=== PATIENT | female | born 1955 | race Two or more races ===

== ENCOUNTER → 2020-07-28 10:36 | Outpatient (BNVA) | payer MEDICAID, SELFPAY | PROVIDERS: PCP Family Medicine; Visit Provider Internal Medicine Cardiovascular Disease | DX: R60.0 Localized edema (principal); M79.604 Pain in right leg; M79.605 Pain in left leg; I25.10 Atherosclerotic heart disease of native coronary artery without angina pectoris; Z79.82 Long term (current) use of aspirin; Z79.899 Other long term (current) drug therapy; Z95.5 Presence of coronary angioplasty implant and graft | CPT/HCPCS: 93005; 99212 ==

== ENCOUNTER 2020-08-06 10:37 | Outpatient (REF) | payer MEDICAID, SELFPAY ==
--- NOTE | 2020-08-06 | MM_ITS ---
EXAMINATION: MM SCREENING DIGITAL BREAST TOMOSYNTHESIS, BILATERAL CLINICAL INFORMATION: Screening. Asymptomatic. The lifetime risk of breast cancer based on the Tyrer-Cuzick Model is 4.2%. COMPARISON: Mammography: May 16, 2016 and studies dating back to January 19, 2010 TECHNIQUE: Digital breast tomosynthesis is performed in both the craniocaudal and mediolateral oblique views along with computer-aided detection (CAD). Synthesized 2D images are generated from the tomosynthesis. FINDINGS: The breasts are almost entirely fatty (ACR BI-RADS breast composition Category a). There are no significant masses, abnormal calcifications, or other abnormalities. MM/MM tomosynthesis screening BI IMPRESSION: There are no significant changes from prior study. ASSESSMENT: BI-RADS 1: Negative RECOMMENDATION: Routine annual mammography screening. This patient's information was entered into a reminder system with a target due date for their next mammogram.
== END 2020-08-06 10:38 | disposition home or self-care (01) ==
LOC: HO.MAMMO 10:37
PROVIDERS: PCP Family Medicine; Visit Provider Family Medicine
DX: Z12.31 Encounter for screening mammogram for malignant neoplasm of breast (principal)
CPT/HCPCS: 77063; 77067

== ENCOUNTER → 2020-08-23 12:47 | Outpatient (REF) | payer MEDICAID, SELFPAY ==
--- NOTE | 2020-08-23 12:51 | CA_ITS ---
Transthoracic Echocardiogram Patient (Last, First, Middle): Malia Marrero, Gender: Female Date of : 1955 Age: 65 Procedure Date: 08/23/2020 Procedure Type: Transthoracic Echocardiogram Location: OP Height: 157.48 cm Weight: 77.11 kg BSA: 1.78 m2 Heart Rate: bpm BP: 120 / 64 mmHg Supervisor Sewing Room: Subha MD: Geovanni Benoit MD Station Engineer Main Line: Geovanni Benoit MD Symptoms: R60.0 - Localized edema Study Quality: Fair ECG Rhythm: Sinus Conclusions: - 1. Normal LV systolic function with grade 1 diastolic dysfunction 2. Mild mitral regurgitation 3. Normal RV systolic pressure 4. No pericardial effusion Findings Procedure Information Contrast agent, definity, is being given per protocol without apparent complications. Left Ventricle Normal left ventricular size, thickness, and systolic function. The visually estimated ejection fraction is between 60-65%. Spectral Doppler is indicative of an impaired relaxation filling pattern. E/E prime ratio is <8, consistent with normal filling pressures. Evidence suggests grade I (mild) diastolic dysfunction. Right Ventricle Normal right ventricular cavity size and systolic function. Atria Both atria are normal in size. Interatrial shunt cannot be excluded. Aortic Valve The aortic valve structure and function is likely normal. There is no aortic valve stenosis. There is no aortic valve regurgitation. Mitral Valve Normal mitral valve structure and function. There is mild mitral valve regurgitation. There is no mitral valve stenosis. Pulmonic Valve The pulmonic valve was not well visualized. Tricuspid Valve Normal tricuspid valve structure. There is trace tricuspid valve regurgitation. The right ventricular systolic pressure is normal. The right ventricular systolic pressure is 23 mmHg. Normal right atrial pressure. There is no evidence of pulmonary hypertension. Great Vessels All visible segments of the aorta are normal in size. The pulmonary artery was not well visualized. Venous The inferior vena cava is normal in size and collapses greater than 50% with inspiration. Pericardium/Pleural There is no evidence of pericardial effusion. Prior Study Comparison No previous transthoracic echocardiogram in last 5 years for comparison Measurements 2D Linear Measurements RVIDd: 2.33 RVIDd Index: 1.31 IVSd: 0.96 0.6-0.9/0.6-1.0 cm LVIDd: 4.51 3.9-5.3/4.2-5.9 cm LVIDd Index: 2.53 2.4-3.2/2.2-3.1 cm/m2 LVIDs: 3.31 2.0-3.6 cm LVPWd: 0.83 0.7-1.1 cm Ao Root: 2.50 2.1-3.5 cm LA Diam: 3.00 2.7-3.8/3.0-4.0 cm LAIDs Index: 1.69 1.5-2.3 cm/m2 LV Mass: 164.52 67-162/88-224 g LV Mass Index: 92.43 43-95/49-115 g/m2 LVOT Diam: 2.10 3.0+(-)1.3 cm 2D Systolic Function EF 4C: 57.60 >55% EF 2C: 73.30 >55% EF BiP: 66.30 >55% Mitral Valve MV Pk E: 0.97 MV PK A: 0.99 MV Decel Time: 196.00 E/A: 1.00 E'Lateral: 9.46 E'Medial: 7.62 E/E' Med: 12.70 E/E' Lat: 10.20 Aortic Valve AoV Pk Juan: 1.25 AoV Mn Juan: 0.77 AoV VTI: 0.28 AoV Pk Grad: 6.00 Aov Mn Grad: 3.00 QIAN Cont.VTI: 3.52 LVOT LVOT Pk Juan: 1.23 LVOT Mn Juan: 0.79 LVOT VTI: 0.28 LVOT Pk Grad: 6.00 LVOT Mn Grad: 3.00 LVOT Diam: 2.10 LVOT Area: 3.46 Diastolic Function MV Pk E: 0.97 MV Pk A: 0.99 E/A: 1.00 E'Medial: 7.62 E/E' Med: 12.70 E' Laterial: 9.46 E/E' Lat: 10.20 Tricuspid Valve TR Pk Juan: 2.23 TR Pk Grad: 20.00 RA Press: 3.00 RVSP: 23.00 Great Vessels Aorta Ao Root-2D: 2.50 2.0-3.7 cm Ao Asc: 2.90 2.1-3.4 cm Updated in Other Vendor System with Status of Final Geovanni Benoit MD electronically signed on 08/24/2020 11:28:05 AM with status of Final
--- NOTE | 2020-08-23 14:03 | US_ITS ---
EXAMINATION: NONINVASIVE ASSESSMENT OF THE ARTERIES OF BOTH LOWER EXTREMITIES WITH ANKLE PRESSURE MEASUREMENTS, ANKLE BRACHIAL INDICES AND BILATERAL LOWER EXTREMITY DUPLEX CLINICAL INFORMATION: Concern for peripheral vascular disease. TECHNIQUE: Ankle pressure measurements and ankle brachial indices were obtained of the lower extremity arterial system bilaterally. In addition, duplex Doppler techniques with wave form analysis and measurement of velocities in the common femoral, profunda femoral, superficial femoral, popliteal and tibial arteries was performed. The study was performed only at rest. COMPARISON: None FINDINGS: NONINVASIVE ASSESSMENT OF THE ARTERIES OF BOTH LOWER EXTREMITIES WITH ABIs: RIGHT LEG: Right ankle-brachial index: 1.04 Right ankle pressures: PT 145 DP 153 LEFT LEG: Ankle-brachial index: 1.06 Pressures: PT 156 DP 143 SARAY Reference: - >0.97-1.25 = normal - no significant arterial disease - 0.75-0.96 = mild peripheral arterial disease - 0.5-0.74 = moderate peripheral arterial disease - <0.50 = severe peripheral arterial disease BILATERAL LOWER EXTREMITY DUPLEX ULTRASOUND: RIGHT LEG: Common femoral artery: 142 cm/s, Diastolic flow reversal: Yes Profunda femoris artery: 82 cm/s, Diastolic flow reversal: Yes Superficial femoral artery (proximal): 116 cm/s, Diastolic flow reversal: Yes Superficial femoral artery (mid): 106 cm/s, Diastolic flow reversal: Yes Superficial femoral artery (distal): 90 cm/s, Diastolic flow reversal: Yes Popliteal artery: 105 cm/s, Diastolic flow reversal: Yes Posterior tibial artery: 55 cm/s, Diastolic flow reversal: Yes LEFT LEG: Common femoral artery: 177 cm/s, Diastolic flow reversal: Yes Profunda femoris artery: 132 cm/s, Diastolic flow reversal: Yes Superficial femoral artery (proximal): 118 cm/s, Diastolic flow reversal: Yes Superficial femoral artery (mid): 110 cm/s, Diastolic flow reversal: Yes Superficial femoral artery (distal): 107 cm/s, Diastolic flow reversal: Yes Popliteal artery: 89 cm/s, Diastolic flow reversal: Yes Posterior tibial artery: 66 cm/s, Diastolic flow reversal: Yes US/US arterial duplex LE BI IMPRESSION: RIGHT LEG: Mild, nonflow limiting common femoral artery stenosis. No evidence of arterial insufficiency involving the right lower extremity. LEFT LEG: Mild, nonflow limiting common femoral and proximal profunda femoris artery stenosis. No evidence of arterial insufficiency involving the left lower extremity.
== END ==
LOC: HO.CARD 12:47
PROVIDERS: Visit Provider Internal Medicine Cardiovascular Disease
DX: I25.10 Atherosclerotic heart disease of native coronary artery without angina pectoris (principal); M79.604 Pain in right leg; M79.605 Pain in left leg; I10 Essential (primary) hypertension
CPT/HCPCS: 93306; 93925; Q9957

== ENCOUNTER 2021-01-12 16:16 | Emergency (ER) | payer MEDICAID, SELFPAY ==
[2021-01-12 17:42] VITALS: BP 156/79; PULSE 84; RESP 18; TEMP 36.9; O2SAT 99; BMI 34.1
--- NOTE | 2021-01-12 18:22 | ED.DENTAL ---
HPI - Dental/Oral General Chief complaint: Dental/Oral Stated complaint: DENTAL PAIN Time Seen by Provider: 01/12/21 18:22 Source: patient Mode of arrival: ambulatory Limitations: no limitations History of Present Illness HPI Narrative: 65 y/o female presenting with right upper dental pain since yesterday. She has a known upper molar that needs to be extracted and she has an appointment with an Oral Surgeon on 01/20. She has some new right sided facial swelling and pain with chewing. No fever or chills. She denies dental trauma or breaking of the tooth. MD Complaint: tooth pain Location: Tooth # (1) Teeth map: 1. decayed tooth Onset (ago): day(s) (2) Duration: constant Severity: moderate Relieving factors: NSAIDs Exacerbating factors: chewing, cold and heat Context: history of dental caries and poor dental care Associated symptoms: gum swelling Treatment prior to arrival: none Related Data Home Medications Medication Instructions Recorded Confirmed aspirin 81 mg tablet,delayed 81 mg PO BEDTIME 07/28/20 07/28/20 release atorvastatin 80 mg tablet 80 mg PO BEDTIME 07/28/20 07/28/20 buspirone 7.5 mg tablet 7.5 mg PO QID 07/28/20 07/28/20 calcium carbonate 600 mg (1,500 1 tab PO BID 07/28/20 07/28/20 mg)-vitamin D3 200 unit tablet clonidine HCl 0.1 mg tablet 0.1 mg PO BEDTIME 07/28/20 07/28/20 ergocalciferol (vitamin D2) 1,250 1,250 mcg PO QWEEK 07/28/20 07/28/20 mcg (50,000 unit) capsule famotidine 40 mg tablet 40 mg PO BEDTIME 07/28/20 07/28/20 fluticasone 500 mcg-salmeterol 50 1 ea PO BID 07/28/20 07/28/20 mcg/dose blistr powdr for inhalation fluticasone propionate 50 2 spray INTRANASAL DAILY 07/28/20 07/28/20 mcg/actuation nasal spray,suspension gabapentin 300 mg capsule 300 mg PO BID 07/28/20 07/28/20 hydrochlorothiazide 25 mg tablet 25 mg PO QAM 07/28/20 07/28/20 lisinopril 40 mg tablet 40 mg PO QAM 07/28/20 07/28/20 loratadine 10 mg tablet 10 mg PO QAM 07/28/20 07/28/20 metformin 500 mg tablet 500 mg PO BEDTIME 07/28/20 07/28/20 metoprolol tartrate 50 mg tablet 50 mg PO BID 07/28/20 07/28/20 montelukast 10 mg tablet 10 mg PO BEDTIME 07/28/20 07/28/20 paroxetine HCl 40 mg tablet 40 mg PO QAM 07/28/20 07/28/20 tiotropium bromide 2.5 2 puff PO DAILY 07/28/20 07/28/20 mcg/actuation mist for inhalation topiramate 25 mg sprinkle capsule 100 mg PO BEDTIME 07/28/20 07/28/20 zolpidem 10 mg tablet 10 mg PO BEDTIME PRN 07/28/20 07/28/20 Previous Rx's Medication Instructions Recorded ibuprofen 600 mg PO Q6H PRN #20 tab 01/12/21 penicillin V potassium 500 mg PO TID 7 Days #21 tab 01/12/21 tramadol 50 mg PO Q8H PRN #7 tab 01/12/21 Allergies Allergy/AdvReac Type Severity Reaction Status Date / Time ENVIRONMENTAL Allergy Unknown SNEEZING,SO Uncoded 05/20/20 16:58 B Review of Systems Review of Systems: Constitutional: No Fever, No Chills ENT/Mouth: No sore throat, No Rhinorrhea, No Swallowing Difficulty, +dental pain Eyes: No Eye Pain, No Swelling, No Redness Cardiovascular: No Chest Pain, No SOB Respiratory: No Cough, No Sputum Gastrointestinal: No Nausea, No Vomiting Skin: No Skin Lesions, No rash Neuro + Headache PMFSH Past Medical History Attestation statement: The following information was validated with the patient. Medical History CAD (coronary artery disease) Diabetes mellitus HTN (hypertension) Hyperlipidemia Surgical History History of cholecystectomy History of tonsillectomy S/P coronary artery stent placement Family History Family History Father Diabetes HTN (hypertension) CVD (cardiovascular disease) Heart failure Mother CVD (cardiovascular disease) Hypercholesteremia Social History Social History Smoking Status: Former smoker Advance Directives: No Advance Directives Information Provided: Yes Patient : No Physical Exam Vital Signs: Vital Signs: Last Vital Signs Temp 98.5 F 01/12/21 17:42 Pulse 84 01/12/21 17:42 Resp 18 01/12/21 17:42 BP 156/79 H 01/12/21 17:42 Pulse Ox 99 01/12/21 17:42 Body Mass Index 34.1 Appearance: Alert. Oriented X3. No acute distress. HEENT: mild right sided facial swelling, upper right molar with significant decay, surrounding gingival erythema and edema without fluctuance, tooth #1 is tender to touch, not mobile, brown discoloration. Neck: normal inspection, trachea midline, no submandibular swelling CVS: Normal heart rate and rhythm. Pulses normal. Respiratory: No respiratory distress. Skin: Skin warm and dry. Normal skin color. Normal skin turgor. No rashes. Extremities: atraumatic, no edema Neuro: Oriented X 3. Non-vocal, handling secretions normally, normal voice. Course Course Course Narrative: 65 y/o female presenting with acute on chronic right uppe rmolar pain with known diseased tooth that needs extraction. No palpable abscess on exam. Will treat with PO abx and pain control until her tooth can be extracted on 01/20. She was counseled on management and told to return to the ER if pain/swelling worsens. Stable for d/c. MDM - Dental/Oral Differential Diagnosis Differential diagnosis: Likely gingival abscess, dental caries, dental abscess, fracture of tooth and aphthous ulcer Critical Care Time Critical Care Time Critical Care Time: No Discharge Plan Discharge Clinical Impression: Toothache Patient Disposition: Home, Self-Care Instructions: Toothache (ED) Additional Instructions: Take the prescribed antibiotic as directed for 1 full week. Follow up with your Oral Surgeon as scheduled on 01/20. Avoid very hot or very cold foods. If you have worsening pain or swelling come back to the ER for further evaluation. Prescriptions: New penicillin V potassium 500 mg tablet 500 mg PO TID 7 Days Qty: 21 RF: 0 ibuprofen 600 mg tablet 600 mg PO Q6H PRN (Reason: pain) Qty: 20 RF: 0 tramadol 50 mg tablet 50 mg PO Q8H PRN (Reason: pain) Qty: 7 RF: 0 No Action buspirone 7.5 mg tablet 7.5 mg PO QID RF: 0 Spiriva Respimat 2.5 mcg/actuation mist 2 puff PO DAILY RF: 0 loratadine 10 mg tablet 10 mg PO QAM RF: 0 fluticasone propionate 50 mcg/actuation spray,suspension 2 spray intranasal DAILY RF: 0 lisinopril 40 mg tablet 40 mg PO QAM RF: 0 paroxetine HCl 40 mg tablet 40 mg PO QAM RF: 0 zolpidem 10 mg tablet 10 mg PO BEDTIME PRN (Reason: insomnia) RF: 0 ergocalciferol (vitamin D2) 1,250 mcg (50,000 unit) capsule 1,250 mcg PO QWEEK RF: 0 hydrochlorothiazide 25 mg tablet 25 mg PO QAM RF: 0 montelukast 10 mg tablet 10 mg PO BEDTIME RF: 0 gabapentin 300 mg capsule 300 mg PO BID RF: 0 metoprolol tartrate 50 mg tablet 50 mg PO BID RF: 0 fluticasone propion-salmeterol 500-50 mcg/dose blister with device 1 ea PO BID RF: 0 topiramate 25 mg capsule, sprinkle 100 mg PO BEDTIME RF: 0 aspirin 81 mg tablet,delayed release (DR/EC) 81 mg PO BEDTIME RF: 0 calcium carbonate-vitamin D3 600 mg(1,500mg) -200 unit tablet 1 tab PO BID RF: 0 clonidine HCl 0.1 mg tablet 0.1 mg PO BEDTIME RF: 0 atorvastatin 80 mg tablet 80 mg PO BEDTIME RF: 0 metformin 500 mg tablet 500 mg PO BEDTIME RF: 0 famotidine 40 mg tablet 40 mg PO BEDTIME RF: 0
[2021-01-12 19:13] VITALS: BP 166/96; PULSE 83; RESP 16; TEMP 36.6
== END 2021-01-12 19:47 | disposition home or self-care (01) ==
PROVIDERS: Emergency Provider Internal Medicine; PCP Family Medicine
DX: K08.89 Other specified disorders of teeth and supporting structures (principal); Z79.899 Other long term (current) drug therapy; Z87.891 Personal history of nicotine dependence
CPT/HCPCS: 99283

== ENCOUNTER 2021-07-27 13:35 | Outpatient (REF) | payer MEDICARE, MEDICAID, SELFPAY ==
[2021-07-27 14:32] LABS: Hematocrit 40.3 % (37.0-47.0); Hemoglobin 13.2 g/dl (12.0-16.0); Mean Corpuscular HGB Conc 32.8 g/dl (31.0-35.0); Mean Corpuscular Hemoglobin 27.2 pg (27.0-33.0); Mean Corpuscular Volume 83.1 fL (80.0-98.0); Mean Platelet Volume 11.2 fL (9.4-12.3); Platelet Count 247 X10*3/uL (160-400); Red Blood Count 4.85 X10*6/uL (4.20-5.50); Red Cell Distribution Width 13.8 % (11.0-16.0); White Blood Count 7.3 X10*3/uL (4.8-10.8)
[2021-07-27 15:05] LABS: Alanine Aminotransferase 16 U/L (0-31); Albumin Level 4.1 g/dL (3.5-5.0); Alkaline Phosphatase 141 U/L (39-117); Anion Gap 16 (12-20); Aspartate Amino Transferase 18 U/L (5-31); Bilirubin Direct 0.3 mg/dL (0.0-0.5); Bilirubin Total 0.6 mg/dL (0.0-1.0); Blood Urea Nitrogen 15 mg/dL (9-16); Calcium 9.5 mg/dL (8.4-10.2); Carbon Dioxide 28 mmol/L (22-29); Chloride 103 mmol/L (96-108); Cholesterol 149 mg/dL; Estimated Glomerular Filt Rate > 60; Glucose Random 107 mg/dL (60-115); HDL Cholesterol 51 mg/dL; LDL Cholesterol Calculated 73 mg/dl; Potassium 3.1 mmol/L (3.3-5.1); Sodium 144 mmol/L (135-145); Total Protein 7.1 g/dL (6.5-8.0); Triglycerides 127 mg/dL
[2021-07-27 15:13] LABS: Estimated Average Glucose 137 mg/dL; Hemoglobin A1c % 6.4 %
[2021-07-27 15:28] LABS: Free T4 (Free Thyroxine) 1.19 ng/dL (0.71-1.85); Thyroid Stimulating Hormone 2.48 uIU/mL (0.32-4.0); Vitamin D 25-OH Total 31.5 ng/mL (>30)
[2021-07-27 16:49] LABS: Creatinine Urine 250.53 mg/dL; Microalbum/Creatinine Ratio Ur 4.7 ug/mg cr
[2021-07-28 10:13] LABS: ~HepC Num1 0.08 S/CO (0.00-0.79); ~Hepatitis B Surface Antibody NONREACTIVE (Nonreactive); ~Hepatitis C Antibody Nonreactive (Nonreactive)
[2021-07-28 10:34] LABS: HBsAGNum1 0.11 S/CO (0.00-0.99); HIV AB/AG Nonreactive (Nonreactive); HIV Num 1 0.09 S/CO (0.00-0.99); Hepatitis B Surface Antigen Negative (Negative)
[2021-07-29 08:26] LABS: Syphilis Screen Reactive (Nonreactive)
[2021-08-01 12:06] LABS: Alpha Fetoprotein 4.3 ng/mL
== END 2021-07-27 13:36 | disposition home or self-care (01) ==
LOC: HO.LAB 13:35
PROVIDERS: PCP Family Medicine; Visit Provider Family Medicine
DX: E11.42 Type 2 diabetes mellitus with diabetic polyneuropathy (principal)
CPT/HCPCS: 36415; 80048; 80061; 80076; 82043; 82105; 82306; 83036; 84439; 84443; 85027; 86592; 86706; 86780; 86803; 87340; 87389

== ENCOUNTER → 2021-08-01 12:53 | Outpatient (BNVA) | payer MEDICARE, MEDICAID, SELFPAY | PROVIDERS: PCP Family Medicine; Referring Provider Family Medicine; Visit Provider Internal Medicine Cardiovascular Disease | DX: I25.10 Atherosclerotic heart disease of native coronary artery without angina pectoris (principal); I10 Essential (primary) hypertension; R07.89 Other chest pain | CPT/HCPCS: 93005; 99212 ==

== ENCOUNTER 2021-08-01 13:32 | Outpatient (REF) | payer MEDICARE, MEDICAID, SELFPAY ==
[2021-08-01 15:52] LABS: CT PCR NOT DETECTED (Not Detect.); NG PCR NOT DETECTED (Not Detect.)
== END 2021-08-01 13:33 | disposition home or self-care (01) ==
LOC: HO.LNP 13:32
PROVIDERS: Visit Provider Family Medicine
DX: E11.42 Type 2 diabetes mellitus with diabetic polyneuropathy (principal); R07.89 Other chest pain; I25.10 Atherosclerotic heart disease of native coronary artery without angina pectoris
CPT/HCPCS: 87491; 87591; 93005; 99212

== ENCOUNTER → 2021-08-15 10:00 | Outpatient (REF) | payer MEDICARE, MEDICAID, SELFPAY ==
--- NOTE | ~2021-08-15 | NM_ITS ---
Myocardial perfusion study Indication: Chest pain to evaluate for myocardial ischemia Technique: The patient was brought in for a Lexiscan perfusion study on 08/15/2021. Patient performed low-level exercise and was injected 0.4 mg of Lexiscan intravenously. Within a minute of injection, 30 mCi of sestamibi was given intravenously. Images were obtained using the SPECT gamma camera interlaced with the gating device. Images were obtained in supine position. Resting perfusion study was performed on 08/17/2021. Patient was administered 30 mCi of sestamibi intravenously at rest. Images were then obtained in supine position. Images obtained with and without CT attenuation. Total DLP 99 mGy-cm. Images were processed with the software and compared side to side in short axis, horizontal long axis and vertical long axis views. Findings: The stress perfusion study showed non attenuated images show normal uptake of radiotracer in all segments of LV myocardium except for small area of mildly reduced uptake in the basal septum.. The gated study shows normal LV systolic function with calculated LVEF of 69%. LV cavity is normal in size. The gated study shows normal systolic wall thickening and contraction of segments. Resting study shows no change in perfusion pattern compared to stress perfusion study on non attenuated images. Gating at rest reveals normal systolic wall motion with ejection fraction at 61%. The findings are consistent with no clear reversible defect suggestive of ischemia. NM/NM yany perf SPECT rest & str Impression: 1. Myocardial perfusion imaging study shows likely normal myocardial perfusion 2. Gated LVEF is 69% 3. Transient ischemic dilatation not present EKG is nondiagnostic for ischemia
--- NOTE | 2021-08-15 10:06 | CA_ITS ---
Acquisition Time: 2021-08-15 10:42:41 Total Exercise Time: 00:02:00 Test Indications: CHEST PAIN Medications: ASA ATORVASTATIN LISINOPRIL METOPROLOL METFORMIN Protocol: LEXISCAN Max HR: 121 BPM 78% of Pred: 155 BPM Max BP: 122/068 mmHG Max Work Load: 1.0 METS Pharmacological stress test with Lexiscan injection, while sitting and kicking her legs, without anginal symptoms, without arrythmia, with normotensive response to injection, with nondiagnostic EKG for ischemia. In recovery she reported lightheadedness that was treated with Aminophylline 75mg IVP to reverse Lexiscan with resolution of symptom. Nuclear images pending. Test reviewed with Dr Benoit. Referred By: Geovanni Benoit Overread By: STERLING JAY
== END ==
LOC: HO.CARD 10:00
PROVIDERS: PCP Family Medicine; Visit Provider Internal Medicine Cardiovascular Disease
DX: R07.89 Other chest pain (principal); I25.10 Atherosclerotic heart disease of native coronary artery without angina pectoris
CPT/HCPCS: 78452; 93017; A9500; J0280; J2785

== ENCOUNTER 2022-05-23 12:59 | Outpatient (REF) | payer OTHER, SELFPAY ==
--- NOTE | ~2022-05-23 | MM_ITS ---
EXAMINATION: MM SCREENING DIGITAL BREAST TOMOSYNTHESIS, BILATERAL CLINICAL INFORMATION: Screening. Asymptomatic. The lifetime risk of breast cancer based on the Tyrer-Cuzick Model is 4%. COMPARISON: Mammography: 08/06/2020, 05/16/2016 TECHNIQUE: Digital breast tomosynthesis is performed in both the craniocaudal and mediolateral oblique views along with computer-aided detection (CAD). Synthesized 2D images are generated from the tomosynthesis. Additional left MLO view is provided. FINDINGS: There are scattered areas of fibroglandular density (ACR BI-RADS breast composition Category b). There are no significant masses, abnormal calcifications, or other abnormalities. Parenchymal pattern is similar to prior studies and there is no developing density or architectural abnormality. The axilla are unremarkable. MM/MM tomosynthesis screening BI IMPRESSION: No mammographic evidence of malignancy. ASSESSMENT: BI-RADS 1: Negative RECOMMENDATION: Routine annual mammography screening. This patient's information was entered into a reminder system with a target due date for their next mammogram.
== END 2022-05-23 13:00 | disposition home or self-care (01) ==
LOC: HO.MAMMO 12:59
PROVIDERS: PCP Family Medicine; Visit Provider Family Medicine
DX: Z12.31 Encounter for screening mammogram for malignant neoplasm of breast (principal)
CPT/HCPCS: 77063; 77067

== ENCOUNTER → 2022-07-24 14:39 | Outpatient (BNVA) | payer OTHER, SELFPAY | PROVIDERS: PCP Family Medicine; Visit Provider Nurse Practitioner Family | DX: Z12.11 Encounter for screening for malignant neoplasm of colon (principal); K58.1 Irritable bowel syndrome with constipation; R14.0 Abdominal distension (gaseous); K21.9 Gastro-esophageal reflux disease without esophagitis | CPT/HCPCS: 99202 ==

== ENCOUNTER → 2022-09-11 12:39 | Outpatient (BNVA) | payer OTHER, SELFPAY | PROVIDERS: PCP Family Medicine; Referring Provider Family Medicine; Visit Provider Internal Medicine Cardiovascular Disease | DX: R07.9 Chest pain, unspecified (principal); I25.10 Atherosclerotic heart disease of native coronary artery without angina pectoris; I10 Essential (primary) hypertension; E11.9 Type 2 diabetes mellitus without complications; Z95.5 Presence of coronary angioplasty implant and graft | CPT/HCPCS: 93005; 99212 ==

== ENCOUNTER 2022-09-15 13:01 | Outpatient (REF) | payer OTHER, SELFPAY ==
[2022-09-15 13:30] LABS: Hematocrit 41.8 % (37.0-47.0); Hemoglobin 13.6 g/dl (12.0-16.0); Mean Corpuscular HGB Conc 32.5 g/dl (31.0-35.0); Mean Corpuscular Volume 82.9 fL (80.0-98.0); Mean Platelet Volume 11.3 fL (9.4-12.3); Platelet Count 233 X10*3/uL (160-400); Red Blood Count 5.04 X10*6/uL (4.20-5.50); Red Cell Distribution Width 13.5 % (11.0-16.0); White Blood Count 8.4 X10*3/uL (4.8-10.8)
[2022-09-15 13:55] LABS: Anion Gap 14 (12-20); Blood Urea Nitrogen 16 mg/dL (9-16); Calcium 9.2 mg/dL (8.4-10.2); Carbon Dioxide 30 mmol/L (22-29); Chloride 102 mmol/L (96-108); Cholesterol 141 mg/dL; Estimated Glomerular Filt Rate > 60; Glucose Random 112 mg/dL (60-115); HDL Cholesterol 47 mg/dL; LDL Cholesterol Calculated 66 mg/dl; Potassium 3.3 mmol/L (3.3-5.1); Sodium 143 mmol/L (135-145); Triglycerides 144 mg/dL
== END 2022-09-15 13:02 | disposition home or self-care (01) ==
LOC: HO.LAB 13:01
PROVIDERS: PCP Family Medicine; Visit Provider Internal Medicine Cardiovascular Disease
DX: I25.10 Atherosclerotic heart disease of native coronary artery without angina pectoris (principal)
CPT/HCPCS: 36415; 80048; 80061; 85027; 85610

== ENCOUNTER → 2022-10-18 13:59 | Outpatient (BNVA) | payer OTHER, SELFPAY | PROVIDERS: PCP Family Medicine; Referring Provider Family Medicine; Visit Provider Nurse Practitioner Family | DX: I25.10 Atherosclerotic heart disease of native coronary artery without angina pectoris (principal); I10 Essential (primary) hypertension; E78.5 Hyperlipidemia, unspecified; E11.9 Type 2 diabetes mellitus without complications; Z79.82 Long term (current) use of aspirin; Z79.899 Other long term (current) drug therapy; Z98.890 Other specified postprocedural states | CPT/HCPCS: 99212 ==

== ENCOUNTER → 2022-10-24 13:28 | Outpatient (BNVA) | payer OTHER, SELFPAY | PROVIDERS: PCP Family Medicine; Visit Provider Nurse Practitioner Family | DX: K58.1 Irritable bowel syndrome with constipation (principal); K59.04 Chronic idiopathic constipation; K21.9 Gastro-esophageal reflux disease without esophagitis; Z79.899 Other long term (current) drug therapy | CPT/HCPCS: 99212 ==

== ENCOUNTER → 2023-02-13 12:39 | Outpatient (BNVA) | payer OTHER, SELFPAY | PROVIDERS: Visit Provider Nurse Practitioner Family | DX: K58.9 Irritable bowel syndrome, unspecified (principal); K59.04 Chronic idiopathic constipation; K21.9 Gastro-esophageal reflux disease without esophagitis | CPT/HCPCS: 99212 ==

== ENCOUNTER 2023-04-19 12:04 | Outpatient (AMB) | payer OTHER, SELFPAY ==
[2023-04-19 12:43] VITALS: BP 120/60; PULSE 73; BMI 31.2
--- NOTE | 2023-04-19 12:43 | MHC.OFFVIS ---
Intake Vital Signs 04/19/23 12:43 Height 5 ft 1 in Weight 165 lb 5.547 oz BMI 31.2 BP 120/60 Blood Pressure Location Lt brachial Position Sitting Pulse 73 Pulse Source Pulse Oximeter Intake Visit Reasons: 6 month follow-up Intake Note: 6 month f/up Child & Adolescent Psychiatrist Required: No Allergies ENVIRONMENTAL Allergy (Unknown, Uncoded 10/24/22 13:47) SNEEZING,SOB Medication List - Last Reconciled 04/19/23 by Geovnani Benoit MD aspirin 81 mg PO BEDTIME atorvastatin 80 mg PO BEDTIME buspirone 7.5 mg PO QID calcium carbonate-vitamin D3 600 mg-5 mcg (200 unit) 1 tab PO BID cholecalciferol (vitamin D3) (Vitamin D3) 50 mcg PO QAM clonidine HCl 0.1 mg PO BEDTIME docusate sodium 100 mg PO BEDTIME famotidine 40 mg PO BEDTIME fluticasone propion-salmeterol 500-50 mcg/dose 1 ea PO BID fluticasone propionate 50 mcg/actuation 2 sprays intranasal DAILY hydrochlorothiazide 25 mg PO QAM hydrocortisone 2.5% (Proctosol HC) 1 appl FL BID-QID PRN hydroxyzine pamoate 25 mg PO BEDTIME PRN lisinopril 40 mg PO QAM metformin 500 mg PO BEDTIME metoprolol tartrate 50 mg PO BID montelukast 10 mg PO BEDTIME pantoprazole 40 mg PO DAILY paroxetine HCl 40 mg PO QAM polyethylene glycol 3350 (Miralax) 17 grams PO DAILY pregabalin 100 mg PO TID umeclidinium 62.5 mcg/actuation (Incruse Ellipta) ea inhalation zolpidem 5 mg PO BEDTIME PRN HPI HPI Comments History of Present Illness Details Malia comes for follow-up. Patient has had no clear cardiac symptoms at this point time. Denies any anginal symptoms. Takes all her medications. Is most bothered by her asthma symptoms. Says any humid and polluted whether she gets more symptoms. She is currently not seeing pulmonary. Her last LDL was well optimized. ON LICENSE OF [facility] Medical History CAD (coronary artery disease) Diabetes mellitus HTN (hypertension) Hyperlipidemia Surgical History History of cholecystectomy History of tonsillectomy S/P coronary artery stent placement Family History Father Diabetes HTN (hypertension) CVD (cardiovascular disease) Heart failure Mother CVD (cardiovascular disease) Hypercholesteremia Social History Alcohol intake: former Year quit: 1991 Patient Tobacco Use Status: Former Tobacco user Quit Date: 2000 Years Smoked: 20 +/- Review of Systems ENT Reports dizziness Card Denies chest pain, Denies chest pain at rest, Denies chest pain with activity, Denies rapid heart rate, Denies pedal edema, Denies edema, Denies leg edema, Denies lightheadedness, Denies palpitations, Denies dyspnea, Denies dyspnea on exertion and Denies orthopnea Resp Denies cough, Denies dyspnea and Denies dyspnea on exertion GI Denies hematochezia and Denies change in stool character Musc Denies abnormal gait, Reports limited range of motion, Reports muscle cramps, Denies muscle weakness, Denies numbness, Denies radiating pain into limb, Denies stiffness and Denies tingling Neuro Denies abnormal gait, Reports dizziness, Denies numbness and Denies tingling Endo Denies palpitations Physical Exam Vital Signs: Last Vital Signs Pulse 73 04/19/23 12:43 BP 120/60 04/19/23 12:43 BMI result Body Mass Index 31.2 Const General: cooperative, comfortable and no acute distress Orientation/consciousness: patient oriented x3 Neck Neck: Yes normal visual inspection and Yes no JVD Resp Other: Bilateral expiratory wheezes noted Effort & Inspection: normal respiratory effort Auscultation: no rales, no rhonchi and wheezes expiratory wheezes Cardio Rate: regular rate Rhythm: regular rhythm Heart sounds: S1 normal heart sound present, S2 normal heart sound present, no gallops, no murmurs and no rubs GI Inspection: Yes normal to inspection Neuro General: patient oriented x3 Extrem General: Yes normal to inspection Psych Appearance: grossly normal Mental Status: mental status grossly normal Speech and movement: Normal speech and movement present Assessment & Plan Assessment & Plan (1) CAD (coronary artery disease): Code(s): I25.10 - Atherosclerotic heart disease of [place] coronary artery without angina pectoris Plan: Coronary artery disease patent stents to the RCA and moderate disease in the ostial diagonal branch. Currently no symptoms angina on current medical therapy. Continue lifelong aspirin therapy. Continue aggressive risk factor modification. LDL is currently well optimized on high-intensity statin therapy. Diabetes under your care with goal hemoglobin A1c less than 7%. (2) HTN (hypertension): Code(s): I10 - Essential (primary) hypertension Plan: Hypertension is currently well optimized on current therapy. Importance of good blood pressure control was discussed advised to monitor blood pressure at home maintain a log. Goal blood pressure less than 130/84. Advised low-salt diet. Advised to maintain activity level as tolerated. Will follow up in the clinic in 1 year's time, sooner p.r.n.. Thank you for allowing me to partake in her care Coding Level of Care Code Est Pt Level 4 (44809) Diagnoses CAD (coronary artery disease) I25.10 HTN (hypertension) I10
== END 2023-04-19 13:01 | disposition home or self-care (01) ==
PROVIDERS: PCP Family Medicine; Referring Provider Family Medicine; Visit Provider Internal Medicine Cardiovascular Disease
DX: I25.10 Atherosclerotic heart disease of native coronary artery without angina pectoris (principal); I10 Essential (primary) hypertension
CPT/HCPCS: 99214

== ENCOUNTER → 2023-04-19 12:04 | Outpatient (BNVA) | payer OTHER, SELFPAY | PROVIDERS: PCP Family Medicine; Referring Provider Family Medicine; Visit Provider Internal Medicine Cardiovascular Disease | DX: I25.10 Atherosclerotic heart disease of native coronary artery without angina pectoris (principal); I10 Essential (primary) hypertension | CPT/HCPCS: 99212 ==

== ENCOUNTER 2023-08-21 12:42 | Outpatient (AMB) | payer OTHER, SELFPAY ==
--- NOTE | 2023-08-21 12:50 | A.OFFVIS_ITS ---
Intake Vital Signs 08/21/23 12:53 Height 5 ft 1 in Weight 165 lb BMI 31.2 BP 125/49 L Blood Pressure Location Lt brachial Position Sitting Pulse 80 Intake Visit Reasons: 6 mnth f/u Intake Note: Patient 6 month follow up Patient denies any GI issues, just her Asthma is badder her. General Duty Nurse Required: No Accompanied by: Self / Same As Patient Allergies ENVIRONMENTAL Allergy (Unknown, Uncoded 10/24/22 13:47) SNEEZING,SOB HPI 6 mnth f/u HPI Details LAST VISIT IBS (irritable bowel syndrome) Continue following low FODMAP diet as much as possible. Patient denies any abdominal pain or cramping. Denies any abdominal bloating Chronic idiopathic constipation History of constipation continue taking Colace and MiraLax. Patient was encouraged to increase fluid intake and activity to promote better bowel motility. GERD (gastroesophageal reflux disease) Continue pantoprazole. Patient was encouraged to avoid dietary triggers and late night snacking. Staying upright for minimum 3 hours after meals discussed with patient. I will see patient in 6 months, sooner on as needed basis. Patient is agreeable to this plan and verbalizes understanding of instructions. She was given the opportunity to ask questions and all questions answered. ? TODAY'S VISIT Patient is here today for follow-up. Patient reports that she has been feeling better now that she is taking pantoprazole every morning. Patient states that she is trying to avoid dietary triggers. Staying away from milk, spicy or food that is fried. Patient states that she is moving her bowels better. Taking Colace and MiraLax with affect. Patient denies any melena, hematochezia, unintentional weight loss or ribbon like stools. Denies any dyspepsia, dysphagia or odynophagia. Patient denies any GI concerning symptoms. Patient reports that she had cold symptoms and feels like her asthma is acting up. [facility] Medical History CAD (coronary artery disease) Diabetes mellitus HTN (hypertension) Hyperlipidemia Surgical History History of cholecystectomy S/P coronary artery stent placement History of tonsillectomy Family History Father Diabetes HTN (hypertension) CVD (cardiovascular disease) Heart failure Mother CVD (cardiovascular disease) Hypercholesteremia Social History Alcohol intake: former Year quit: 1991 Patient Tobacco Use Status: Former Tobacco user Quit Date: 2000 Years Smoked: 20 +/- Review of Systems Const Denies weight gain and Denies weight loss ENT Reports no additional complaints, Denies dysphagia and Denies odynophagia Card Reports no additional complaints Resp Reports no additional complaints GI Denies abdominal pain, Denies belching, Denies melena, Denies bloating, Denies change in bowel habits, Denies dysphagia, Denies excessive flatus, Denies dyspepsia, Denies heartburn, Denies diarrhea, Denies loose stools, Denies nausea, Denies odynophagia and Denies vomiting Reports no additional complaints Musc Reports no additional complaints Neuro Reports no additional complaints Psych Reports no additional complaints Endo Reports no additional complaints Physical Exam Vital Signs: Last Vital Signs Pulse 80 08/21/23 12:53 BP 125/49 L 08/21/23 12:53 BMI result Body Mass Index 31.2 Const General: healthy appearing, no acute distress and well developed Nutritional Appearance: obese Orientation/consciousness: patient oriented x3 HEENT Head: Yes normal to inspection, Yes normocephalic and Yes atraumatic Face and sinus: Yes normal facial exam Mouth: Normal oral and palatal mucosa present Throat: Yes posterior oropharynx normal, Yes tonsils normal and Yes uvula m idline Eyes General: appearance normal, both eyes and all related structures Neck Neck: Yes normal visual inspection, Yes full ROM and Yes trachea midline Thyroid: Thyroid normal Resp Effort & Inspection: normal respiratory effort, able to speak in complete sentences, no tracheal deviation and symmetric chest movement Auscultation: clear to auscultation bilaterally Cardio Rate: regular rate GI Inspection: Yes normal to inspection, No distended and Yes obesity Palpation (GI): Soft to palpation, not firm, nontender and No hepatosplenomegaly present Auscultation: normal bowel sounds General: Yes no CVA tenderness Back/Spine/Pelvis Back: no CVA tenderness Skin General skin exam: elasticity normal, turgor normal and dry skin Neuro General: patient oriented x3 Psych Appearance: grossly normal Mental Status: mental status grossly normal Assessment & Plan Assessment & Plan (1) IBS (irritable bowel syndrome): Code(s): K58.9 - Irritable bowel syndrome without diarrhea Qualifiers: Irritable bowel syndrome type: without diarrhea Qualified Code(s): K58.9 - Irritable bowel syndrome without diarrhea (2) Chronic idiopathic constipation: Code(s): K59.04 - Chronic idiopathic constipation (3) GERD (gastroesophageal reflux disease): Code(s): K21.9 - Gastro-esophageal reflux disease without esophagitis Qualifiers: Esophagitis presence: esophagitis presence not specified Qualified Code(s): K21.9 - Gastro-esophageal reflux disease without esophagitis Plan Patient can continue pantoprazole, continue avoiding dietary triggers in late night snacking. Patient can take MiraLax in the morning and Colace in the evening. Patient was encouraged to increase fluid intake and activity to promote better bowel motility. Patient requesting Proctosol to help with hemorrhoids. I will see patient in 6 months, sooner on as needed basis. Patient is agreeable to this plan and verbalizes understanding of instructions. She was given the opportunity to ask questions and all questions answered. Thank you for allowing me to participate in her care Medications: Changed From polyethylene glycol 3350 17 grams PO DAILY 510 grams 2RF To polyethylene glycol 3350 (Miralax) 17 grams PO DAILY 510 grams 2RF Refilled pantoprazole take one tablet half an hour before breakfast 40 mg PO DAILY 90 tabs 2RF K21.9 - Gastro-esophageal reflux disease without esophagitis docusate sodium 100 mg PO BEDTIME 90 caps 3RF K59.00 - Constipation, unspecified hydrocortisone 2.5% (Proctosol HC) 1 appl [place] BID-QID PRN 30 grams 2RF hemorrhoids K64.9 - Unspecified hemorrhoids Coding Level of Care Code Est Pt Level 3 (09438) Diagnoses Irritable bowel syndrome without diarrhea K58.9 Irritable bowel syndrome type: without diarrhea Chronic idiopathic constipation K59.04 Gastroesophageal reflux disease, unspecified whether esophagitis present K21.9 Esophagitis presence: esophagitis presence not specified Time Spent (min) 30 Comment 20 minutes spent with patient and additional 10 minutes spent reviewing her records
[2023-08-21 12:53] VITALS: BP 125/49; PULSE 80; BMI 31.2
== END 2023-08-21 13:26 | disposition home or self-care (01) ==
PROVIDERS: PCP Family Medicine; Visit Provider Nurse Practitioner Family
DX: K58.9 Irritable bowel syndrome, unspecified (principal); K59.04 Chronic idiopathic constipation; K21.9 Gastro-esophageal reflux disease without esophagitis
CPT/HCPCS: 99213

== ENCOUNTER → 2023-08-21 12:42 | Outpatient (BNVA) | payer OTHER, SELFPAY | PROVIDERS: PCP Family Medicine; Visit Provider Nurse Practitioner Family | DX: K58.9 Irritable bowel syndrome, unspecified (principal); K59.04 Chronic idiopathic constipation; K21.9 Gastro-esophageal reflux disease without esophagitis | CPT/HCPCS: 99212 ==

== ENCOUNTER 2023-11-15 13:21 | Inpatient (IN) | payer OTHER, SELFPAY ==
[2023-11-15] VITALS (12 sets, daily range): BP systolic 106–140; BP diastolic 47–73; PULSE 73–117; RESP 13–28; TEMP 36.1–37; O2SAT 88–98; BMI 36.1
--- NOTE | ~2023-11-15 | XR_ITS ---
EXAMINATION: XR CHEST CLINICAL INFORMATION: Cough and hypoxia COMPARISON: None available. TECHNIQUE: 2 views of the chest were obtained. FINDINGS: No significant abnormality is noted involving the heart, lungs, mediastinum, bony thorax or soft tissues. XR/XR chest 2V IMPRESSION: Unremarkable chest examination.
--- NOTE | 2023-11-15 13:33 | ED.GENADULT ---
HPI - General Adult General Chief complaint: Dyspnea Stated complaint: SOB,DUONEB GIVEN PER EMS Time Seen by Provider: 11/15/23 13:33 Related Data Home Medications Medication Instructions Recorded Confirmed aspirin 81 mg tablet,delayed 81 mg PO BEDTIME 07/28/20 04/19/23 release atorvastatin 80 mg tablet 80 mg PO BEDTIME 07/28/20 04/19/23 buspirone 7.5 mg tablet 7.5 mg PO QID 07/28/20 04/19/23 calcium carbonate 600 mg-vitamin 1 tab PO BID 07/28/20 04/19/23 D3 5 mcg (200 unit) tablet clonidine HCl 0.1 mg tablet 0.1 mg PO BEDTIME 07/28/20 04/19/23 fluticasone 500 mcg-salmeterol 50 1 ea PO BID 07/28/20 04/19/23 mcg/dose blistr powdr for inhalation fluticasone propionate 50 2 spray intranasal DAILY 07/28/20 04/19/23 mcg/actuation nasal spray,suspension hydrochlorothiazide 25 mg tablet 25 mg PO QAM 07/28/20 04/19/23 lisinopril 40 mg tablet 40 mg PO QAM 07/28/20 04/19/23 metformin 500 mg tablet 500 mg PO BEDTIME 07/28/20 04/19/23 metoprolol tartrate 50 mg tablet 50 mg PO BID 07/28/20 04/19/23 montelukast 10 mg tablet 10 mg PO BEDTIME 07/28/20 04/19/23 paroxetine HCl 40 mg tablet 40 mg PO QAM 07/28/20 04/19/23 pregabalin 100 mg capsule 100 mg PO TID 08/01/21 04/19/23 famotidine 40 mg tablet 40 mg PO BEDTIME 09/11/22 04/19/23 umeclidinium 62.5 mcg/actuation ea inhalation 10/18/22 04/19/23 blister powder for inhalation (Incruse Ellipta) zolpidem 5 mg tablet 5 mg PO BEDTIME PRN 02/13/23 04/19/23 cholecalciferol (vitamin D3) 50 50 mcg PO QAM 04/19/23 04/19/23 mcg (2,000 unit) capsule (Vitamin D3) hydroxyzine pamoate 25 mg capsule 25 mg PO BEDTIME PRN 04/19/23 04/19/23 Previous Rx's Medication Instructions Recorded docusate sodium 100 mg capsule 100 mg PO BEDTIME #90 caps 08/21/23 hydrocortisone 2.5 % topical cream 1 appl [place] BID-QID PRN hemorrhoids 08/21/23 with perineal applicator #30 grams (Proctosol HC) pantoprazole 40 mg tablet,delayed 40 mg PO DAILY #90 tabs 08/21/23 release polyethylene glycol 3350 17 17 g PO DAILY #510 grams 08/21/23 gram/dose oral powder (Miralax) Allergies Allergy/AdvReac Type Severity Reaction Status Date / Time ENVIRONMENTAL Allergy Unknown SNEEZING,SO Uncoded 10/24/22 13:47 B [facility] Past Medical History Medical History Hyperlipidemia Diabetes mellitus HTN (hypertension) CAD (coronary artery disease) Surgical History History of cholecystectomy S/P coronary artery stent placement History of tonsillectomy Family History Family History Father Diabetes HTN (hypertension) CVD (cardiovascular disease) Heart failure Mother CVD (cardiovascular disease) Hypercholesteremia Social History Social History Alcohol intake: former Year quit: 1991 Patient Tobacco Use Status: Former Tobacco user Quit Date: 2000 Years Smoked: 20 +/- Smoked in Last 30 Days: No Use of substances other than those prescribed or required for medical reasons: No Advance Directives: No Advance Directives Information Provided: Yes Physical Exam ED Vital Signs: Vital Signs - 24 hr 11/15/23 13:42 11/15/23 14:13 11/15/23 15:40 Temperature 97.9 F 97.8 F 98.5 F Pulse Rate 90 85 76 Respiratory Rate 24 H 20 16 Blood Pressure 136/61 110/55 L 106/53 L Pulse Oximetry 88 L 94 97 Oxygen Delivery Method Room Air Nasal Cannula Nasal Cannula Oxygen Flow Rate 2 11/15/23 15:56 Temperature Pulse Rate 73 Respiratory Rate 13 Blood Pressure Pulse Oximetry Oxygen Delivery Method Oxygen Flow Rate BMI result Body Mass Index 36.1 Medications Administered Generic Name Dose Route Start Last Admin Trade Name Freq PRN Reason Stop Dose Admin Magnesium Sulfate 2 gm in 50 mls @ 50 mls/hr 11/15/23 15:46 11/15/23 16:07 Magnesium Sulfate/H2o IV 11/15/23 16:45 50 mls/hr ONCE ONE Administration Potassium Chloride 10 meq in 100 mls @ 100 mls/hr 11/15/23 16:00 11/15/23 16:07 Potassium Chloride/H20 IV 11/15/23 17:59 100 mls/hr Q1H MELANIE Administration Discontinued Medications Generic Name Dose Route Start Last Admin Trade Name Corey PRN Reason Stop Dose Admin Albuterol Sulfate 2.5 mg/ 0 mg 11/15/23 15:45 11/15/23 15:55 Albuterol/Ipratropium 3 ml INHALE 11/15/23 15:46 1 dose ONCE ONE Administration Methylprednisolone Sodium Succinate 125 mg 11/15/23 15:45 11/15/23 16:07 Methylprednisolone Sod Succ 125 Mg/2 Ml Vial IVPUSH 11/15/23 15:46 125 mg ONCE ONE Administration Potassium Chloride 40 meq 11/15/23 15:46 11/15/23 16:07 Potassium Chloride Packet 20 Meq Packet PO 11/15/23 15:47 40 meq ONCE ONE Administration Medical Decision Making Lab Data 11/15/23 14:36 11/15/23 14:36 Labs: Lab Results 11/15/23 11/15/23 11/15/23 Range/Units 14:36 14:37 16:06 WBC 9.0 (4.8-10.8) X10*3/uL RBC 5.05 (4.20-5.50) X10*6/uL Hgb 13.7 (12.0-16.0) g/dl Hct 41.3 (37.0-47.0) % MCV 81.8 (80.0-98.0) fL MCH 27.1 (27.0-33.0) pg MCHC 33.2 (31.0-35.0) g/dl RDW 13.9 (11.0-16.0) % Plt Count 183 (160-400) X10*3/uL MPV 11.6 (9.4-12.3) fL Immature Gran % (Auto) 0.4 (0.0-0.4) % Neut % (Auto) 66.8 (45-73) % Lymph % (Auto) 17.8 L (20-40) % Hawkins % (Auto) 6.1 (2-11) % Eos % (Auto) 7.9 H (0-4) % Baso % (Auto) 1.0 (0-2) % Lymph # (Auto) 1.6 (1.2-4.9) X10*3/uL Hawkins # (Auto) 0.6 (0.1-1.2) X10*3/uL Eos # (Auto) 0.7 H (0.0-0.4) X10*3/uL Baso # (Auto) 0.1 (0.0-0.2) X10*3/uL Abs Immat Gran (auto) 0.04 H (0.00-0.03) X10*3/uL Absolute Neuts (auto) 6.0 (2.0-8.3) x10*3/uL Absolute Nucleated RBC 0.000 (0.0-0.012) X10*3/uL Nucleated RBC % (auto) 0.0 (0.0-0.2) /100WBC Sodium 145 (135-145) mmol/L Potassium 2.7 L* (3.3-5.1) mmol/L Chloride 102 (96-108) mmol/L Carbon Dioxide 29 (22-29) mmol/L Anion Gap 17 (12-20) BUN 19 H (9-16) mg/dL Creatinine 0.88 (0.5-1.4) mg/dL Estim Creat Clear Calc 64.4 Estimated GFR > 60 Random Glucose 127 H (60-115) mg/dL Lactic Acid 1.7 (0.5-2.0) mmol/L Calcium 9.7 (8.4-10.2) mg/dL Magnesium 1.9 (1.6-2.6) mg/dL Total Bilirubin 0.7 (0.0-1.0) mg/dL AST 21 (5-31) U/L ALT 18 (0-31) U/L Alkaline Phosphatase 132 H (39-117) U/L Troponin I High Sens 11.6 (<3.5-17.0) ng/L Total Protein 7.3 (6.5-8.0) g/dL Albumin 3.9 (3.5-5.0) g/dL Influenza Type A (PCR) NEGATIVE (Negative) Influenza Type B (PCR) NEGATIVE (Negative) RSV RNA Qual (PCR) NEGATIVE (Negative) SARS-CoV-2 RNA (RT-PCR) NEGATIVE (Negative) Discharge Plan Discharge Clinical Impression: Asthma Patient Disposition: Admitted As Inpatient
--- NOTE | 2023-11-15 13:41 | ECG_ITS ---
Test Reason : TACHYCARDIA Blood Pressure : / mmHG Vent. Rate : 087 BPM Atrial Rate : 087 BPM P-R Int : 166 ms QRS Dur : 088 ms QT Int : 380 ms P-R-T Axes : 067 058 073 degrees QTc Int : 457 ms Normal sinus rhythm Normal ECG When compared with ECG of 12-MAR-2013 14:25, No significant change was found Referred By: Lila Martinez Electronically Signed By:TORSTEN RAY MD
--- NOTE | 2023-11-15 13:50 | PC.NURSE ---
Patient noted to be WOB, hypoxic 87 - 89% RA, provider at bedside, 2L O2 applied, tank charger made aware, patient moved into main ED 16.
--- NOTE | 2023-11-15 14:21 | PC.NURSE ---
Patient comes to ED d/t SOB and chest tightness [id number], patient is alert and oriented, respirations even and unlabored, skin color appropriate for ethnicity, wheezing auscultated throughout, junky cough present, patient currently on 2L via n/c. Patient states she has been using her inhaler and updraft treatments with no relief. Patient has edema in BLE that she states is chronic. vss. normal sinus on monitor, tech at bedside performing EKG at this time.
[2023-11-15 14:46] LABS: MANUAL DIFF FLAG NO
[2023-11-15 14:48] LABS: Basophils Absolute Auto 0.1 X10*3/uL (0.0-0.2); Eosinophils Absolute Auto 0.7 X10*3/uL (0.0-0.4); Eosinophils Percent Auto 7.9 % (0-4); Hematocrit 41.3 % (37.0-47.0); Hemoglobin 13.7 g/dl (12.0-16.0); Imm Gran Abs Auto 0.04 X10*3/uL (0.00-0.03); Imm Gran Pct Auto 0.4 % (0.0-0.4); Lymphocytes Absolute Auto 1.6 X10*3/uL (1.2-4.9); Lymphocytes Percent Auto 17.8 % (20-40); Mean Corpuscular HGB Conc 33.2 g/dl (31.0-35.0); Mean Corpuscular Hemoglobin 27.1 pg (27.0-33.0); Mean Corpuscular Volume 81.8 fL (80.0-98.0); Mean Platelet Volume 11.6 fL (9.4-12.3); Monocytes Absolute Auto 0.6 X10*3/uL (0.1-1.2); Monocytes Percent Auto 6.1 % (2-11); Neutrophils Percent Auto 66.8 % (45-73); Platelet Count 183 X10*3/uL (160-400); Red Blood Count 5.05 X10*6/uL (4.20-5.50); Red Cell Distribution Width 13.9 % (11.0-16.0)
[2023-11-15 15:01] LABS: Lactic Acid 1.7 mmol/L (0.5-2.0)
[2023-11-15 15:07] LABS: Troponin-I High Sensitivity 11.6 ng/L (<3.5-17.0)
[2023-11-15 15:32] LABS: Influenza A PCR NEGATIVE (Negative); Influenza B PCR NEGATIVE (Negative); Resp Syncy Virus RNA Qual PCR NEGATIVE (Negative); SARS COV2 PCR INHOUSE NEGATIVE (Negative)
[2023-11-15 15:39] LABS: Alanine Aminotransferase 18 U/L (0-31); Albumin Level 3.9 g/dL (3.5-5.0); Alkaline Phosphatase 132 U/L (39-117); Anion Gap 17 (12-20); Aspartate Amino Transferase 21 U/L (5-31); Bilirubin Total 0.7 mg/dL (0.0-1.0); Blood Urea Nitrogen 19 mg/dL (9-16); Calcium 9.7 mg/dL (8.4-10.2); Carbon Dioxide 29 mmol/L (22-29); Chloride 102 mmol/L (96-108); Creatinine Clr Calc Pharmacy 64.4; Estimated Glomerular Filt Rate > 60; Glucose Random 127 mg/dL (60-115); Potassium 2.7 mmol/L (3.3-5.1); Sodium 145 mmol/L (135-145); Total Protein 7.3 g/dL (6.5-8.0)
--- NOTE | 2023-11-15 15:48 | ED.SOB ---
HPI - SOB/Dyspnea General Chief Complaint: Dyspnea Stated Complaint: SOB,DUONEB GIVEN PER EMS Time Seen by Provider: 11/15/23 13:33 History of Present Illness HPI Narrative: Patient is a 68-year-old female with a history of asthma presents today with shortness of breath for the last 2 days. Getting worse. Decreasing oxygen saturation noted. Patient from home. No history of hospitalization. No history of congestive heart failure. Positive history of bilateral leg swelling in the past positive history of coronary artery disease status post ID approximately 18 years ago positive previous history of smoking quit about 18 years ago patient is vaccinated for COVID positive history of hypertension positive history of diabetes Related Data Home Medications Medication Instructions Recorded Confirmed aspirin 81 mg tablet,delayed 81 mg PO BEDTIME 07/28/20 04/19/23 release atorvastatin 80 mg tablet 80 mg PO BEDTIME 07/28/20 04/19/23 buspirone 7.5 mg tablet 7.5 mg PO TID 07/28/20 04/19/23 calcium carbonate 600 mg-vitamin 1 tab PO BID 07/28/20 04/19/23 D3 5 mcg (200 unit) tablet clonidine HCl 0.1 mg tablet 0.1 mg PO BEDTIME 07/28/20 04/19/23 fluticasone 500 mcg-salmeterol 50 1 ea PO BID 07/28/20 04/19/23 mcg/dose blistr powdr for inhalation fluticasone propionate 50 2 spray intranasal DAILY 07/28/20 04/19/23 mcg/actuation nasal spray,suspension hydrochlorothiazide 25 mg tablet 25 mg PO QAM 07/28/20 04/19/23 lisinopril 40 mg tablet 40 mg PO QAM 07/28/20 04/19/23 metformin 500 mg tablet 500 mg PO BEDTIME 07/28/20 04/19/23 metoprolol tartrate 50 mg tablet 50 mg PO BID 07/28/20 04/19/23 montelukast 10 mg tablet 10 mg PO BEDTIME 07/28/20 04/19/23 paroxetine HCl 40 mg tablet 40 mg PO QAM 07/28/20 04/19/23 pregabalin 100 mg capsule 100 mg PO TID 08/01/21 04/19/23 famotidine 40 mg tablet 40 mg PO BEDTIME 09/11/22 04/19/23 umeclidinium 62.5 mcg/actuation 1 inh inhalation DAILY 10/18/22 04/19/23 blister powder for inhalation (Incruse Ellipta) zolpidem 5 mg tablet 5 mg PO BEDTIME PRN Insomnia 02/13/23 04/19/23 cholecalciferol (vitamin D3) 50 50 mcg PO QAM 04/19/23 04/19/23 mcg (2,000 unit) capsule (Vitamin D3) albuterol sulfate 2.5 mg/3 mL mg inhalation 11/15/23 (0.083 %) solution for nebulization albuterol sulfate 90 mcg/actuation inhalation 11/15/23 aerosol inhaler (Ventolin HFA) hydroxyzine pamoate 50 mg capsule 50 mg PO BEDTIME PRN Insomnia 11/15/23 loratadine 10 mg tablet 10 mg PO DAILY 11/15/23 Previous Rx's Medication Instructions Recorded docusate sodium 100 mg capsule 100 mg PO BEDTIME #90 caps 08/21/23 hydrocortisone 2.5 % topical cream 1 appl [place] BID-QID PRN hemorrhoids 08/21/23 with perineal applicator #30 grams (Proctosol HC) pantoprazole 40 mg tablet,delayed 40 mg PO DAILY #90 tabs 08/21/23 release polyethylene glycol 3350 17 17 g PO DAILY #510 grams 08/21/23 gram/dose oral powder (Miralax) Allergies Allergy/AdvReac Type Severity Reaction Status Date / Time ENVIRONMENTAL Allergy Unknown SNEEZING,SO Uncoded 10/24/22 13:47 B Review of Systems Review of Systems: Positive coughing congestion upper respiratory symptoms Yes all other systems are reviewed and are negative [facility] Past Medical History Medical History Hyperlipidemia Diabetes mellitus HTN (hypertension) CAD (coronary artery disease) Surgical History History of cholecystectomy S/P coronary artery stent placement History of tonsillectomy Family History Family History Father Diabetes HTN (hypertension) CVD (cardiovascular disease) Heart failure Mother CVD (cardiovascular disease) Hypercholesteremia Social History Social History Alcohol intake: former Year quit: 1991 Patient Tobacco Use Status: Former Tobacco user Quit Date: 2000 Smoked: 20 +/- Smoked in Last 30 Days: No Use of substances other than those prescribed or required for medical reasons: No Advance Directives: No Advance Directives Information Provided: Yes Physical Exam Vital Signs: Vital Signs: Last Vital Signs Temp 98.5 F 11/15/23 15:40 Pulse 83 11/15/23 16:52 Resp 13 11/15/23 16:52 BP 106/53 L 11/15/23 15:40 Pulse Ox 97 11/15/23 15:40 O2 Del Method Nasal Cannula 11/15/23 15:40 O2 Flow Rate 2 11/15/23 14:13 BMI result Body Mass Index 36.1 Appearance: Alert. Oriented X3. No acute distress. Eyes: Pupils equal, round and reactive to light. ENT: Pharynx normal. Neck: Normal inspection. Neck supple. No lymph nodes noted. No crepitus CVS: Normal heart rate and rhythm. Pulses normal. Normal S1 and S2 Respiratory: No respiratory distress. Positive diminished breath sounds bilaterally. Positive expiratory wheezing noted. Abdomen: Soft and nontender. No rigidity. No distention. good BS x4 Skin: Skin warm and dry. Normal skin color. Normal skin turgor. Extremities: No lower extremity edema. Neurovascular intact to all extremities. No Lacerations. No Rash Neuro: Oriented X 3. No motor deficit. No sensory deficit. Moving all extermities. No slurred speech Medications Administered Generic Name Dose Route Start Last Admin Trade Name Freq PRN Reason Stop Dose Admin Potassium Chloride 10 meq in 100 mls @ 100 mls/hr 11/15/23 16:00 11/15/23 16:07 Potassium Chloride/H20 IV 11/15/23 17:59 100 mls/hr Q1H MELANIE Administration Discontinued Medications Generic Name Dose Route Start Last Admin Trade Name Freq PRN Reason Stop Dose Admin Albuterol Sulfate 5 mg 11/15/23 16:42 11/15/23 16:51 Albuterol Sulfate (0.083%) 2.5 Mg/3 Ml Vial.Neb INHALE 11/15/23 16:43 5 mg ONCE ONE Administration Albuterol Sulfate 2.5 mg/ 0 mg 11/15/23 15:45 11/15/23 15:55 Albuterol/Ipratropium 3 ml INHALE 11/15/23 15:46 1 dose ONCE ONE Administration Magnesium Sulfate 2 gm in 50 mls @ 50 mls/hr 11/15/23 15:46 11/15/23 16:20 Magnesium Sulfate/H2o IV 11/15/23 16:45 Infused ONCE ONE Infusion Methylprednisolone Sodium Succinate 125 mg 11/15/23 15:45 11/15/23 16:07 Methylprednisolone Sod Succ 125 Mg/2 Ml Vial IVPUSH 11/15/23 15:46 125 mg ONCE ONE Administration Potassium Chloride 40 meq 11/15/23 15:46 11/15/23 16:07 Potassium Chloride Packet 20 Meq Packet PO 11/15/23 15:47 40 meq ONCE ONE Administration Medical Decision Making Medical Decision Making [facility] Narrative: Patient given steroids, magnesium, multiple neb treatment. Still feel short of breath lungs still diminished but is improving. O2 sat is 88% on room air. Will admit patient for further evaluation. My interpretation of patient's chest x-ray was grossly negative there has no evidence of pneumonia. Lactate is 1.7 there is no evidence for sepsis. Case discussed with hospitalist team for admission. White count is normal. Differential Diagnosis Differential Diagnoses: The differential diagnosis associated with the presentation includes Asthma COPD, congestive heart failure, pneumonia Admission/Observation Consideration of admission/observation: Escalation of care including admission/observation considered Consult Healthcare Provider Management of the patient was discussed with: Hospitalist Lab Data [facility] Lab Attestation statement: I reviewed the patient's lab results. 11/15/23 14:36 11/15/23 14:36 Labs: Lab Results 11/15/23 11/15/23 11/15/23 Range/Units 14:36 14:37 16:06 WBC 9.0 (4.8-10.8) X10*3/uL RBC 5.05 (4.20-5.50) X10*6/uL Hgb 13.7 (12.0-16.0) g/dl Hct 41.3 (37.0-47.0) % MCV 81.8 (80.0-98.0) fL MCH 27.1 (27.0-33.0) pg MCHC 33.2 (31.0-35.0) g/dl RDW 13.9 (11.0-16.0) % Plt Count 183 (160-400) X10*3/uL MPV 11.6 (9.4-12.3) fL Immature Gran % (Auto) 0.4 (0.0-0.4) % Neut % (Auto) 66.8 (45-73) % Lymph % (Auto) 17.8 L (20-40) % Lipscomb % (Auto) 6.1 (2-11) % Eos % (Auto) 7.9 H (0-4) % Baso % (Auto) 1.0 (0-2) % Lymph # (Auto) 1.6 (1.2-4.9) X10*3/uL Lipscomb # (Auto) 0.6 (0.1-1.2) X10*3/uL Eos # (Auto) 0.7 H (0.0-0.4) X10*3/uL Baso # (Auto) 0.1 (0.0-0.2) X10*3/uL Abs Immat Gran (auto) 0.04 H (0.00-0.03) X10*3/uL Absolute Neuts (auto) 6.0 (2.0-8.3) x10*3/uL Absolute Nucleated RBC 0.000 (0.0-0.012) X10*3/uL Nucleated RBC % (auto) 0.0 (0.0-0.2) /100WBC Sodium 145 (135-145) mmol/L Potassium 2.7 L* (3.3-5.1) mmol/L Chloride 102 (96-108) mmol/L Carbon Dioxide 29 (22-29) mmol/L Anion Gap 17 (12-20) BUN 19 H (9-16) mg/dL Creatinine 0.88 (0.5-1.4) mg/dL Estim Creat Clear Calc 64.4 Estimated GFR > 60 Random Glucose 127 H (60-115) mg/dL Lactic Acid 1.7 (0.5-2.0) mmol/L Calcium 9.7 (8.4-10.2) mg/dL Magnesium 1.9 (1.6-2.6) mg/dL Total Bilirubin 0.7 (0.0-1.0) mg/dL AST 21 (5-31) U/L ALT 18 (0-31) U/L Alkaline Phosphatase 132 H (39-117) U/L Troponin I High Sens 11.6 (<3.5-17.0) ng/L B-Natriuretic Peptide 18 (<100) pg/mL Total Protein 7.3 (6.5-8.0) g/dL Albumin 3.9 (3.5-5.0) g/dL Influenza Type A (PCR) NEGATIVE (Negative) Influenza Type B (PCR) NEGATIVE (Negative) RSV RNA Qual (PCR) NEGATIVE (Negative) SARS-CoV-2 RNA (RT-PCR) NEGATIVE (Negative) Independent Interpretation I performed an independent interpretation of an: EKG (Patient's EKG showed a sinus rhythm heart rate is 90 AR QRS QTC within normal limits is no acute ST segment elevation noted.) and Plain X-Ray (My interpretation of patient's chest x-ray is grossly negative) Radiology Impression Discussion of test interpretation with radiology: I have reviewed the radiologist's reading. Independent Historian Clinical information obtained from an independent historian. History obtained from or confirmed by: EMS External Record Review External record reviewed: Office record Chronic Conditions History of smoking, hypertension, coronary artery disease Critical Care Time Critical Care Time Critical Care Time: Yes Total Critical Care Time: 40 Attestation: I have personally provided 40 minutes of critical care time exclusive of time spent on separately billable procedures. ?Time includes review of lab data, radiology results, discussion with consultants, and monitoring for potential decompensation. ?Interventions were performed as documented above Discharge Plan Discharge Clinical Impression: Asthma Patient Disposition: Admitted As Inpatient
[2023-11-15] MEDS: Albuterol Sulfate 2.5 MG, Albuterol/Iprat 2.5/0.5MG 3 ML 3 ML INHALE (15:55)
[2023-11-15] MEDS: Potassium Chloride Packet 20 MEQ PACKET 40 MEQ PO (16:07)
[2023-11-15] MEDS: methylPREDNISolone Sod Succ 125 MG/2 ML VIAL IVPUSH (16:07)
[2023-11-15] MEDS: Potassium Chloride/H20 10 MEQ/100 ML PIGGYBACK 100 MEQ IV ×2 (16:07→18:32)
[2023-11-15] MEDS: Magnesium Sulfate/H2O 2 GM/50 ML PIGGYBACK IV (16:07)
[2023-11-15 16:24] LABS: Magnesium 1.9 mg/dL (1.6-2.6)
[2023-11-15] MEDS: Albuterol Sulfate (0.083%) 2.5 MG/3 ML VIAL.NEB 5 MG INHALE (16:51)
--- NOTE | 2023-11-15 17:07 | PC.NURSE ---
Patient unable to tolerate potassium infusion at prescribed rate d/t burning in hand, rate slowed down at this time
[2023-11-15 17:08] LABS: B Type Natriuretic Peptide 18 pg/mL (<100)
--- NOTE | 2023-11-15 17:36 | PHA.MEDREC ---
Pharmacy Consult ? Medication Reconciliation Pharmacy has completed the medication reconciliation. Patient brought in list of medication in medbox. patient confirmed all medication outside of med box. Phoebe Kline, YoanD
--- NOTE | 2023-11-15 17:52 | P.HPHOSP_ITS ---
History of Present Illness Date of Service: 11/15/23 Chief Complaint: dyspnea 68yo F with moderate persistent asthma, DM2, HTN, HLD presenting with 2 weeks of progressive dyspnea unrelieved by continuous use of her albuterol inhaler. No fever. She's been coughing up more sputum as well. No chest pain. In ED, found to be mildly hypoxic with SaO2 88% on room air. CXR clear. Flu/RSV/Covid-19 negative. Potassium markedly low at 2.7. Given IV potassium along with a neb and IV Solu-medrol. Review of Systems 2 Review of Systems: Yes all other systems are reviewed and are negative [facility] Medical History Hyperlipidemia Diabetes mellitus HTN (hypertension) CAD (coronary artery disease) Family History Father Diabetes HTN (hypertension) CVD (cardiovascular disease) Heart failure Mother CVD (cardiovascular disease) Hypercholesteremia Surgical History History of cholecystectomy S/P coronary artery stent placement History of tonsillectomy Social History Alcohol intake: former Year quit: 1991 Patient Tobacco Use Status: Former Tobacco user Quit Date: 2000 Years Smoked: 20 +/- Smoked in Last 30 Days: No Use of substances other than those prescribed or required for medical reasons: No Advance Directives: No Advance Directives Information Provided: Yes Meds Allergies Allergy/AdvReac Type Severity Reaction Status Date / Time ENVIRONMENTAL Allergy Unknown SNEEZING,SO Uncoded 10/24/22 13:47 B Active Medications: Current Medications Albuterol Sulfate (Albuterol Sulfate (0.083%) 2.5 Mg/3 Ml Vial.Neb) 2.5 mg INHALE Q2H PRN PRN Reason: Shortness of Breath/Wheezing Albuterol/Ipratropium (Albuterol/Iprat 2.5/0.5mg 3 Ml Ampul.Neb) 3 ml INHALE RQ4H WHILE AWAKE [facility] Aspirin (Aspirin Enteric Coated 81 Mg Tablet.Dr) 81 mg PO BEDTIME [facility] Atorvastatin Calcium (Atorvastatin Calcium 80 Mg Tablet) 80 mg PO BEDTIME [facility] Buspirone HCl (Buspirone Hcl 5 Mg Tablet) 7.5 mg PO TID [facility] Clonidine HCl (Clonidine Hcl 0.1 Mg Tablet) 0.1 mg PO BEDTIME [facility]; Protocol Dextrose (Dextrose 50 % 25 Gm/50 Ml Syringe) 25 gm IVPUSH Q15M PRN; Protocol PRN Reason: per Hypoglycemia Standing Ord. Glucose (Glucose Gel 15 Gm Gel..Gram.) 15 gm PO Q15M PRN; Protocol PRN Reason: per Hypoglycemia Standing Ord. Potassium Chloride (Potassium Chloride/H20) 10 meq in 100 mls @ 100 mls/hr IV Q1H [facility] Stop: 11/15/23 17:59 Last Admin: 11/15/23 16:07 Dose: 100 mls/hr Insulin Human Lispro (Insulin Lispro 100 Unit/Ml 3 Ml Vial) 0 unit SUBCUT QIDACHS [facility]; Protocol Methylprednisolone Sodium Succinate (Methylprednisolone Sod Succ 40 Mg/Ml Vial) 40 mg IVPUSH Q12H [facility] Non-Formulary Medication (Calcium Carbonate-Vitamin D3) 1 tab PO BID [facility] Vitamin D (Cholecalciferol (Vitamin D3) 25 Mcg Tablet) 50 mcg PO QAM [facility] Home Medications Medication Instructions Recorded Confirmed Last Taken Type aspirin 81 mg tablet,delayed 81 mg PO BEDTIME 07/28/20 11/15/23 11/14/23 History release atorvastatin 80 mg tablet 80 mg PO BEDTIME 07/28/20 11/15/23 11/14/23 History buspirone 7.5 mg tablet 7.5 mg PO TID 07/28/20 11/15/23 11/14/23 History calcium carbonate 600 mg-vitamin 1 tab PO BID 07/28/20 11/15/23 11/14/23 History D3 5 mcg (200 unit) tablet clonidine HCl 0.1 mg tablet 0.1 mg PO BEDTIME 07/28/20 11/15/23 11/14/23 History fluticasone 500 mcg-salmeterol 50 1 ea PO BID 07/28/20 11/15/23 11/14/23 History mcg/dose blistr powdr for inhalation fluticasone propionate 50 2 spray intranasal DAILY PRN 07/28/20 11/15/23 11/14/23 History mcg/actuation nasal Congestion spray,suspension hydrochlorothiazide 25 mg tablet 25 mg PO QAM 07/28/20 11/15/23 11/14/23 History lisinopril 40 mg tablet 40 mg PO QAM 07/28/20 11/15/23 11/14/23 History metformin 500 mg tablet 500 mg PO DAILY@1800 07/28/20 11/15/23 11/14/23 History metoprolol tartrate 50 mg tablet 50 mg PO BID 07/28/20 11/15/23 11/14/23 History montelukast 10 mg tablet 10 mg PO BEDTIME 07/28/20 11/15/23 11/14/23 History paroxetine HCl 40 mg tablet 40 mg PO QAM 07/28/20 11/15/23 11/14/23 History pregabalin 100 mg capsule 100 mg PO TID 08/01/21 11/15/23 11/14/23 History famotidine 40 mg tablet 40 mg PO BEDTIME 09/11/22 11/15/23 11/14/23 History umeclidinium 62.5 mcg/actuation 1 inh inhalation DAILY 10/18/22 11/15/23 11/14/23 History blister powder for inhalation (Incruse Ellipta) zolpidem 5 mg tablet 5 mg PO BEDTIME PRN Insomnia 02/13/23 11/15/23 11/14/23 History cholecalciferol (vitamin D3) 50 50 mcg PO QAM 04/19/23 11/15/23 11/14/23 History mcg (2,000 unit) capsule (Vitamin D3) albuterol sulfate 2.5 mg/3 mL 2.5 mg inhalation Q4H PRN 11/15/23 11/15/23 11/14/23 History (0.083 %) solution for nebulization Shortness Of Breath Or Wheezing albuterol sulfate 90 mcg/actuation 2 puff inhalation Q6H PRN Wheezing 11/15/23 11/15/23 11/14/23 History aerosol inhaler (Ventolin HFA) docusate sodium 100 mg capsule 100 mg PO BEDTIME PRN Constipation 11/15/23 11/15/23 11/14/23 History hydroxyzine pamoate 50 mg capsule 50 mg PO BEDTIME PRN Anxiety 11/15/23 11/15/23 11/14/23 History loratadine 10 mg tablet 10 mg PO DAILY 03/11/15/23 11/14/23 History polyethylene glycol 3350 17 17 g PO DAILY PRN Constipation 11/15/23 11/15/23 11/14/23 History gram/dose oral powder (Miralax) Physical Exam 2 Vital Signs and Narrative: Vital Signs: Last Vital Signs Temp 98.2 F 11/15/23 17:42 Pulse 94 11/15/23 17:42 Resp 20 11/15/23 17:42 BP 108/51 L 11/15/23 17:42 Pulse Ox 97 11/15/23 17:42 O2 Del Method Nasal Cannula 11/15/23 17:42 O2 Flow Rate 2 11/15/23 14:13 BMI result Body Mass Index 36.1 Gen: mild resp distress HEENT: sclera anicteric, moist mucus membranes Neck: supple Lungs: expiratory wheezing, prolonged expiratory phase Heart: regular rate and rhythm, no murmurs Abd: soft, non-tender, non-distended Ext: no edema Skin: warm/well-perfused Neuro: alert and oriented x3, no focal findings Psych: appropriate affect Results Labs 11/15/23 14:36 11/15/23 14:36 Labs: Laboratory Results - last 24 hr 11/15/23 11/15/23 11/15/23 14:36 14:37 16:06 MCV 81.8 MCH 27.1 MCHC 33.2 RDW 13.9 Plt Count 183 MPV 11.6 Immature Gran % (Auto) 0.4 Neut % (Auto) 66.8 Lymph % (Auto) 17.8 L [place] % (Auto) 6.1 Eos % (Auto) 7.9 H Baso % (Auto) 1.0 Lymph # (Auto) 1.6 [place] # (Auto) 0.6 Eos # (Auto) 0.7 H Baso # (Auto) 0.1 Abs Immat Gran (auto) 0.04 H Absolute Neuts (auto) 6.0 Absolute Nucleated RBC 0.000 Nucleated RBC % (auto) 0.0 Anion Gap 17 Estim Creat Clear Calc 64.4 Estimated GFR > 60 Random Glucose 127 H Lactic Acid 1.7 Calcium 9.7 Magnesium 1.9 Total Bilirubin 0.7 AST 21 ALT 18 Alkaline Phosphatase 132 H Troponin I High Sens 11.6 B-Natriuretic Peptide 18 Total Protein 7.3 Albumin 3.9 Influenza Type A (PCR) NEGATIVE Influenza Type B (PCR) NEGATIVE RSV RNA Qual (PCR) NEGATIVE SARS-CoV-2 RNA (RT-PCR) NEGATIVE Imaging Radiologist's Impressions: Impressions Chest X-Ray 11/15/23 14:02 IMPRESSION: Unremarkable chest examination. Assessment and Plan (1) Asthma: Status: Acute Plan 68yo F with moderate persistent asthma, DM2, HTN, HLD presenting with progressive dyspnea and productive cough, admitted for asthma exacerbation and hypokalemia acute asthma exacerbation - admit to M/S, give standing/prn nebs, IV methylprednisolone, continue home controller inhalers + montelukast hypoK - likely albuterol effect; replete IV and recheck acute bronchitis - given duration of symptoms will treat with doxycycline HTN - continue HCTZ + lisinopril + metoprolol HLD - continue atorvastatin + ASA DM2 - hold MTF, give correction-dose lispro GERD - PPI chronic constipation - stool softeners mood disorder - continue buspirone, clonidine, paroxetine, hydroxyzine, zolpidem neuropathy - conitnue pregabalin VTE ppx - LMWH dispo - TBD code - full I anticipate that the patient will stay at least 2 midnights as an inpatient in the hospital due to the above reasons. It is neither reasonable nor safe to care for them in a less acute setting. Quality Stroke Does the patient have a stroke diagnosis?: No VTE Prior VTE?: No VTE Risk Level:: Medical - moderate - high VTE Device Contraindication: N/A - Device Ordered VTE Drug Contraindication: N/A - Med Ordered
[2023-11-15] MEDS: Enoxaparin Sodium 40 MG/0.4 ML SYRINGE SUBCUT (18:32)
[2023-11-15] MEDS: Doxycycline Monohydrate 100 MG CAPSULE PO (18:33)
[2023-11-15 19:00] LABS: Procalcitonin < 0.02 ng/mL
[2023-11-15] MEDS: Albuterol/Iprat 2.5/0.5MG 3 ML AMPUL.NEB INHALE (19:10)
[2023-11-15 21:32] LABS: Glucose, Whole Blood 234 mg/dL (60-115)
[2023-11-15] MEDS: Pregabalin 100 MG CAPSULE PO (22:55)
[2023-11-15] MEDS: Aspirin Enteric Coated 81 MG TABLET.DR PO (22:55)
[2023-11-15] MEDS: Calcium + Vitamin D 250 MG TABLET 500 MG PO (22:55)
[2023-11-15] MEDS: busPIRone HCl 5 MG TABLET 7.5 MG PO (22:56)
[2023-11-15] MEDS: Atorvastatin Calcium 80 MG TABLET PO (22:56)
[2023-11-15] MEDS: cloNIDine HCL 0.1 MG TABLET PO (22:56)
[2023-11-15] MEDS: Metoprolol Tartrate 50 MG TABLET PO (22:56)
[2023-11-15] MEDS: Famotidine 20 MG TABLET 40 MG PO (22:56)
[2023-11-15] MEDS: Montelukast Sodium 10 MG TABLET PO (22:56)
[2023-11-15] MEDS: Insulin Lispro 100 UNIT/ML 3 ML VIAL SUBCUT (23:00)
[2023-11-16] VITALS (8 sets, daily range): BP systolic 93–114; BP diastolic 49–56; PULSE 66–78; RESP 18–20; TEMP 36.1–37.1; O2SAT 96–98
[2023-11-16] MEDS: Omeprazole 20 MG CAPSULE.DR PO (06:39)
[2023-11-16] MEDS: Doxycycline Monohydrate 100 MG CAPSULE PO ×2 (06:39→17:44)
[2023-11-16] MEDS: Benzonatate 100 MG CAPSULE 200 MG PO ×3 (06:40→22:44)
[2023-11-16] MEDS: 0.9 % Sodium Chloride Flush 3 ML SYRINGE IVFLUSH ×4 (06:43→21:20)
[2023-11-16 07:02] LABS: Anion Gap 14 (12-20); Blood Urea Nitrogen 18 mg/dL (9-16); Calcium 9.6 mg/dL (8.4-10.2); Carbon Dioxide 29 mmol/L (22-29); Chloride 106 mmol/L (96-108); Creatinine Clr Calc Pharmacy 58.5; Estimated Glomerular Filt Rate 57; Glucose Random 129 mg/dL (60-115); Magnesium 2.3 mg/dL (1.6-2.6); Potassium 3.7 mmol/L (3.3-5.1); Sodium 145 mmol/L (135-145)
[2023-11-16] MEDS: Albuterol/Iprat 2.5/0.5MG 3 ML AMPUL.NEB INHALE ×3 (07:35→15:52)
[2023-11-16 07:36] LABS: Glucose, Whole Blood 119 mg/dL (60-115)
[2023-11-16] MEDS: lisinopriL 40 MG TABLET PO (07:54)
[2023-11-16] MEDS: Pregabalin 100 MG CAPSULE PO ×3 (07:54→21:11)
[2023-11-16] MEDS: methylPREDNISolone Sod Succ 40 MG/ML VIAL IVPUSH ×2 (07:55→21:09)
[2023-11-16] MEDS: Loratadine 10 MG TABLET PO (07:55)
[2023-11-16] MEDS: Cholecalciferol (Vitamin D3) 25 MCG TABLET 50 MCG PO (07:55)
[2023-11-16] MEDS: PARoxetine HCL 40 MG TABLET PO (07:55)
[2023-11-16] MEDS: busPIRone HCl 5 MG TABLET 7.5 MG PO ×3 (07:55→21:09)
[2023-11-16] MEDS: Metoprolol Tartrate 50 MG TABLET PO ×2 (07:55→21:11)
[2023-11-16] MEDS: Calcium + Vitamin D 250 MG TABLET 500 MG PO (07:55)
[2023-11-16] MEDS: Tiotropium Bromide 2.5 mcg 1 PUFF/2.5 MCG MIST.INHAL 2 PUFF INHALE (08:00)
[2023-11-16] MEDS: Fluticasone/Vilanterol 200/25 BLST.W.DEV 1 PUFF INHALE (08:00)
[2023-11-16 11:16] LABS: Glucose, Whole Blood 189 mg/dL (60-115)
--- NOTE | 2023-11-16 11:49 | HO.PM.IMPN ---
Subjective Subjective Date of Service: 11/16/23 Interval History: wheezing dyspnea improved Review of Systems Review of Systems: Yes all other systems are reviewed and are negative Physical Exam Vital Signs: Vital Signs: Last Vital Signs Temp 97.2 F 11/16/23 10:59 Pulse 66 11/16/23 10:59 Resp 18 11/16/23 10:59 BP 93/49 L 11/16/23 10:59 Pulse Ox 97 11/16/23 10:59 O2 Del Method Nasal Cannula 11/16/23 10:59 O2 Flow Rate 2 11/16/23 10:59 BMI result Body Mass Index 36.1 Gen: short of breath with talking HEENT: sclera anicteric, moist mucus membranes Neck: supple Lungs: expiratory wheezing, prolonged expiration Heart: regular rate and rhythm, no murmurs Abd: soft, non-tender, non-distended Ext: no edema Skin: warm/well-perfused Neuro: alert and oriented x3, no focal findings Psych: appropriate affect Objective Data Active Medications Albuterol Sulfate (Albuterol Sulfate (0.083%) 2.5 Mg/3 Ml Vial.Neb) 2.5 mg INHALE Q2H PRN PRN Reason: Shortness of Breath/Wheezing Albuterol/Ipratropium (Albuterol/Iprat 2.5/0.5mg 3 Ml Ampul.Neb) 3 ml INHALE RQ4H WHILE AWAKE [facility] Last Admin: 11/16/23 11:34 Dose: 3 ml Documented By: HOLLY Aspirin (Aspirin Enteric Coated 81 Mg Tablet.) [address] [facility] Last Admin: 11/15/23 22:55 Dose: 81 mg Documented By: CHANDLER Atorvastatin Calcium (Atorvastatin Calcium 80 Mg Tablet) [address] [facility] Last Admin: 11/15/23 22:56 Dose: 80 mg Documented By: CHANDLER Benzonatate (Benzonatate 100 Mg Capsule) 200 mg PO TID PRN PRN Reason: Cough Last Admin: 11/16/23 06:40 Dose: 200 mg Documented By: CHANDLER Buspirone HCl (Buspirone Hcl 5 Mg Tablet) 7.[address] [facility] Last Admin: 11/16/23 07:55 Dose: 7.5 mg Documented By: HO.GOODMA Calcium Carbonate/Cholecalciferol (Calcium + Vitamin D 250 Mg Tablet) [address] [facility] Last Admin: 11/16/23 07:55 Dose: 500 mg Documented By: LACEY Clonidine HCl (Clonidine Hcl 0.1 Mg Tablet) 0.[address] [facility]; Protocol Last Admin: 11/15/23 22:56 Dose: 0.1 mg Documented By: CHANDLER Dextrose (Dextrose 50 % 25 Gm/50 Ml Syringe) 25 gm IVPUSH Q15M PRN; Protocol PRN Reason: per Hypoglycemia Standing Ord. Docusate Sodium (Docusate Sodium 100 Mg Capsule) 100 mg PO BEDTIME PRN PRN Reason: Constipation Doxycycline Monohydrate (Doxycycline Monohydrate 100 Mg Capsule) [address] [facility] Last Admin: 11/16/23 06:39 Dose: 100 mg Documented By: CHANDLER Enoxaparin Sodium (Enoxaparin Sodium 40 Mg/0.4 Ml Syringe) [address] [facility] Last Admin: 11/15/23 18:32 Dose: 40 mg Documented By: HONEY Famotidine (Famotidine 20 Mg Tablet) [address] [facility] Last Admin: 11/15/23 22:56 Dose: 40 mg Documented By: CHANDLER Fluticasone Propionate (Fluticasone Propionate Nasal 16 Gm [place]) 2 spray NOSTRIL-B DAILY PRN PRN Reason: Congestion Fluticasone/Vilanterol (Fluticasone/Vilanterol 200/25 Blst.W.Dev) [address] [facility] Last Admin: 11/16/23 08:00 Dose: 1 puff Documented By: HOLLY Glucose (Glucose Gel 15 Gm Gel..Gram.) 15 gm PO Q15M PRN; Protocol PRN Reason: per Hypoglycemia Standing Ord. Hydrochlorothiazide (Hydrochlorothiazide 25 Mg Tablet) [address] [facility]; Protocol Last Admin: 11/16/23 08:00 Dose: Not Given Documented By: LACEY Non-Admin Reason: Patient Refused Hydroxyzine HCl (Hydroxyzine Hcl 50 Mg Tablet) 50 mg PO BEDTIME PRN PRN Reason: Anxiety Insulin Human Lispro (Insulin Lispro 100 Unit/Ml 3 Ml Vial) [address] [facility]; Protocol Last Admin: 11/16/23 07:58 Dose: Not Given Documented By: LACEY Non-Admin Reason: No Insulin Coverage Lisinopril (Lisinopril 40 Mg Tablet) [address] [facility]; Protocol Last Admin: 11/16/23 07:54 Dose: 40 mg Documented By: LACEY Loratadine (Loratadine 10 Mg Tablet) [address] [facility] Last Admin: 11/16/23 07:55 Dose: 10 mg Documented By: LACEY Methylprednisolone Sodium Succinate (Methylprednisolone Sod Succ 40 Mg/Ml Vial) [address] [facility] Last Admin: 11/16/23 07:55 Dose: 40 mg Documented By: LACEY Metoprolol Tartrate (Metoprolol Tartrate 50 Mg Tablet) [address] [facility]; Protocol Last Admin: 11/16/23 07:55 Dose: 50 mg Documented By: LACEY Montelukast Sodium (Montelukast Sodium 10 Mg Tablet) [address] [facility] Last Admin: 11/15/23 22:56 Dose: 10 mg Documented By: CHANDLER Omeprazole (Omeprazole 20 Mg Capsule.Dr) 20 mg PO DAILY@0630 [facility] Last Admin: 11/16/23 06:39 Dose: 20 mg Documented By: CHANDLER Ondansetron HCl (Ondansetron Hcl 4 Mg/2 Ml Vial) 4 mg IVPUSH Q8H PRN PRN Reason: Nausea and Vomiting Paroxetine HCl (Paroxetine Hcl 40 Mg Tablet) [address] [facility] Last Admin: 11/16/23 07:55 Dose: 40 mg Documented By: LACEY Polyethylene Glycol (Polyethylene Glycol 3350 17 Gm Powd.Pack) 17 gm PO DAILY PRN PRN Reason: Constipation Pregabalin (Pregabalin 100 Mg Capsule) [address] [facility] Last Admin: 11/16/23 07:54 Dose: 100 mg Documented By: LACEY Sodium Chloride (0.9 % Sodium Chloride Flush 3 Ml Syringe) [address] [facility] Last Admin: 11/16/23 07:59 Dose: 3 ml Documented By: LACEY Tiotropium [place] (Tiotropium [place] 2.5 Mcg 1 Puff/2.5 Mcg Mist.Inhal) [address] [facility] Last Admin: 11/16/23 08:00 Dose: 2 puff Documented By: HOLLY Vitamin D (Cholecalciferol (Vitamin D3) 25 Mcg Tablet) [address] [facility] Last Admin: 11/16/23 07:55 Dose: 50 mcg Documented By: LACEY Zolpidem Tartrate (Zolpidem Tartrate 5 Mg Tablet) 5 mg PO BEDTIME PRN PRN Reason: Insomnia Labs 11/15/23 14:36 11/16/23 06:07 Labs: Laboratory Results - last 24 hr 11/15/23 11/15/23 11/15/23 14:36 14:37 16:06 MCV 81.8 MCH 27.1 MCHC 33.2 RDW 13.9 Plt Count 183 MPV 11.6 Immature Gran % (Auto) 0.4 Neut % (Auto) 66.8 Lymph % (Auto) 17.8 L [place] % (Auto) 6.1 Eos % (Auto) 7.9 H Baso % (Auto) 1.0 Lymph # (Auto) 1.6 [place] # (Auto) 0.6 Eos # (Auto) 0.7 H Baso # (Auto) 0.1 Abs Immat Gran (auto) 0.04 H Absolute Neuts (auto) 6.0 Absolute Nucleated RBC 0.000 Nucleated RBC % (auto) 0.0 Hold Purple Top Anion Gap 17 Estim Creat Clear Calc 64.4 Estimated GFR > 60 POC Glucose Random Glucose 127 H Lactic Acid 1.7 Calcium 9.7 Magnesium 1.9 Total Bilirubin 0.7 AST 21 ALT 18 Alkaline Phosphatase 132 H Troponin I High Sens 11.6 B-Natriuretic Peptide 18 Total Protein 7.3 Albumin 3.9 Procalcitonin < 0.02 Influenza Type A (PCR) NEGATIVE Influenza Type B (PCR) NEGATIVE RSV RNA Qual (PCR) NEGATIVE SARS-CoV-2 RNA (RT-PCR) NEGATIVE 11/15/23 11/16/23 11/16/23 21:08 06:07 06:56 MCV MCH MCHC RDW Plt Count MPV Immature Gran % (Auto) Neut % (Auto) Lymph % (Auto) [place] % (Auto) Eos % (Auto) Baso % (Auto) Lymph # (Auto) [place] # (Auto) Eos # (Auto) Baso # (Auto) Abs Immat Gran (auto) Absolute Neuts (auto) Absolute Nucleated RBC Nucleated RBC % (auto) Hold Purple Top SEE NOTE Anion Gap 14 Estim Creat Clear Calc 58.5 Estimated GFR 57 POC Glucose 234 H 119 H Random Glucose 129 H Lactic Acid Calcium 9.6 Magnesium 2.3 Total Bilirubin AST ALT Alkaline Phosphatase Troponin I High Sens B-Natriuretic Peptide Total Protein Albumin Procalcitonin Influenza Type A (PCR) Influenza Type B (PCR) RSV RNA Qual (PCR) SARS-CoV-2 RNA (RT-PCR) 11/16/23 11:08 MCV MCH MCHC RDW Plt Count MPV Immature Gran % (Auto) Neut % (Auto) Lymph % (Auto) [place] % (Auto) Eos % (Auto) Baso % (Auto) Lymph # (Auto) [place] # (Auto) Eos # (Auto) Baso # (Auto) Abs Immat Gran (auto) Absolute Neuts (auto) Absolute Nucleated RBC Nucleated RBC % (auto) Hold Purple Top Anion Gap Estim Creat Clear Calc Estimated GFR POC Glucose 189 H Random Glucose Lactic Acid Calcium Magnesium Total Bilirubin AST ALT Alkaline Phosphatase Troponin I High Sens B-Natriuretic Peptide Total Protein Albumin Procalcitonin Influenza Type A (PCR) Influenza Type B (PCR) RSV RNA Qual (PCR) SARS-CoV-2 RNA (RT-PCR) Assessment and Plan (1) Asthma: Status: Acute Plan d2 68yo F with moderate persistent asthma, DM2, HTN, HLD presenting with progressive dyspnea and productive cough, admitted for asthma exacerbation and hypokalemia acute hypoxic resp failure - wean O2 as tolerated acute asthma exacerbation - standing/prn nebs, IV methylprednisolone, continue home controller inhalers + montelukast hypoK - likely albuterol effect; repleted acute bronchitis - doxycycline HTN - continue HCTZ + lisinopril + metoprolol HLD - continue atorvastatin + ASA DM2 - hold MTF, give correction-dose lispro GERD - PPI chronic constipation - stool softeners mood disorder - continue buspirone, clonidine, paroxetine, hydroxyzine, zolpidem neuropathy - conitnue pregabalin VTE ppx - LMWH dispo - TBD Total time managing care of this patient today: 35 minutes. Quality Stroke Does the patient have a stroke diagnosis?: No VTE Prior VTE?: No VTE Risk Level:: Medical - moderate - high VTE Device Contraindication: N/A - Device Ordered VTE Drug Contraindication: N/A - Med Ordered
[2023-11-16] MEDS: Insulin Lispro 100 UNIT/ML 3 ML VIAL SUBCUT (12:31)
[2023-11-16 15:10] LABS: Glucose, Whole Blood 125 mg/dL (60-115)
--- NOTE | 2023-11-16 15:13 | MHC.CM.PN ---
IMM 11/16/23 Female 68 DX Asthma exacerbation. She lives by herself. Family members live next door. She uses a cane. She requires assist with ADLs. She is in the process of receiving [employer] thru [facility]. DP home self care. She will arrange for a family member to provide transportation home.
[2023-11-16] MEDS: Enoxaparin Sodium 40 MG/0.4 ML SYRINGE SUBCUT (17:44)
[2023-11-16 20:00] LABS: Glucose, Whole Blood 140 mg/dL (60-115)
[2023-11-16] MEDS: Montelukast Sodium 10 MG TABLET PO (21:09)
[2023-11-16] MEDS: Aspirin Enteric Coated 81 MG TABLET.DR PO (21:11)
[2023-11-16] MEDS: Atorvastatin Calcium 80 MG TABLET PO (21:12)
[2023-11-16] MEDS: cloNIDine HCL 0.1 MG TABLET PO (21:12)
[2023-11-16] MEDS: Famotidine 20 MG TABLET 40 MG PO (21:14)
[2023-11-16] MEDS: Zolpidem Tartrate 5 MG TABLET PO (22:44)
[2023-11-17] VITALS (13 sets, daily range): BP systolic 90–133; BP diastolic 51–65; PULSE 51–76; RESP 18–20; TEMP 36–36.3; O2SAT 90–98
[2023-11-17] MEDS: Doxycycline Monohydrate 100 MG CAPSULE PO ×2 (05:45→17:05)
[2023-11-17] MEDS: Omeprazole 20 MG CAPSULE.DR PO (05:45)
[2023-11-17 07:31] LABS: Glucose, Whole Blood 155 mg/dL (60-115)
[2023-11-17] MEDS: Insulin Lispro 100 UNIT/ML 3 ML VIAL SUBCUT ×2 (08:15→12:07)
[2023-11-17] MEDS: methylPREDNISolone Sod Succ 40 MG/ML VIAL IVPUSH ×2 (08:15→20:27)
[2023-11-17] MEDS: 0.9 % Sodium Chloride Flush 3 ML SYRINGE IVFLUSH ×3 (08:15→20:27)
[2023-11-17] MEDS: Pregabalin 100 MG CAPSULE PO ×3 (08:16→20:27)
[2023-11-17] MEDS: PARoxetine HCL 40 MG TABLET PO (08:16)
[2023-11-17] MEDS: Loratadine 10 MG TABLET PO (08:16)
[2023-11-17] MEDS: lisinopriL 40 MG TABLET PO (08:16)
[2023-11-17] MEDS: busPIRone HCl 5 MG TABLET 7.5 MG PO ×3 (08:16→20:27)
[2023-11-17] MEDS: Calcium + Vitamin D 250 MG TABLET 500 MG PO ×2 (08:16→20:26)
[2023-11-17] MEDS: Cholecalciferol (Vitamin D3) 25 MCG TABLET 50 MCG PO (08:16)
[2023-11-17] MEDS: Metoprolol Tartrate 50 MG TABLET PO ×2 (08:16→20:27)
[2023-11-17] MEDS: hydroCHLOROthiazide 25 MG TABLET PO (08:16)
[2023-11-17] MEDS: Fluticasone/Vilanterol 200/25 BLST.W.DEV 1 PUFF INHALE (08:40)
[2023-11-17] MEDS: Albuterol/Iprat 2.5/0.5MG 3 ML AMPUL.NEB INHALE ×4 (08:40→18:47)
[2023-11-17] MEDS: Tiotropium Bromide 2.5 mcg 1 PUFF/2.5 MCG MIST.INHAL 2 PUFF INHALE (08:40)
--- NOTE | 2023-11-17 08:43 | HO.PM.IMPN ---
Subjective Subjective Date of Service: 11/17/23 Interval History: Trial of oxygen: desaturated to 80s at rest, 70s with ambulation Still wheezing but dyspnea improved No fever Review of Systems Review of Systems: Yes all other systems are reviewed and are negative Physical Exam Vital Signs: Vital Signs: Last Vital Signs Temp 97.4 F 11/17/23 07:45 Pulse 76 11/17/23 08:43 Resp 20 11/17/23 08:43 BP 124/65 11/17/23 07:45 Pulse Ox 96 11/17/23 07:45 O2 Del Method Nasal Cannula 11/17/23 07:45 O2 Flow Rate 2 11/17/23 07:45 BMI result Body Mass Index 36.1 Gen: in no acute distress HEENT: sclera anicteric, moist mucus membranes Neck: supple Lungs: expiratory wheezing and rhonchi Heart: regular rate and rhythm, no murmurs Abd: soft, non-tender, non-distended Ext: no edema Skin: warm/well-perfused Neuro: alert and oriented x3, no focal findings Psych: appropriate affect Objective Data Active Medications Albuterol Sulfate (Albuterol Sulfate (0.083%) 2.5 Mg/3 Ml Vial.Neb) 2.5 mg INHALE Q2H PRN PRN Reason: Shortness of Breath/Wheezing Albuterol/Ipratropium (Albuterol/Iprat 2.5/0.5mg 3 Ml Ampul.Neb) 3 ml INHALE RQ4H WHILE AWAKE [facility] Last Admin: 11/17/23 08:40 Dose: 3 ml Documented By: LAUREEN Aspirin (Aspirin Enteric Coated 81 Mg Tablet.) 81 mg PO BEDTIME [facility] Last Admin: 11/16/23 21:11 Dose: 81 mg Documented By: CHRISTOPHER Atorvastatin Calcium (Atorvastatin Calcium 80 Mg Tablet) 80 mg PO BEDTIME [facility] Last Admin: 11/16/23 21:12 Dose: 80 mg Documented By: CHRISTOPHER Benzonatate (Benzonatate 100 Mg Capsule) 200 mg PO TID PRN PRN Reason: Cough Last Admin: 11/16/23 22:44 Dose: 200 mg Documented By: CHRISTOPHER Buspirone HCl (Buspirone Hcl 5 Mg Tablet) 7.5 mg PO TID [facility] Last Admin: 11/17/23 08:16 Dose: 7.5 mg Documented By: CANDICE Calcium Carbonate/Cholecalciferol (Calcium + Vitamin D 250 Mg Tablet) 500 mg PO BID [facility] Last Admin: 11/17/23 08:16 Dose: 500 mg Documented By: CANDICE Clonidine HCl (Clonidine Hcl 0.1 Mg Tablet) 0.1 mg PO BEDTIME MELANIE; Protocol Last Admin: 11/16/23 21:12 Dose: 0.1 mg Documented By: CHRISTOPHER Dextrose (Dextrose 50 % 25 Gm/50 Ml Syringe) 25 gm IVPUSH Q15M PRN; Protocol PRN Reason: per Hypoglycemia Standing Ord. Docusate Sodium (Docusate Sodium 100 Mg Capsule) 100 mg PO BEDTIME PRN PRN Reason: Constipation Doxycycline Monohydrate (Doxycycline Monohydrate 100 Mg Capsule) 100 mg PO Q12H [facility] Last Admin: 11/17/23 05:45 Dose: 100 mg Documented By: GEOFF Enoxaparin Sodium (Enoxaparin Sodium 40 Mg/0.4 Ml Syringe) 40 mg SUBCUT Q24H [facility] Last Admin: 11/16/23 17:44 Dose: 40 mg Documented By: STELLA Famotidine (Famotidine 20 Mg Tablet) 40 mg PO BEDTIME [facility] Last Admin: 11/16/23 21:14 Dose: 40 mg Documented By: CHRISTOPHER Fluticasone Propionate (Fluticasone Propionate Nasal 16 Gm [place]) 2 spray NOSTRIL-B DAILY PRN PRN Reason: Congestion Fluticasone/Vilanterol (Fluticasone/Vilanterol 200/25 Blst.W.Dev) 1 puff INHALE RDAILY [facility] Last Admin: 11/17/23 08:40 Dose: 1 puff Documented By: LAUREEN Glucose (Glucose Gel 15 Gm Gel..Gram.) 15 gm PO Q15M PRN; Protocol PRN Reason: per Hypoglycemia Standing Ord. Hydrochlorothiazide (Hydrochlorothiazide 25 Mg Tablet) 25 mg PO DAILY [facility]; Protocol Last Admin: 11/17/23 08:16 Dose: 25 mg Documented By: CANDICE Hydroxyzine HCl (Hydroxyzine Hcl 50 Mg Tablet) 50 mg PO BEDTIME PRN PRN Reason: Anxiety Insulin Human Lispro (Insulin Lispro 100 Unit/Ml 3 Ml Vial) 0 unit SUBCUT QIDACHS [facility]; Protocol Last Admin: 11/17/23 08:15 Dose: 2 unit Documented By: CANDICE Lisinopril (Lisinopril 40 Mg Tablet) 40 mg PO DAILY [facility]; Protocol Last Admin: 11/17/23 08:16 Dose: 40 mg Documented By: CANDICE Loratadine (Loratadine 10 Mg Tablet) 10 mg PO DAILY [facility] Last Admin: 11/17/23 08:16 Dose: 10 mg Documented By: CANDICE Methylprednisolone Sodium Succinate (Methylprednisolone Sod Succ 40 Mg/Ml Vial) 40 mg IVPUSH Q12H [facility] Last Admin: 11/17/23 08:15 Dose: 40 mg Documented By: CANDICE Metoprolol Tartrate (Metoprolol Tartrate 50 Mg Tablet) 50 mg PO BID [facility]; Protocol Last Admin: 11/17/23 08:16 Dose: 50 mg Documented By: CANDICE Montelukast Sodium (Montelukast Sodium 10 Mg Tablet) 10 mg PO BEDTIME [facility] Last Admin: 11/16/23 21:09 Dose: 10 mg Documented By: CHRISTOPHER Omeprazole (Omeprazole 20 Mg Capsule.Dr) 20 mg PO DAILY@0630 [facility] Last Admin: 11/17/23 05:45 Dose: 20 mg Documented By: GEOFF Ondansetron HCl (Ondansetron Hcl 4 Mg/2 Ml Vial) 4 mg IVPUSH Q8H PRN PRN Reason: Nausea and Vomiting Paroxetine HCl (Paroxetine Hcl 40 Mg Tablet) 40 mg PO DAILY [facility] Last Admin: 11/17/23 08:16 Dose: 40 mg Documented By: CANDICE Polyethylene Glycol (Polyethylene Glycol 3350 17 Gm Powd.Pack) 17 gm PO DAILY PRN PRN Reason: Constipation Pregabalin (Pregabalin 100 Mg Capsule) 100 mg PO TID [facility] Last Admin: 11/17/23 08:16 Dose: 100 mg Documented By: CANDICE Sodium Chloride (0.9 % Sodium Chloride Flush 3 Ml Syringe) 3 ml IVFLUSH QSHIFT [facility] Last Admin: 11/17/23 08:15 Dose: 3 ml Documented By: CANDICE Tiotropium [place] (Tiotropium [place] 2.5 Mcg 1 Puff/2.5 Mcg Mist.Inhal) 2 puff INHALE RDAILY [facility] Last Admin: 11/17/23 08:40 Dose: 2 puff Documented By: LAUREEN Vitamin D (Cholecalciferol (Vitamin D3) 25 Mcg Tablet) 50 mcg PO DAILY [facility] Last Admin: 11/17/23 08:16 Dose: 50 mcg Documented By: CANDICE Zolpidem Tartrate (Zolpidem Tartrate 5 Mg Tablet) 5 mg PO BEDTIME PRN PRN Reason: Insomnia Last Admin: 11/16/23 22:44 Dose: 5 mg Documented By: CHRISTOPHER Labs 11/15/23 14:36 11/16/23 06:07 Labs: Laboratory Results - last 24 hr 11/16/23 11/16/23 11/16/23 11:08 15:06 19:56 POC Glucose 189 H 125 H 140 H 11/17/23 07:27 POC Glucose 155 H Microbiology Microbiology Results: Microbiology 11/15/23 14:36 Blood Culture - Preliminary Blood - Venous No growth after 24 hours. 11/15/23 14:37 Blood Culture - Preliminary Blood - Venous No growth after 24 hours. Assessment and Plan (1) Asthma: Status: Acute Plan d3 68yo F with moderate persistent asthma, DM2, HTN, HLD presenting with progressive dyspnea and productive cough, admitted for asthma exacerbation and hypokalemia acute hypoxic resp failure - wean O2 as tolerated acute asthma exacerbation - standing/prn nebs, IV methylprednisolone 11/13-, continue home controller inhalers + montelukast hypoK - likely albuterol effect; repleted acute bronchitis - doxycycline 11/13- HTN - continue HCTZ + lisinopril + metoprolol HLD - continue atorvastatin + ASA DM2 - hold MTF, give correction-dose lispro GERD - PPI chronic constipation - stool softeners mood disorder - continue buspirone, clonidine, paroxetine, hydroxyzine, zolpidem neuropathy - conitnue pregabalin VTE ppx - LMWH dispo - likely home with VNA once improved In my clinical judgment, the patient requires continued inpatient hospitalization for the following reasons: hypoxia Total time managing care of this patient today: 35 minutes. Quality Stroke Does the patient have a stroke diagnosis?: No VTE Prior VTE?: No VTE Risk Level:: Medical - moderate - high VTE Device Contraindication: N/A - Device Ordered VTE Drug Contraindication: N/A - Med Ordered
[2023-11-17 11:19] LABS: Glucose, Whole Blood 189 mg/dL (60-115)
[2023-11-17 15:30] LABS: Glucose, Whole Blood 76 mg/dL (60-115)
[2023-11-17] MEDS: Enoxaparin Sodium 40 MG/0.4 ML SYRINGE SUBCUT (17:05)
[2023-11-17] MEDS: cloNIDine HCL 0.1 MG TABLET PO (20:26)
[2023-11-17] MEDS: Aspirin Enteric Coated 81 MG TABLET.DR PO (20:26)
[2023-11-17] MEDS: Montelukast Sodium 10 MG TABLET PO (20:27)
[2023-11-17] MEDS: Famotidine 20 MG TABLET 40 MG PO (20:27)
[2023-11-17] MEDS: Atorvastatin Calcium 80 MG TABLET PO (20:27)
[2023-11-17] MEDS: Benzonatate 100 MG CAPSULE 200 MG PO (20:29)
[2023-11-17 20:44] LABS: Glucose, Whole Blood 129 mg/dL (60-115)
[2023-11-18] VITALS (7 sets, daily range): BP systolic 106–118; BP diastolic 52–65; PULSE 56–78; RESP 18–20; TEMP 36.1–36.4; O2SAT 90–97
[2023-11-18] MEDS: Doxycycline Monohydrate 100 MG CAPSULE PO (06:15)
[2023-11-18] MEDS: Omeprazole 20 MG CAPSULE.DR PO (06:15)
[2023-11-18 07:38] LABS: Glucose, Whole Blood 140 mg/dL (60-115)
[2023-11-18] MEDS: Metoprolol Tartrate 50 MG TABLET PO (08:18)
[2023-11-18] MEDS: Loratadine 10 MG TABLET PO (08:18)
[2023-11-18] MEDS: Cholecalciferol (Vitamin D3) 25 MCG TABLET 50 MCG PO (08:18)
[2023-11-18] MEDS: busPIRone HCl 5 MG TABLET 7.5 MG PO ×2 (08:18→15:15)
[2023-11-18] MEDS: PARoxetine HCL 40 MG TABLET PO (08:18)
[2023-11-18] MEDS: lisinopriL 40 MG TABLET PO (08:18)
[2023-11-18] MEDS: hydroCHLOROthiazide 25 MG TABLET PO (08:18)
[2023-11-18] MEDS: methylPREDNISolone Sod Succ 40 MG/ML VIAL IVPUSH (08:18)
[2023-11-18] MEDS: Calcium + Vitamin D 250 MG TABLET 500 MG PO (08:18)
[2023-11-18] MEDS: Pregabalin 100 MG CAPSULE PO ×2 (08:18→15:15)
[2023-11-18] MEDS: 0.9 % Sodium Chloride Flush 3 ML SYRINGE IVFLUSH ×2 (08:19→15:15)
[2023-11-18] MEDS: Albuterol/Iprat 2.5/0.5MG 3 ML AMPUL.NEB INHALE ×3 (08:35→15:32)
[2023-11-18] MEDS: Fluticasone/Vilanterol 200/25 BLST.W.DEV 1 PUFF INHALE (08:35)
[2023-11-18] MEDS: Tiotropium Bromide 2.5 mcg 1 PUFF/2.5 MCG MIST.INHAL 2 PUFF INHALE (08:35)
--- NOTE | 2023-11-18 09:45 | P.F2F_ITS ---
Service Date Service Date: 11/18/23 Encounter Date of encounter: 11/18/23 Reasons for Services Signs and symptoms assessed: asthma exaerbation Reason for detention: medication management, medication treatment and teach disease management Reason for physical therapy: home safety and mobility, therapeutic exercises, gait/transfer training, assess need for DME, ADL training and energy conservation MD Overseeing Care: Jacqui Seaman Homebound: Leaving the home is medically contraindicated at this time without the asist of a device and/or another person due th the listed conditions above and below. Reason homebound: unsteady gait / fall risk, shortness of breath with minimal effort and weakness related to hospital stay Homebound supporting statement: Pt requires assistance with ADLs Certification: Based on the above findings, I certify that this patient is confined to the home and needs intermittent detention care, physical therapy and/or speech therapy, or continues to need occupational therapy. The patient is under my care, and I have initiated the establishment of the plan of care. The patient will be followed by a physician who will periodically review the plan of care. Time Spent With Patient Time: Total time managing care of this patient today ____ minutes.
--- NOTE | 2023-11-18 09:46 | P.DS_ITS ---
DS: Providers Provider Date of Service: 11/18/23 Date of admission: 11/15/23 17:59 Date of discharge: 11/18/23 Primary care physician: Jacqui Seaman DO DS: Diagnosis Discharge Diagnosis (1) Acute respiratory failure with hypoxia: Status: Acute (2) Acute bronchitis: Status: Acute (3) Moderate persistent asthma with exacerbation: Status: Acute (4) Hypokalemia: Status: Acute DS: Summary Hospital Course Hospital Course: From my admission H+P, 11/15/23: 68yo F with moderate persistent asthma, DM2, HTN, HLD presenting with 2 weeks of progressive dyspnea unrelieved by continuous use of her albuterol inhaler. No fever. She's been coughing up more sputum as well. No chest pain. In ED, found to be mildly hypoxic with SaO2 88% on room air. CXR clear. Flu/RSV/Covid-19 negative. Potassium markedly low at 2.7. Given IV potassium along with a neb and IV Solu-medrol. 68yo F with moderate persistent asthma, DM2, HTN, HLD presenting with progressive dyspnea and productive cough, admitted for asthma exacerbation and hypokalemia with hypoxia. She was admitted to the telemetry unit and treated with doxycycline and methylprednisolone, along with nebulized bronchodilators. Hypokalemia was likely due to albuterol effect and resolved after repletion. Her symptoms improved and she was weaned off of oxygen. She was discharged home with VNA services, doxycycline, and 8-day prednisone taper. Time Attestation Total time managing care of this patient today: 35 mintues. Discharge Coordination Time (in mins): 35 Quality: Safe Use of Opioids Does Pt have an Active Cancer Diagnosis on the Problem List?: No Quality: Stroke Does the patient have a stroke diagnosis?: No Physical Exam Vital Signs: Vital Signs: Last Vital Signs Temp 97.5 F 11/18/23 07:01 Pulse 66 11/18/23 08:35 Resp 18 11/18/23 08:35 BP 118/60 11/18/23 07:01 Pulse Ox 92 11/18/23 07:01 O2 Del Method Nasal Cannula 11/18/23 07:01 O2 Flow Rate 2 11/18/23 07:01 BMI result Body Mass Index 36.1 Gen: in no acute distress HEENT: sclera anicteric, moist mucus membranes Neck: supple Lungs: scattered rhonchi Heart: regular rate and rhythm, no murmurs Abd: soft, non-tender, non-distended Ext: no edema Skin: warm/well-perfused Neuro: alert and oriented x3, no focal findings Psych: appropriate affect DS: Data Data Completed and Pending Completed studies during hospitalization [Text1]: Laboratory Results WBC 9.0 X10*3/uL (4.8-10.8) 11/15/23 14:36 RBC 5.05 X10*6/uL (4.20-5.50) 11/15/23 14:36 Hgb 13.7 g/dl (12.0-16.0) 11/15/23 14:36 Hct 41.3 % (37.0-47.0) 11/15/23 14:36 MCV 81.8 fL (80.0-98.0) 11/15/23 14:36 MCH 27.1 pg (27.0-33.0) 11/15/23 14:36 MCHC 33.2 g/dl (31.0-35.0) 11/15/23 14:36 RDW 13.9 % (11.0-16.0) 11/15/23 14:36 Plt Count 183 X10*3/uL (160-400) 11/15/23 14:36 MPV 11.6 fL (9.4-12.3) 11/15/23 14:36 Immature Gran % (Auto) 0.4 % (0.0-0.4) 11/15/23 14:36 Neut % (Auto) 66.8 % (45-73) 11/15/23 14:36 Lymph % (Auto) 17.8 % (20-40) L 11/15/23 14:36 [place] % (Auto) 6.1 % (2-11) 11/15/23 14:36 Eos % (Auto) 7.9 % (0-4) H 11/15/23 14:36 Baso % (Auto) 1.0 % (0-2) 11/15/23 14:36 Lymph # (Auto) 1.6 X10*3/uL (1.2-4.9) 11/15/23 14:36 [place] # (Auto) 0.6 X10*3/uL (0.1-1.2) 11/15/23 14:36 Eos # (Auto) 0.7 X10*3/uL (0.0-0.4) H 11/15/23 14:36 Baso # (Auto) 0.1 X10*3/uL (0.0-0.2) 11/15/23 14:36 Abs Immat Gran (auto) 0.04 X10*3/uL (0.00-0.03) H 11/15/23 14:36 Absolute Neuts (auto) 6.0 x10*3/uL (2.0-8.3) 11/15/23 14:36 Absolute Nucleated RBC 0.000 X10*3/uL (0.0-0.012) 11/15/23 14:36 Nucleated RBC % (auto) 0.0 /100WBC (0.0-0.2) 11/15/23 14:36 Hold Purple Top SEE NOTE 11/16/23 06:07 Sodium 145 mmol/L (135-145) 11/16/23 06:07 Potassium 3.7 mmol/L (3.3-5.1) D 11/16/23 06:07 Chloride 106 mmol/L (96-108) 11/16/23 06:07 Carbon Dioxide 29 mmol/L (22-29) 11/16/23 06:07 Anion Gap 14 (12-20) 11/16/23 06:07 BUN 18 mg/dL (9-16) H 11/16/23 06:07 Creatinine 0.97 mg/dL (0.5-1.4) 11/16/23 06:07 Estim Creat Clear Calc 58.5 11/16/23 06:07 Estimated GFR 57 11/16/23 06:07 POC Glucose 140 mg/dL (60-115) H 11/18/23 07:26 Random Glucose 129 mg/dL (60-115) H 11/16/23 06:07 Lactic Acid 1.7 mmol/L (0.5-2.0) 11/15/23 14:36 Calcium 9.6 mg/dL (8.4-10.2) 11/16/23 06:07 Magnesium 2.3 mg/dL (1.6-2.6) 11/16/23 06:07 Total Bilirubin 0.7 mg/dL (0.0-1.0) 11/15/23 14:36 AST 21 U/L (5-31) 11/15/23 14:36 ALT 18 U/L (0-31) 11/15/23 14:36 Alkaline Phosphatase 132 U/L (39-117) H 11/15/23 14:36 Troponin I High Sens 11.6 ng/L (<3.5-17.0) 11/15/23 14:37 B-Natriuretic Peptide 18 pg/mL (<100) 11/15/23 14:36 Total Protein 7.3 g/dL (6.5-8.0) 11/15/23 14:36 Albumin 3.9 g/dL (3.5-5.0) 11/15/23 14:36 Procalcitonin < 0.02 ng/mL 11/15/23 16:06 Influenza Type A (PCR) NEGATIVE (Negative) 11/15/23 14:37 Influenza Type B (PCR) NEGATIVE (Negative) 11/15/23 14:37 RSV RNA Qual (PCR) NEGATIVE (Negative) 11/15/23 14:37 SARS-CoV-2 RNA (RT-PCR) NEGATIVE (Negative) 11/15/23 14:37 Impressions Chest X-Ray 11/15/23 14:02 IMPRESSION: Unremarkable chest examination. Discharge Plan Discharge Anticipated Discharge Date/Time: 11/18/23 09:39 Patient Disposition: Home Health Service Discharge Diagnosis: hypoxia asthma exacerbation Referrals: Jacqui Seaman DO [Primary Care Provider] - 1 Week Discharge Medications: New doxycycline monohydrate 100 mg Capsule 100 mg PO Q12H Qty: 4 0RF prednisone 10 mg tablet See Rx Instructions .ROUTE .COMPLEX Qty: 20 0RF Rx Instructions: 40 mg daily x 2 days, then 30 mg daily x 2 days, then 20 mg daily x 2 days, then 10 mg daily x 2 days Continued albuterol sulfate 2.5 mg /3 mL (0.083 %) solution for nebulization 2.5 mg inhalation Q4H PRN (Reason: Shortness Of Breath Or Wheezing) hydroxyzine pamoate 50 mg capsule 50 mg PO BEDTIME PRN (Reason: Anxiety) albuterol sulfate [Ventolin HFA] 90 mcg/actuation HFA aerosol inhaler 2 puff inhalation Q6H PRN (Reason: Wheezing) loratadine 10 mg tablet 10 mg PO DAILY docusate sodium 100 mg capsule 100 mg PO BEDTIME PRN (Reason: Constipation) polyethylene glycol 3350 [Miralax] 17 gram/dose powder 17 g PO DAILY PRN (Reason: Constipation) pregabalin 100 mg capsule 100 mg PO TID buspirone 7.5 mg tablet 7.5 mg PO TID fluticasone propionate 50 mcg/actuation spray,suspension 2 spray intranasal DAILY PRN (Reason: Congestion) lisinopril 40 mg tablet 40 mg PO QAM paroxetine HCl 40 mg tablet 40 mg PO QAM hydrochlorothiazide 25 mg tablet 25 mg PO QAM montelukast 10 mg tablet 10 mg PO BEDTIME metoprolol tartrate 50 mg tablet 50 mg PO BID fluticasone propion-salmeterol 500-50 mcg/dose blister with device 1 ea PO BID aspirin 81 mg tablet,delayed release (DR/EC) 81 mg PO BEDTIME calcium carbonate-vitamin D3 600 mg(1,500mg) -200 unit tablet 1 tab PO BID clonidine HCl 0.1 mg tablet 0.1 mg PO BEDTIME atorvastatin 80 mg tablet 80 mg PO BEDTIME metformin 500 mg tablet 500 mg PO DAILY@1800 famotidine 40 mg tablet 40 mg PO BEDTIME Incruse Ellipta 62.5 mcg/actuation blister with device 1 inh inhalation DAILY cholecalciferol (vitamin D3) [Vitamin D3] 50 mcg (2,000 unit) capsule 50 mcg PO QAM zolpidem 5 mg tablet 5 mg PO BEDTIME PRN (Reason: Insomnia) pantoprazole 40 mg tablet,delayed release (DR/EC) 40 mg PO DAILY Qty: 90 2RF Rx Instructions: take one tablet half an hour before breakfast Discharge Orders: Discharge Order (Routine); Ordered 11/18/23 Ordered By: Iris Roman Diet: Diabetic diet Activity on Discharge: As tolerated Stand Alone Forms: Patient Portal Discharge page Care Plan Goals: respiratory health Health Concerns: asthma exacerbation bronchitis Plan of Treatment: doxycycline 100 mg twice daily for 2 days prednisone taper: 40 mg daily x 2 days, then 30 mg daily x 2 days, then 20 mg daily x 2 days, then 10 mg daily x 2 days Please follow up with your primary care doctor within 1 week. Return to the [facility]spital if you experience recurrent or worsening symptoms. Assessment: See Discharge Summary.
--- NOTE | 2023-11-18 10:35 | MHC.CM.PN ---
Addendum entered by Winnie Kc RN 11/18/23 12:46: [facility] to provide sn/pt for pt w/soc tomorrow 11/18, pt has called dtr for transport Original Note: pt medically cleared for dc home w/new vna for sn/pt, cm working on securing vna, pt will arrange transportation
[2023-11-18 11:36] LABS: Glucose, Whole Blood 198 mg/dL (60-115)
[2023-11-18] MEDS: Insulin Lispro 100 UNIT/ML 3 ML VIAL SUBCUT (12:15)
--- NOTE | 2023-11-18 18:55 | P.CDIM_ITS ---
PROVIDER RESPONSE TEXT: To clarify, the appropriate diagnosis supported by the clinical indicators: Acute respiratory failure: hypoxic QUERY TEXT: PHYSICIAN'S DOCUMENTATION REQUEST Date of Query: 11/16/2023 10:12 AM EDT Patient Name: Malia Marrero Admit Date: 11/15/2023 Dear Iris Roman, A review of the medical record indicates additional documentation may be needed. Please review below and update the documentation accordingly. Clinical Indicators: Per H&P 11/15/23: mild respiratory distress, progressive dyspnea and productive cough In ED, found to be mildly hypoxic with SaO2 88% RA treated with neb and IV Solu-medrol, 2 L nasal cannula respiratory rate 28 Please clarify which of the following accurately represents the patient's respiratory status: Acute respiratory failure Please specify if Hypoxic, Hypercapnic, or Hypoxic and hypercapnic Acute on chronic respiratory failure Please specify if Hypoxic, Hypercapnic, or Hypoxic and hypercapnic Chronic respiratory failure Please specify if Hypoxic, Hypercapnic, or Hypoxic and hypercapnic Acute respiratory distress Hypoxia Other (explain) Clinically unable to determine (explain) Thank you, Bessy Contreras RN Use of terms such as suspected, likely, concern for, or probable (associated with a specific diagnosi s that is being evaluated, monitored, or treated as if it exists) are acceptable and can be coded in the inpatient se tting, when documented at the time of discharge. Please use your independent medical judgment in providing your response. THIS QUERY IS PART OF THE PERMANENT MEDICAL RECORD
== END 2023-11-18 16:10 | disposition home health service (06) | DRG 202 ==
LOC: HO.ED 16:42 → HO.EDOVER 18:05 → HO.IMC 19:36
PROVIDERS: Registered Nurse Emergency; Admitting Provider Family Medicine; Emergency Provider Emergency Medicine Emergency Medical Services; PCP Family Medicine; Visit Provider Family Medicine
DX: J45.41 Moderate persistent asthma with (acute) exacerbation (principal); J96.01 Acute respiratory failure with hypoxia; J20.9 Acute bronchitis, unspecified; E78.5 Hyperlipidemia, unspecified; E11.40 Type 2 diabetes mellitus with diabetic neuropathy, unspecified; K21.9 Gastro-esophageal reflux disease without esophagitis; K59.09 Other constipation; E87.6 Hypokalemia; I25.10 Atherosclerotic heart disease of native coronary artery without angina pectoris; Z95.1 Presence of aortocoronary bypass graft; Z20.822 Contact with and (suspected) exposure to COVID-19; Z79.82 Long term (current) use of aspirin; Z79.51 Long term (current) use of inhaled steroids; Z79.84 Long term (current) use of oral hypoglycemic drugs; Z79.899 Other long term (current) drug therapy
CPT/HCPCS: 0241U; 36415; 71046; 80048; 80053; 82947; 83605; 83735; 83880; 84145; 84484; 85025; 87040; 93005; 94640; 99285; J1650; J2920; J2930; J3475; J3480

== ENCOUNTER → 2023-11-15 13:41 | Outpatient (BNV) | payer OTHER, SELFPAY | PROVIDERS: Admitting Provider Family Medicine; Emergency Provider Emergency Medicine Emergency Medical Services; PCP Family Medicine; Visit Provider Internal Medicine Cardiovascular Disease | DX: R00.0 Tachycardia, unspecified (principal) | CPT/HCPCS: 93010 ==

== ENCOUNTER → 2023-11-15 14:23 | Outpatient (BNV) | payer OTHER, SELFPAY | PROVIDERS: Emergency Provider Emergency Medicine Emergency Medical Services; PCP Family Medicine; Visit Provider Family Medicine | DX: J96.01 Acute respiratory failure with hypoxia (principal); J45.41 Moderate persistent asthma with (acute) exacerbation; J20.9 Acute bronchitis, unspecified; E87.6 Hypokalemia | CPT/HCPCS: 99223; 99232; 99239; G0180 ==

== ENCOUNTER 2023-12-12 10:55 | Outpatient (REF) | payer OTHER, SELFPAY ==
--- NOTE | ~2023-12-12 | US_ITS ---
EXAMINATION: US ABDOMEN COMPLETE CLINICAL INFORMATION: Follow up fatty liver. COMPARISON: Ultrasound abdomen complete 04/01/2020. TECHNIQUE: Real-time imaging of the abdominal viscera. FINDINGS: PANCREAS: Normal. ABDOMINAL AORTA: The proximal, mid, and distal segments are normal in caliber. INFERIOR VENA CAVA: Visualized portions are normal. LIVER: The liver is mildly enlarged measuring 18 cm. The liver contour is normal. There is diffuse increased liver parenchymal echogenicity, consistent with hepatic steatosis. No focal hepatic lesion. There is no intrahepatic biliary duct dilatation seen. GALLBLADDER: Surgically absent. COMMON BILE DUCT: Mildly dilated measuring 6-7 mm, similar to the prior study. RIGHT KIDNEY: Normal. No hydronephrosis. No renal calculi or focal parenchymal lesions. The kidney measures 9.53 cm in maximum dimension. LEFT KIDNEY: Normal. No hydronephrosis. No renal calculi or focal parenchymal lesions. The kidney measures 8.33 cm in maximum dimension. SPLEEN: Normal. The spleen measures 7.38 cm in maximum dimension. FREE FLUID: None. US/US abdomen complete IMPRESSION: Hepatic steatosis. Stable mildly dilated common bile duct measuring 6-7 mm in diameter. No intrahepatic biliary ductal dilatation.
== END 2023-12-12 10:56 | disposition home or self-care (01) ==
LOC: HO.US 10:55
PROVIDERS: PCP Family Medicine; Visit Provider Family Medicine
DX: K76.0 Fatty (change of) liver, not elsewhere classified (principal); Z90.49 Acquired absence of other specified parts of digestive tract
CPT/HCPCS: 76700

== ENCOUNTER 2024-01-03 12:53 | Outpatient (REF) | payer OTHER, SELFPAY ==
--- NOTE | ~2024-01-03 | MM_ITS ---
EXAMINATION: MM SCREENING DIGITAL BREAST TOMOSYNTHESIS, BILATERAL CLINICAL INFORMATION: Screening. Asymptomatic. COMPARISON: Mammography: This study is compared with prior exams dating back to 2015. TECHNIQUE: Digital breast tomosynthesis is performed in both the craniocaudal and mediolateral oblique views along with computer-aided detection (CAD). Synthesized 2D images are generated from the tomosynthesis. FINDINGS: There are scattered areas of fibroglandular density (ACR BI-RADS breast composition Category b). There are no significant masses, abnormal calcifications, or other abnormalities. MM/MM tomosynthesis screening BI IMPRESSION: No mammographic evidence of malignancy. ASSESSMENT: BI-RADS BI-RADS 1 - Negative RECOMMENDATION: Routine annual mammography screening. 1 year F/U This examination should not preclude the clinical evaluation of a suspicious palpable abnormality. This patient's information was entered into a reminder system with a target due date for their next mammogram.
== END 2024-01-03 12:54 | disposition home or self-care (01) ==
LOC: HO.MAMMO 12:53
PROVIDERS: PCP Family Medicine; Visit Provider Family Medicine
DX: Z12.31 Encounter for screening mammogram for malignant neoplasm of breast (principal)
CPT/HCPCS: 77063; 77067

== ENCOUNTER → 2024-01-03 13:15 | Outpatient (BNV) | payer OTHER, SELFPAY | PROVIDERS: PCP Family Medicine; Visit Provider Radiology Diagnostic Radiology | DX: Z12.31 Encounter for screening mammogram for malignant neoplasm of breast (principal) | CPT/HCPCS: 77063; 77067 ==

== ENCOUNTER 2024-02-05 22:42 | Emergency (ER) | payer OTHER, SELFPAY ==
--- NOTE | ~2024-02-05 | XR_ITS ---
EXAMINATION: XR CHEST CLINICAL INFORMATION: Asthma, shortness of breath COMPARISON: 11/15/2023 TECHNIQUE: Frontal view of the chest was obtained. FINDINGS: Lung volumes are symmetric. No focal consolidation is seen. No evidence of pneumothorax, pleural effusion, or pulmonary edema. The cardiomediastinal contour is unremarkable. No acute osseous findings are seen. XR/XR chest 1V IMPRESSION: No acute cardiopulmonary findings.
[2024-02-05 23:09] VITALS: BP 126/66; PULSE 74; RESP 15; O2SAT 92; BMI 31.1
[2024-02-05 23:10] VITALS: BP 126/66; PULSE 78; RESP 16; O2SAT 92
--- NOTE | 2024-02-05 23:11 | ECG_ITS ---
Test Reason : SOB Blood Pressure : / mmHG Vent. Rate : 068 BPM Atrial Rate : 068 BPM P-R Int : 168 ms QRS Dur : 088 ms QT Int : 422 ms P-R-T Axes : 063 056 058 degrees QTc Int : 448 ms Normal sinus rhythm Normal ECG When compared to the previous EKG of No significant changes seen Referred By: Analy Sesay Electronically Signed By:TORSTEN RAY MD
--- NOTE | 2024-02-05 23:31 | ED.ASTHMA ---
HPI - Asthma General Chief Complaint: Asthma Stated Complaint: SOB Time Seen by Provider: 02/05/24 22:51 Source: patient Mode of arrival: ambulatory Limitations: no limitations History of Present Illness ED Provider: Dr. Analy Sesay HPI Narrative: Patient comes to emergency room complaining of Related Data Home Medications ?Medication ?Instructions ?Recorded ?Confirmed aspirin 81 mg tablet,delayed 81 mg PO BEDTIME 07/28/20 11/15/23 release atorvastatin 80 mg tablet 80 mg PO BEDTIME 07/28/20 11/15/23 buspirone 7.5 mg tablet 7.5 mg PO TID 07/28/20 11/15/23 calcium carbonate 600 mg-vitamin 1 tab PO BID 07/28/20 11/15/23 D3 5 mcg (200 unit) tablet clonidine HCl 0.1 mg tablet 0.1 mg PO BEDTIME 07/28/20 11/15/23 fluticasone 500 mcg-salmeterol 50 1 ea PO BID 07/28/20 11/15/23 mcg/dose blistr powdr for inhalation fluticasone propionate 50 2 spray intranasal DAILY PRN 07/28/20 11/15/23 mcg/actuation nasal Congestion spray,suspension hydrochlorothiazide 25 mg tablet 25 mg PO QAM 07/28/20 11/15/23 lisinopril 40 mg tablet 40 mg PO QAM 07/28/20 11/15/23 metformin 500 mg tablet 500 mg PO DAILY@1800 07/28/20 11/15/23 metoprolol tartrate 50 mg tablet 50 mg PO BID 07/28/20 11/15/23 montelukast 10 mg tablet 10 mg PO BEDTIME 07/28/20 11/15/23 paroxetine HCl 40 mg tablet 40 mg PO QAM 07/28/20 11/15/23 pregabalin 100 mg capsule 100 mg PO TID 08/01/21 11/15/23 famotidine 40 mg tablet 40 mg PO BEDTIME 09/11/22 11/15/23 umeclidinium 62.5 mcg/actuation 1 inh inhalation DAILY 10/18/22 11/15/23 blister powder for inhalation (Incruse Ellipta) zolpidem 5 mg tablet 5 mg PO BEDTIME PRN Insomnia 02/13/23 11/15/23 cholecalciferol (vitamin D3) 50 50 mcg PO QAM 04/19/23 11/15/23 mcg (2,000 unit) capsule (Vitamin D3) albuterol sulfate 2.5 mg/3 mL 2.5 mg inhalation Q4H PRN 11/15/23 11/15/23 (0.083 %) solution for nebulization Shortness Of Breath Or Wheezing albuterol sulfate 90 mcg/actuation 2 puff inhalation Q6H PRN Wheezing 11/15/23 11/15/23 aerosol inhaler (Ventolin HFA) docusate sodium 100 mg capsule 100 mg PO BEDTIME PRN Constipation 11/15/23 11/15/23 hydroxyzine pamoate 50 mg capsule 50 mg PO BEDTIME PRN Anxiety 11/15/23 11/15/23 loratadine 10 mg tablet 10 mg PO DAILY 11/15/23 11/15/23 polyethylene glycol 3350 17 17 g PO DAILY PRN Constipation 11/15/23 11/15/23 gram/dose oral powder (Miralax) Previous Rx's ?Medication ?Instructions ?Recorded pantoprazole 40 mg tablet,delayed 40 mg PO DAILY #90 tabs 08/21/23 release doxycycline monohydrate 100 mg 100 mg PO Q12H #4 caps 11/18/23 capsule prednisone 10 mg tablet See Rx Instructions .Route 11/18/23 .COMPLEX #20 tabs albuterol sulfate 90 mcg/actuation 2 puff inhalation Q4-6H PRN 02/06/24 aerosol inhaler shortness of breath or wheezing #8.5 grams furosemide 40 mg tablet (Lasix) 40 mg PO DAILY #4 tabs 02/06/24 guaifenesin 400 mg tablet 400 mg PO Q4H PRN cough #14 tabs 02/06/24 prednisone 50 mg tablet 50 mg PO DAILY #5 tabs 02/06/24 Allergies Allergy/AdvReac Type Severity Reaction Status Date / Time ENVIRONMENTAL Allergy Unknown SNEEZING,SO Uncoded 02/05/24 23:11 B [facility] [place] Past Medical History Medical History Hyperlipidemia Diabetes mellitus HTN (hypertension) CAD (coronary artery disease) Surgical History History of cholecystectomy S/P coronary artery stent placement History of tonsillectomy Family History Family History Father Diabetes HTN (hypertension) CVD (cardiovascular disease) Heart failure Mother CVD (cardiovascular disease) Hypercholesteremia Social History Social History Household Members: Family Housing: House Do you presently have visiting nurse or other home services: No Alcohol intake: former Year quit: 1991 Patient Tobacco Use Status: Former Tobacco user Years Smoked: 20 +/- Smoked in Last 30 Days: No Use of substances other than those prescribed or required for medical reasons: No Advance Directives: No Advance Directives Information Provided: Yes Do you have a plan to hurt others: No Plan service: No Physical Exam Vital Signs: Vital Signs: Last Vital Signs Pulse 70 02/06/24 01:10 Resp 19 02/06/24 01:10 BP 126/66 02/05/24 23:10 Pulse Ox 92 02/05/24 23:10 O2 Del Method Room Air 02/05/24 23:10 BMI result Body Mass Index 31.1 Medications Administered Discontinued Medications Generic Name Dose Route Start Last Admin Trade Name Freq PRN Reason Stop Dose Admin Albuterol Sulfate 2.5 mg/ 5 mg 02/05/24 23:48 02/05/24 23:57 Albuterol Sulfate 2.5 mg INHALE 02/05/24 23:49 5 mg ONCE ONE Administration Albuterol Sulfate 5 mg/ 0 mg 02/06/24 01:04 02/06/24 01:09 Albuterol/Ipratropium 3 ml INHALE 02/06/24 01:05 7.5 each ONCE ONE Administration Magnesium Sulfate 2 gm in 50 mls @ 25 mls/hr 02/05/24 23:27 02/05/24 23:47 Magnesium Sulfate/H2o IV 02/06/24 01:26 25 mls/hr ONCE ONE Administration Methylprednisolone Sodium Succinate 125 mg 02/05/24 23:27 02/05/24 23:47 Methylprednisolone Sod Succ 125 Mg/2 Ml Vial IVPUSH 02/05/24 23:28 125 mg ONCE ONE Administration Medical Decision Making Medical Decision Making MDM Narrative: -my interpretation of labs, normal hematology, chemistry shows a bit elevated sodium, otherwise unremarkable labs, troponin and BNP within normal limits -patient received a nebulization treatment, albuterol, magnesium, patient's oxygen saturation 100% but still wheezing. Patient will receive a 2nd nebulization treatment. -my interpretation of chest x-ray: No edema or infiltrates Patient's BNP negative Patient has been evaluated for lower extremity by her primary care physician. Patient not on any medication or diuretic yet. Patient has an appointment pending with vascular surgery for possible venous insufficiency -wells criteria score for DVT (-2) -patient was ambulated in the emergency room, oxygen saturation 90% and above. Patient states that she feels much better -lung exam: No wheezing, patient does have productive cough, no crackles, good air movement Differential Diagnosis Differential Diagnoses: The differential diagnosis associated with the presentation includes (Asthma, viral syndrome) Admission/Observation Consideration of admission/observation: Escalation of care including admission/observation considered (Patient requiring multiple nebulization treatments, admission/observation considered) Lab Data MDM Lab Attestation statement: I reviewed the patient's lab results. 02/05/24 23:38 02/05/24 23:38 Labs: Lab Results 02/05/24 Range/Units 23:38 WBC 9.0 (4.8-10.8) X10*3/uL RBC 4.67 (4.20-5.50) X10*6/uL Hgb 13.1 (12.0-16.0) g/dl Hct 39.4 (37.0-47.0) % MCV 84.4 (80.0-98.0) fL MCH 28.1 (27.0-33.0) pg MCHC 33.2 (31.0-35.0) g/dl RDW 14.8 (11.0-16.0) % Plt Count 198 (160-400) X10*3/uL MPV 11.4 (9.4-12.3) fL Immature Gran % (Auto) 0.2 (0.0-0.4) % Neut % (Auto) 42.5 L (45-73) % Lymph % (Auto) 32.8 (20-40) % [place] % (Auto) 9.9 (2-11) % Eos % (Auto) 13.2 H (0-4) % Baso % (Auto) 1.4 (0-2) % Lymph # (Auto) 3.0 (1.2-4.9) X10*3/uL [place] # (Auto) 0.9 (0.1-1.2) X10*3/uL Eos # (Auto) 1.2 H (0.0-0.4) X10*3/uL Baso # (Auto) 0.1 (0.0-0.2) X10*3/uL Abs Immat Gran (auto) 0.02 (0.00-0.03) X10*3/uL Absolute Neuts (auto) 3.8 (2.0-8.3) x10*3/uL Absolute Nucleated RBC 0.000 (0.0-0.012) X10*3/uL Nucleated RBC % (auto) 0.0 (0.0-0.2) /100WBC Sodium 148 H (135-145) mmol/L Potassium 3.3 (3.3-5.1) mmol/L Chloride 101 (96-108) mmol/L Carbon Dioxide 33 H (22-29) mmol/L Anion Gap 17 (12-20) BUN 23 H (9-16) mg/dL Creatinine 0.87 (0.5-1.4) mg/dL Estim Creat Clear Calc 58.0 Estimated GFR > 60 Random Glucose 92 (60-115) mg/dL Calcium 9.4 (8.4-10.2) mg/dL Total Bilirubin 0.4 (0.0-1.0) mg/dL Direct Bilirubin 0.2 (0.0-0.5) mg/dL AST 23 (5-31) U/L ALT 20 (0-31) U/L Alkaline Phosphatase 117 (39-117) U/L Troponin I High Sens < 2.7 D (<3.5-17.0) ng/L B-Natriuretic Peptide 22 (<100) pg/mL Total Protein 6.8 (6.5-8.0) g/dL Albumin 3.9 (3.5-5.0) g/dL COVID-19 (JOSE L) Negative (Negative) COVID-19 Clin Com See Note Independent Interpretation I performed an independent interpretation of an: Plain X-Ray Radiology Impression Discussion of test interpretation with radiology: I have reviewed the radiologist's reading. Radiologist Impression: FINDINGS: Lung volumes are symmetric. No focal consolidation is seen. No evidence of pneumothorax, pleural effusion, or pulmonary edema. The cardiomediastinal contour is unremarkable. No acute osseous findings are seen. XR/XR chest 1V IMPRESSION: No acute cardiopulmonary findings Scores Wells DVT Alternative Dx as likely as or more likely than DVT: -2 Score: -2 2-tier Risk: unlikely risk (5%) 3-tier Risk: low risk (3%) Critical Care Time Critical Care Time Critical Care Time: Yes Total Critical Care Time: 45 Attestation: I have personally provided critical care time. Time includes review of lab data, radiology results, discussion with consultants, and monitoring for potential decompensation. Intervention performed as documented. Discharge Plan Discharge Clinical Impression: Asthma, Edema of both lower legs Patient Disposition: Home, Self-Care Instructions: Asthma (ED), Edema (ED) Additional Instructions: Please follow-up with your primary care physician tomorrow. If you have any worsening or new symptoms, please return to the emergency room or call 911 Prescriptions: New prednisone 50 mg tablet 50 mg PO DAILY Qty: 5 0RF guaifenesin 400 mg tablet 400 mg PO Q4H PRN (Reason: cough) Qty: 14 0RF albuterol sulfate 90 mcg/actuation HFA aerosol inhaler 2 puff inhalation Q4-6H PRN (Reason: shortness of breath or wheezing) Qty: 8.5 1RF furosemide [Lasix] 40 mg tablet 40 mg PO DAILY Qty: 4 0RF No Action albuterol sulfate 2.5 mg /3 mL (0.083 %) solution for nebulization 2.5 mg inhalation Q4H PRN (Reason: Shortness Of Breath Or Wheezing) hydroxyzine pamoate 50 mg capsule 50 mg PO BEDTIME PRN (Reason: Anxiety) albuterol sulfate [Ventolin HFA] 90 mcg/actuation HFA aerosol inhaler 2 puff inhalation Q6H PRN (Reason: Wheezing) loratadine 10 mg tablet 10 mg PO DAILY docusate sodium 100 mg capsule 100 mg PO BEDTIME PRN (Reason: Constipation) polyethylene glycol 3350 [Miralax] 17 gram/dose powder 17 g PO DAILY PRN (Reason: Constipation) doxycycline monohydrate 100 mg Capsule 100 mg PO Q12H Qty: 4 0RF prednisone 10 mg tablet See Rx Instructions .ROUTE .COMPLEX Qty: 20 0RF Rx Instructions: 40 mg daily x 2 days, then 30 mg daily x 2 days, then 20 mg daily x 2 days, then 10 mg daily x 2 days pregabalin 100 mg capsule 100 mg PO TID buspirone 7.5 mg tablet 7.5 mg PO TID fluticasone propionate 50 mcg/actuation spray,suspension 2 spray intranasal DAILY PRN (Reason: Congestion) lisinopril 40 mg tablet 40 mg PO QAM paroxetine HCl 40 mg tablet 40 mg PO QAM hydrochlorothiazide 25 mg tablet 25 mg PO QAM montelukast 10 mg tablet 10 mg PO BEDTIME metoprolol tartrate 50 mg tablet 50 mg PO BID fluticasone propion-salmeterol 500-50 mcg/dose blister with device 1 ea PO BID aspirin 81 mg tablet,delayed release (DR/EC) 81 mg PO BEDTIME calcium carbonate-vitamin D3 600 mg(1,500mg) -200 unit tablet 1 tab PO BID clonidine HCl 0.1 mg tablet 0.1 mg PO BEDTIME atorvastatin 80 mg tablet 80 mg PO BEDTIME metformin 500 mg tablet 500 mg PO DAILY@1800 famotidine 40 mg tablet 40 mg PO BEDTIME Incruse Ellipta 62.5 mcg/actuation blister with device 1 inh inhalation DAILY cholecalciferol (vitamin D3) [Vitamin D3] 50 mcg (2,000 unit) capsule 50 mcg PO QAM zolpidem 5 mg tablet 5 mg PO BEDTIME PRN (Reason: Insomnia) pantoprazole 40 mg tablet,delayed release (DR/EC) 40 mg PO DAILY Qty: 90 2RF Rx Instructions: take one tablet half an hour before breakfast Print Language: Bermudian
[2024-02-05 23:47] LABS: Basophils Absolute Auto 0.1 X10*3/uL (0.0-0.2); Basophils Percent Auto 1.4 % (0-2); Eosinophils Absolute Auto 1.2 X10*3/uL (0.0-0.4); Eosinophils Percent Auto 13.2 % (0-4); Hematocrit 39.4 % (37.0-47.0); Hemoglobin 13.1 g/dl (12.0-16.0); Imm Gran Abs Auto 0.02 X10*3/uL (0.00-0.03); Imm Gran Pct Auto 0.2 % (0.0-0.4); Lymphocytes Percent Auto 32.8 % (20-40); MANUAL DIFF FLAG NO; Mean Corpuscular HGB Conc 33.2 g/dl (31.0-35.0); Mean Corpuscular Hemoglobin 28.1 pg (27.0-33.0); Mean Corpuscular Volume 84.4 fL (80.0-98.0); Mean Platelet Volume 11.4 fL (9.4-12.3); Monocytes Absolute Auto 0.9 X10*3/uL (0.1-1.2); Monocytes Percent Auto 9.9 % (2-11); Neutrophils Absolute Auto 3.8 x10*3/uL (2.0-8.3); Neutrophils Percent Auto 42.5 % (45-73); Platelet Count 198 X10*3/uL (160-400); Red Blood Count 4.67 X10*6/uL (4.20-5.50); Red Cell Distribution Width 14.8 % (11.0-16.0)
[2024-02-05] MEDS: methylPREDNISolone Sod Succ 125 MG/2 ML VIAL IVPUSH (23:47)
[2024-02-05] MEDS: Magnesium Sulfate/H2O 2 GM/50 ML PIGGYBACK IV (23:47)
[2024-02-05] MEDS: Albuterol Sulfate 2.5 MG, Albuterol Sulfate (0.083%) 2.5 MG 5 MG INHALE (23:57)
[2024-02-05 23:58] VITALS: PULSE 71; RESP 17; O2SAT 94
[2024-02-06] LABS: Alanine Aminotransferase 20 U/L (0-31); Albumin Level 3.9 g/dL (3.5-5.0); Alkaline Phosphatase 117 U/L (39-117); Anion Gap 17 (12-20); Aspartate Amino Transferase 23 U/L (5-31); Bilirubin Direct 0.2 mg/dL (0.0-0.5); Bilirubin Total 0.4 mg/dL (0.0-1.0); Blood Urea Nitrogen 23 mg/dL (9-16); COVID-19 Test Negative (Negative); Calcium 9.4 mg/dL (8.4-10.2); Carbon Dioxide 33 mmol/L (22-29); Chloride 101 mmol/L (96-108); Estimated Glomerular Filt Rate > 60; Glucose Random 92 mg/dL (60-115); IDNOW Serial# 152EDE1D; Potassium 3.3 mmol/L (3.3-5.1); Sodium 148 mmol/L (135-145); Total Protein 6.8 g/dL (6.5-8.0)
[2024-02-06 00:06] LABS: B Type Natriuretic Peptide 22 pg/mL (<100)
[2024-02-06 00:07] LABS: Troponin-I High Sensitivity < 2.7 ng/L (<3.5-17.0)
[2024-02-06] MEDS: Albuterol Sulfate 5 MG, Albuterol/Iprat 2.5/0.5MG 3 ML 3 ML INHALE (01:09)
[2024-02-06 01:10] VITALS: PULSE 70; RESP 19; O2SAT 92
[2024-02-06 02:12] VITALS: BP 133/55; PULSE 85; RESP 16; TEMP 36.2; O2SAT 92
[2024-02-06 02:15] VITALS: O2SAT 90
--- NOTE | 2024-02-06 02:16 | PC.NURSE ---
ambulating pulse oximetry 90% , pt denies difficulty breathing with ambulation, no increased wob, says it is her baseline. MD Sesay aware, sending medications and prescription for new inhaler to pt pharmacy. pt calling daughter to come pick her up .
[2024-02-06 02:17] VITALS: BP 133/55; PULSE 85; RESP 16; TEMP 36.2; O2SAT 92
== END 2024-02-06 02:30 | disposition home or self-care (01) ==
PROVIDERS: Emergency Provider Emergency Medicine
DX: J45.909 Unspecified asthma, uncomplicated (principal); R60.0 Localized edema; R06.02 Shortness of breath; R05.9 Cough, unspecified; E11.9 Type 2 diabetes mellitus without complications; I10 Essential (primary) hypertension; E78.5 Hyperlipidemia, unspecified; Z79.82 Long term (current) use of aspirin; Z79.84 Long term (current) use of oral hypoglycemic drugs; Z79.899 Other long term (current) drug therapy; Z87.891 Personal history of nicotine dependence; Z11.52 Encounter for screening for COVID-19
CPT/HCPCS: 71045; 80048; 80076; 83880; 84484; 85025; 87635; 93005; 94640; 99285; J2919; J3475

== ENCOUNTER → 2024-02-05 23:11 | Outpatient (BNV) | payer OTHER, SELFPAY | PROVIDERS: Emergency Provider Emergency Medicine; Visit Provider Internal Medicine Cardiovascular Disease | DX: R06.02 Shortness of breath (principal) | CPT/HCPCS: 93010 ==

== ENCOUNTER 2024-02-12 13:22 | Outpatient (AMB) | payer OTHER, SELFPAY ==
[2024-02-12 13:36] VITALS: BP 114/62; PULSE 74; O2SAT 95; BMI 30.8
--- NOTE | 2024-02-12 13:36 | A.OFFVIS_ITS ---
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 She has been using Advair 500 and albuterol MDI / nebs. She is interested in restarting immunologic therapy. She has also been using Singulair and loratadine for underlying environmental allergies. Patient denies having recent pulmonary function testing. Patient denies family history of lung disease. PENDING SALE TO [facility] Medical History Hyperlipidemia Diabetes mellitus HTN (hypertension) CAD (coronary artery disease) Surgical History History of cholecystectomy S/P coronary artery stent placement History of tonsillectomy Family History Father Diabetes HTN (hypertension) CVD (cardiovascular disease) Heart failure Mother CVD (cardiovascular disease) Hypercholesteremia Social History Household Members: Family Housing: House Do you presently have visiting nurse or other home services: No Alcohol intake: former Year quit: 1991 Patient Tobacco Use Status: Former Tobacco user Years Smoked: 20 +/- service: No Review of Systems Const Denies daytime sleepiness, Denies excessive sweating, Denies fatigue, Denies fever(s), Denies lethargy, Denies malaise, Denies night sweats, Denies snoring and Denies weight loss Eyes Denies blurry vision and Denies itchy eyes ENT Denies nasal congestion, Denies post nasal drip, Denies sinus pain, Denies sinus pressure and Denies other ( Thrush) Card Denies chest pain, Denies pedal edema, Denies dyspnea, Denies orthopnea and Denies paroxysmal nocturnal dyspnea Resp Denies cough, Denies hemoptysis, Denies excessive phlegm production, Denies dyspnea, Denies snoring and Reports wheezing GI Denies abdominal pain and Denies heartburn Musc Denies myalgias, Denies arthralgias and Denies joint swelling Skin/Breast Denies rash Neuro Denies memory loss and Denies seizure-like activity Psych Denies abnormal sleep pattern, Denies anxiety and Denies memory loss Endo Denies excessive sweating, Denies fatigue and Denies heat intolerance Paul/Lymph Denies easy bruising Aller/Immun Denies itchy eyes, Denies seasonal rhinorrhea and Reports wheezing Physical Exam Vital Signs: Last Vital Signs Pulse 74 02/12/24 13:36 BP 114/62 02/12/24 13:36 Pulse Ox 95 02/12/24 13:36 Oxygen Delivery Method Room Air 02/12/24 13:36 BMI result Body Mass Index 30.8 Const General: no acute distress and alert Nutritional Appearance: not obese Orientation/consciousness: Other orientation findings ( oriented) HEENT Head: Yes atraumatic Eyes General: appearance normal, both eyes and all related structures Sclerae: sclerae normal EOM: EOMs intact bilaterally Neck Neck: Yes supple Lymphatic: no lymphadenopathy noted Resp Effort & Inspection: normal respiratory effort and no use of accessory muscles Auscultation: clear to auscultation bilaterally Cardio Rate: regular rate Rhythm: regular rhythm Heart sounds: no gallops, no murmurs and no rubs Skin General skin exam: other ( warm) Extrem General: No clubbing, No cyanosis and No edema Assessment & Plan Assessment & Plan (1) Asthma: Code(s): J45.909 - Unspecified asthma, uncomplicated Category: Medical Plan: Asthma suboptimally controlled on Advair and albuterol MDI /nebs. Previously on Xolair. Will request full PFT. Will evaluate for further Xolair therapy. (2) Environmental allergies: Code(s): Z91.09 - Other allergy status, other than to drugs and biological substances Category: Medical Plan: Will obtain RAST and IgE level for further evaluation. Orders: Orders Resp Allergy Profile Region I Today Z91.09 - Other allergy status, other than to drugs and biological substances Coding Level of Care Code New Pt Level 4 (64146) Diagnoses Asthma J45.909 Environmental allergies Z91.09
== END 2024-02-12 14:01 | disposition home or self-care (01) ==
PROVIDERS: PCP Family Medicine; Referring Provider Family Medicine; Visit Provider Internal Medicine Pulmonary Disease
DX: J45.909 Unspecified asthma, uncomplicated (principal); Z91.09 Other allergy status, other than to drugs and biological substances
CPT/HCPCS: 99204

== ENCOUNTER 2024-02-12 13:22 | Outpatient (REF) | payer OTHER, SELFPAY ==
[2024-02-14 06:28] LABS: Class Alternaria alternata 0; Class Aspergillus fumigatus 0; Class Bermuda Grass 0; Class Birch 0; Class Cat Dander 0; Class Cladosporium herbarum 0; Class Cockroach 0; Class Common Ragweed 0; Class Cottonwood 0; Class Derm. pterony 0; Class Dermatophagoides farinae 0; Class Dog Dander 0; Class Elm 0; Class Maple Box Elder 0; Class Mountain Cedar 0; Class Mouse Urine Protein 0; Class Mugwort 0; Class Oak 0; Class Penicillium crysogenum 0; Class Rough Pigweed 0; Class Sheep Sorrel 0; Class Sycamore 0; Class Timothy Grass 0; Class Walnut Tree 0; Class White Ash 0; Class White Mulberry 0; D001 IgE D pteronyssinus <0.10 kU/L; D002 - IgE D farinae <0.10 kU/L; E001 - IgE Cat Dander <0.10 kU/L; E005 - IgE Dog Dander <0.10 kU/L; E072-IgE Mouse Urine <0.10 kU/L; G002 IgE Bermuda Grass <0.10 kU/L; G006 - IgE Timothy Grass <0.10 kU/L; I006-IgE Cockroach, German <0.10 kU/L; Immunoglobulin E 663 kU/L (<OR=114); M001 IgE Penicillium chrysogen <0.10 kU/L; M002 - IgE Cladosporium herbar <0.10 kU/L; M003 - IgE Aspergillus fumigat <0.10 kU/L; M006 - IgE Alternaria alternat <0.10 kU/L; T001 IgE Maple/Box Elder <0.10 kU/L; T003 IgE Common Silver Birch <0.10 kU/L; T006 - IgE Cedar, Mountain <0.10 kU/L; T007 - IgE Oak, White <0.10 kU/L; T008 IgE Elm, American <0.10 kU/L; T010 - IgE Walnut <0.10 kU/L; T011 - IgE Maple Leaf Sycamore <0.10 kU/L; T014 - IgE Cottonwood <0.10 kU/L; T015 - IgE Ash, White <0.10 kU/L; T070 - IgE White Mulberry <0.10 kU/L; W001 - IgE Ragweed, Short <0.10 kU/L; W006 - IgE Mugwort <0.10 kU/L; W014 IgE Pigweed, Common <0.10 kU/L; W018 IgE Sheep Sorrel <0.10 kU/L
== END 2024-02-12 13:23 | disposition home or self-care (01) ==
LOC: HO.LAB 13:22
PROVIDERS: PCP Family Medicine; Referring Provider Family Medicine; Visit Provider Internal Medicine Pulmonary Disease
DX: J45.909 Unspecified asthma, uncomplicated (principal); Z91.09 Other allergy status, other than to drugs and biological substances; Z87.891 Personal history of nicotine dependence
CPT/HCPCS: 36415; 82785; 86003; 99202

== ENCOUNTER 2024-02-20 12:56 | Outpatient (AMB) | payer OTHER, SELFPAY ==
--- NOTE | 2024-02-20 13:00 | A.OFFVIS_ITS ---
Vital Signs 02/20/24 13:08 Height 5 ft 1 in Weight 165 lb 12.602 oz BMI 31.3 BP 96/52 L Blood Pressure Location Rt brachial Position Sitting Pulse 76 Pulse Source Pulse Oximeter Pulse Oximetry (%) 94 Oxygen Delivery Method Room Air Intake Visit Reasons: 6 month follow up Intake Note: Malia presents in office today for a scheduled 6 mos FUV. CC: Pt reports that she has been doing well. Pt states that their current medication regimen is still working ok for them. Pt does report that she has been having a very difficult time managing her allergies and asthma. Pt is currently monitoring her breathing and oxygen. Bracelet Former Required: No Allergies ENVIRONMENTAL Allergy (Unknown, Uncoded 02/12/24 13:39) SNEEZING,SOB HPI HPI 6 month follow up: Details: LAST VISIT: IBS (irritable bowel syndrome) Chronic idiopathic constipation GERD (gastroesophageal reflux disease) Plan Patient can continue pantoprazole, continue avoiding dietary triggers in late night snacking. Patient can take MiraLax in the morning and Colace in the evening. Patient was encouraged to increase fluid intake and activity to promote better bowel motility. Patient requesting Proctosol to help with hemorrhoids. I will see patient in 6 months, sooner on as needed basis. Patient is agreeable to this plan and verbalizes understanding of instructions. She was given the opportunity to ask questions and all questions answered. ? Thank you for allowing me to participate in her care Medications Changed Changed From polyethylene glycol 3350 17 grams PO DAILY 510 grams 2RF Changed To polyethylene glycol 3350 (Miralax) 17 grams PO DAILY 510 grams 2RF Refilled pantoprazole take one tablet half an hour before breakfast 40 mg PO DAILY 90 tabs 2RF K21.9 docusate sodium 100 mg PO BEDTIME 90 caps 3RF K59.00 hydrocortisone 2.5% (Proctosol HC) 1 appl DE BID-QID PRN 30 grams 2RF hemorrhoids K64.9 TODAY'S VISIT: Patient is here today for follow-up. Patient reports that she has been doing w ell, taking pantoprazole in the morning before breakfast and reports that her symptoms are suppressed. Patient is moving her bowels without any issues. Denies any abdominal pain or bloating. She does admit to have more respiratory issues. Has seen pulmonology last week. Patient has appointment to have pulmonary function test done next month. Patient reports that her allergies are acting up more than ever. Patient denies any melena, hematochezia, unintentional weight loss or ribbon like stools. Patient denies any dyspepsia, dysphagia or odynophagia. [facility] Medical History Hyperlipidemia Diabetes mellitus HTN (hypertension) CAD (coronary artery disease) Surgical History History of cholecystectomy S/P coronary artery stent placement History of tonsillectomy Family History Father Diabetes HTN (hypertension) CVD (cardiovascular disease) Heart failure Mother CVD (cardiovascular disease) Hypercholesteremia Social History Household Members: Family Housing: House Do you presently have visiting nurse or other home services: No Alcohol intake: former Year quit: 1991 Patient Tobacco Use Status: Former Tobacco user Years Smoked: 20 +/- service: No Review of Systems Const Denies weight gain and Denies weight loss ENT Reports no additional complaints, Denies dysphagia and Denies odynophagia Card Reports no additional complaints and Reports dyspnea (Occasional due to asthma) Resp Reports cough and Reports dyspnea (Occasional due to asthma) GI Denies abdominal pain, Denies belching, Denies melena, Denies bloating, Denies change in bowel habits, Denies dysphagia, Denies excessive flatus, Denies dyspepsia, Denies heartburn, Denies diarrhea, Denies loose stools, Denies nausea, Denies odynophagia and Denies vomiting Musc Reports no additional complaints Neuro Reports no additional complaints Psych Reports no additional complaints Endo Reports no additional complaints Physical Exam Vital Signs: Last Vital Signs Pulse 76 02/20/24 13:08 BP 96/52 L 02/20/24 13:08 Pulse Ox 94 02/20/24 13:08 Oxygen Delivery Method Room Air 02/20/24 13:08 BMI result Body Mass Index 31.3 Const General: healthy appearing and no acute distress Nutritional Appearance: obese Orientation/consciousness: patient oriented x3 Resp Effort & Inspection: normal respiratory effort, able to speak in complete sentences, no tracheal deviation and symmetric chest movement Auscultation: wheezes expiratory wheezes (Faint) Cardio Rate: regular rate GI Inspection: Yes normal to inspection, No distended and Yes obesity Palpation (GI): Soft to palpation, not firm, nontender and No hepatosplenomegaly present Auscultation: normal bowel sounds General: Yes no CVA tenderness Back/Spine/Pelvis Back: no CVA tenderness Skin General skin exam: elasticity normal, turgor normal and dry skin Neuro General: patient oriented x3 Psych Appearance: grossly normal Mental Status: mental status grossly normal Assessment & Plan Assessment & Plan (1) IBS (irritable bowel syndrome): Code(s): K58.9 - Irritable bowel syndrome without diarrhea Qualifiers: Irritable bowel syndrome type: without diarrhea Qualified Code(s): K58.9 - Irritable bowel syndrome without diarrhea (2) Chronic idiopathic constipation: Code(s): K59.04 - Chronic idiopathic constipation (3) GERD (gastroesophageal reflux disease): Code(s): K21.9 - Gastro-esophageal reflux disease without esophagitis Qualifiers: Esophagitis presence: esophagitis presence not specified Qualified Code(s): K21.9 - Gastro-esophageal reflux disease without esophagitis Plan Patient will continue taking pantoprazole in the morning and will continue avoiding dietary triggers and late night snacking. Staying upright for minimum 3 hours after meals discussed with patient. Recent worsening respiratory issues with worsening asthma. Patient will have a pulmonary function test done. She is due to go this year for colonoscopy. However patient currently has been having increased respiratory issues. Hyperplastic polyp seen in 2019, however patient does have a history of tubular adenoma. Patient denies any melena, hematochezia, unintentional weight loss or ribbon like stools. Patient will return in 6 months and we will discuss going for colonoscopy. Patient is agreeable to this plan and verbalizes understanding of instructions. She was given the opportunity to ask questions and all questions answered. Thank you for allowing me to participate in her care Coding Level of Care Code Est Pt Level 3 (71799) Diagnoses Irritable bowel syndrome without diarrhea K58.9 Irritable bowel syndrome type: without diarrhea Chronic idiopathic constipation K59.04 Gastroesophageal reflux disease, unspecified whether esophagitis present K21.9 Esophagitis presence: esophagitis presence not specified Time Spent (min) 30 Comment 20 minutes spent with patient and additional 10 minutes spent reviewing her records
[2024-02-20 13:08] VITALS: BP 96/52; PULSE 76; O2SAT 94; BMI 31.3
== END 2024-02-20 13:25 | disposition home or self-care (01) ==
PROVIDERS: PCP Family Medicine; Visit Provider Nurse Practitioner Family
DX: K58.9 Irritable bowel syndrome, unspecified (principal); K59.04 Chronic idiopathic constipation; K21.9 Gastro-esophageal reflux disease without esophagitis
CPT/HCPCS: 99213

== ENCOUNTER → 2024-02-20 12:56 | Outpatient (BNVA) | payer OTHER, SELFPAY | PROVIDERS: PCP Family Medicine; Visit Provider Nurse Practitioner Family | DX: K58.9 Irritable bowel syndrome, unspecified (principal); K59.04 Chronic idiopathic constipation; K21.9 Gastro-esophageal reflux disease without esophagitis | CPT/HCPCS: 99212 ==

== ENCOUNTER 2024-04-16 13:15 | Outpatient (AMB) | payer OTHER, SELFPAY ==
--- NOTE | 2024-04-16 13:44 | A.OFFVIS_ITS ---
Vital Signs 04/16/24 13:45 Height 5 ft 1 in Weight 167 lb 8.821 oz BMI 31.7 BP 120/70 Blood Pressure Location Lt brachial Position Sitting Pulse 74 Intake Visit Reasons: 1 year follow up Intake Note: 1 year follow-up was in [facility] last month for asthma c/o fatigue and leg swelling Heel Shaver Required: No Allergies ENVIRONMENTAL Allergy (Unknown, Uncoded 02/12/24 13:39) SNEEZING,SOB Medication List - Last Reconciled 04/16/24 by Geovanni Benoit MD albuterol sulfate 2.5 mg inhalation Q4H PRN albuterol sulfate 90 mcg/actuation (Ventolin HFA) 2 puffs inhalation Q6H PRN albuterol sulfate 90 mcg/actuation 2 puffs inhalation Q4-6H PRN aspirin 81 mg PO BEDTIME atorvastatin 80 mg PO BEDTIME azelastine intranasal buspirone 7.5 mg PO TID cholecalciferol (vitamin D3) (Vitamin D3) 50 mcg PO QAM clonidine HCl 0.1 mg PO BEDTIME docusate sodium 100 mg PO BEDTIME PRN doxycycline monohydrate 100 mg PO Q12H famotidine 40 mg PO BEDTIME fluticasone propion-salmeterol 500-50 mcg/dose 1 ea PO BID fluticasone propionate 50 mcg/actuation 2 sprays intranasal DAILY PRN [id number] 200-62.5-25 mcg (Trelegy Ellipta) 1 ea inhalation DAILY furosemide (Lasix) 40 mg PO DAILY guaifenesin 400 mg PO Q4H PRN hydrochlorothiazide 25 mg PO QAM hydroxyzine pamoate 25 mg PO BID lisinopril 40 mg PO QAM loratadine 10 mg PO DAILY metformin 500 mg PO Q OTHER DAY metoprolol tartrate 50 mg PO BID montelukast 10 mg PO BEDTIME paroxetine HCl 40 mg PO QAM pregabalin 100 mg PO TID HPI Comments Details: Malia comes for follow-up. Patient continues to exertional shortness of breath. She has significant bronchospastic airway disease. Denies any orthopnea, PND, leg edema. No clear exertional chest pain. Denies any prolonged palpitation irregular heartbeat. Takes all her medications. No recent lipid panel. [facility] Medical History Hyperlipidemia Diabetes mellitus HTN (hypertension) CAD (coronary artery disease) Surgical History History of cholecystectomy S/P coronary artery stent placement History of tonsillectomy Family History Father Diabetes HTN (hypertension) CVD (cardiovascular disease) Heart failure Mother CVD (cardiovascular disease) Hypercholesteremia Social History Household Members: Family Housing: House Do you presently have visiting nurse or other home services: No Alcohol intake: former Year quit: 1991 Patient Tobacco Use Status: Former Tobacco user Years Smoked: 20 +/- service: No Review of Systems Const Denies chills, Denies fatigue, Denies fever(s), Denies frequent falls, Denies weakness, Denies weight gain and Denies weight loss ENT Denies dizziness Card Denies chest pain, Denies leg edema, Denies lightheadedness, Denies palpitations, Denies dyspnea, Denies dyspnea on exertion, Denies orthopnea and Denies other (loss of consciousness) Resp Denies cough, Denies dyspnea and Denies dyspnea on exertion GI Denies hematochezia and Denies change in stool character Musc Denies abnormal gait, Denies muscle weakness, Denies numbness, Denies radiating pain into limb and Denies tingling Neuro Denies abnormal gait, Denies dizziness, Denies frequent falls, Denies numbness, Denies tingling and Denies weakness Endo Denies fatigue and Denies palpitations Physical Exam Vital Signs: Last Vital Signs Pulse 74 04/16/24 13:45 BP 120/70 04/16/24 13:45 BMI result Body Mass Index 31.7 Const General: cooperative, comfortable and no acute distress Orientation/consciousness: patient oriented x3 Neck Neck: Yes normal visual inspection and Yes no JVD Resp Other: Bilateral expiratory wheezes noted Effort & Inspection: normal respiratory effort Auscultation: no rales, no rhonchi and wheezes expiratory wheezes Cardio Rate: regular rate Rhythm: regular rhythm Heart sounds: S1 normal heart sound present, S2 normal heart sound present, no gallops, no murmurs and no rubs GI Inspection: Yes normal to inspection Neuro General: patient oriented x3 Extrem General: Yes normal to inspection Psych Appearance: grossly normal Mental Status: mental status grossly normal Speech and movement: Normal speech and movement present Assessment & Plan Assessment & Plan (1) CAD (coronary artery disease): Code(s): I25.10 - Atherosclerotic heart disease of [place] coronary artery without angina pectoris Category: Medical Plan: Stable CAD in this elderly woman with prior diagnose stenting. Moderately severe disease in the RCA. This was FFR negative by cardiac catheterization. He is currently not having any concerning symptoms of angina. She does have significant exertional shortness of breath which are most likely related to her pulmonary parenchymal disease/bronchospastic airway disease. At this point time no further cardiac workup is indicated. Continue aggressive medical therapy including aggressive risk factor modification. Advise low-dose aspirin therapy for life. Continue high-intensity statin therapy. Advised lipid panel in near future. Continue aggressive blood pressure control. Target goal blood pressure less than 130/84. Continue aggressive diabetes management goal hemoglobin A1c less than 7%. Will follow up in the clinic in 1 year's time, sooner p.r.n.. Thank you for allowing me to partake in his care Orders: Orders Lipid Panel Today Geovanni Benoit MD I25.10 - Atherosclerotic heart disease of [place] coronary artery without angina pectoris Medications: Changed From doxycycline monohydrate 100 mg PO Q12H 4 caps 0RF To doxycycline monohydrate 100 mg PO Q12H Iris Roman MD Coding Level of Care Code Est Pt Level 4 (82818) Diagnoses CAD (coronary artery disease) I25.10
[2024-04-16 13:45] VITALS: BP 120/70; PULSE 74; BMI 31.7
== END 2024-04-16 14:11 | disposition home or self-care (01) ==
LOC: HO.HCS 13:15
PROVIDERS: PCP Family Medicine; Visit Provider Internal Medicine Cardiovascular Disease
DX: I25.10 Atherosclerotic heart disease of native coronary artery without angina pectoris (principal)
CPT/HCPCS: 99214

== ENCOUNTER → 2024-04-16 13:15 | Outpatient (BNVA) | payer OTHER, SELFPAY | PROVIDERS: PCP Family Medicine; Visit Provider Internal Medicine Cardiovascular Disease | DX: I25.10 Atherosclerotic heart disease of native coronary artery without angina pectoris (principal); R06.02 Shortness of breath | CPT/HCPCS: 99212 ==

== ENCOUNTER 2024-04-25 12:45 | Outpatient (REF) | payer OTHER, SELFPAY ==
[2024-04-28 14:12] LABS: Microalbumin Urine < 5.0 mg/L
== END 2024-04-25 12:46 | disposition home or self-care (01) ==
LOC: HO.HHCL 12:45
PROVIDERS: Visit Provider Internal Medicine Cardiovascular Disease
DX: Z13.89 Encounter for screening for other disorder (principal)
CPT/HCPCS: 82043; 82570

== ENCOUNTER 2024-04-25 13:26 | Outpatient (REF) | payer OTHER, SELFPAY ==
[2024-04-25 16:11] LABS: MANUAL DIFF FLAG NO
[2024-04-25 16:19] LABS: Basophils Absolute Auto 0.1 X10*3/uL (0.0-0.2); Basophils Percent Auto 1.1 % (0-2); Eosinophils Absolute Auto 0.8 X10*3/uL (0.0-0.4); Eosinophils Percent Auto 8.8 % (0-4); Hemoglobin 12.7 g/dl (12.0-16.0); Imm Gran Abs Auto 0.04 X10*3/uL (0.00-0.03); Imm Gran Pct Auto 0.4 % (0.0-0.4); Lymphocytes Absolute Auto 2.1 X10*3/uL (1.2-4.9); Lymphocytes Percent Auto 22.6 % (20-40); Mean Corpuscular HGB Conc 32.6 g/dl (31.0-35.0); Mean Corpuscular Hemoglobin 27.5 pg (27.0-33.0); Mean Corpuscular Volume 84.6 fL (80.0-98.0); Mean Platelet Volume 11.9 fL (9.4-12.3); Monocytes Absolute Auto 0.7 X10*3/uL (0.1-1.2); Neutrophils Absolute Auto 5.5 x10*3/uL (2.0-8.3); Neutrophils Percent Auto 60.1 % (45-73); Platelet Count 227 X10*3/uL (160-400); Red Blood Count 4.61 X10*6/uL (4.20-5.50); White Blood Count 9.2 X10*3/uL (4.8-10.8)
[2024-04-25 16:20] LABS: Estimated Average Glucose 126 mg/dL
[2024-04-25 16:24] LABS: Cholesterol 137 mg/dL (<200); HDL Cholesterol 52 mg/dL (>40); LDL Cholesterol Calculated 54 mg/dL (<100); Triglycerides 157 mg/dL (<150)
[2024-04-25 16:38] LABS: Alanine Aminotransferase 19 U/L (0-31); Albumin Level 3.7 g/dL (3.5-5.0); Alkaline Phosphatase 104 U/L (39-117); Anion Gap 13 (12-20); Aspartate Amino Transferase 21 U/L (5-31); Bilirubin Direct 0.1 mg/dL (0.0-0.5); Bilirubin Total 0.5 mg/dL (0.0-1.0); Blood Urea Nitrogen 18 mg/dL (9-16); Calcium 9.3 mg/dL (8.4-10.2); Carbon Dioxide 29 mmol/L (22-29); Chloride 104 mmol/L (96-108); Cholesterol 139 mg/dL (<200); Estimated Glomerular Filt Rate > 60; Glucose Random 79 mg/dL (60-115); HDL Cholesterol 52 mg/dL (>40); LDL Cholesterol Calculated 56 mg/dL (<100); Potassium 3.7 mmol/L (3.3-5.1); Sodium 142 mmol/L (135-145); Total Protein 6.8 g/dL (6.5-8.0); Triglycerides 159 mg/dL (<150)
[2024-04-25 16:56] LABS: Free T4 (Free Thyroxine) 1.08 ng/dL (0.71-1.85); Thyroid Stimulating Hormone 1.47 uIU/mL (0.32-4.0); Vitamin D 25-OH Total 27.9 ng/mL (>30)
[2024-04-29 07:03] LABS: Alpha Fetoprotein 2.4 ng/mL
== END 2024-04-25 13:27 | disposition home or self-care (01) ==
LOC: HO.HHCL 13:26
PROVIDERS: Family Medicine; Visit Provider Internal Medicine Cardiovascular Disease
DX: Z00.00 Encounter for general adult medical examination without abnormal findings (principal); I10 Essential (primary) hypertension; E78.49 Other hyperlipidemia; K76.0 Fatty (change of) liver, not elsewhere classified; F32.A Depression, unspecified; I25.10 Atherosclerotic heart disease of native coronary artery without angina pectoris; J45.40 Moderate persistent asthma, uncomplicated; E11.42 Type 2 diabetes mellitus with diabetic polyneuropathy; I83.813 Varicose veins of bilateral lower extremities with pain
CPT/HCPCS: 36415; 80048; 80061; 80076; 82043; 82105; 82306; 82570; 83036; 84439; 84443; 85025

== ENCOUNTER 2024-05-20 13:19 | Outpatient (AMB) | payer OTHER, SELFPAY ==
--- NOTE | 2024-05-20 13:20 | A.OFFVIS_ITS ---
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 She has been using Advair 500 and albuterol MDI / nebs. She is interested in restarting immunologic therapy. She has also been using Singulair and loratadine for underlying environmental allergies. Patient denies having recent pulmonary function testing. Patient denies family history of lung disease. After the last office visit patient completed her immunologic workup that showis significant eosinophilia. Her symptoms are not well controlled on her current regimen of Advair 500 and albuterol MDI, though she denies an acute exacerbation. [facility] Medical History Hyperlipidemia Diabetes mellitus HTN (hypertension) CAD (coronary artery disease) Surgical History History of cholecystectomy S/P coronary artery stent placement History of tonsillectomy Family History Father Diabetes HTN (hypertension) CVD (cardiovascular disease) Heart failure Mother CVD (cardiovascular disease) Hypercholesteremia Social History Household Members: Family Housing: House Do you presently have visiting nurse or other home services: No Alcohol intake: former Year quit: 1991 Patient Tobacco Use Status: Former Tobacco user Years Smoked: 20 +/- service: No Review of Systems Const Denies daytime sleepiness, Denies excessive sweating, Denies fatigue, Denies fever(s), Denies lethargy, Denies malaise, Denies night sweats, Denies snoring and Denies weight loss Eyes Denies blurry vision and Denies itchy eyes ENT Denies nasal congestion, Denies post nasal drip, Denies sinus pain, Denies sinus pressure and Denies other ( Thrush) Card Denies chest pain, Reports pedal edema, Denies dyspnea, Denies orthopnea and Denies paroxysmal nocturnal dyspnea Resp Denies cough, Denies hemoptysis, Denies excessive phlegm production, Denies dyspnea, Denies snoring and Denies wheezing GI Denies abdominal pain and Denies heartburn Musc Denies myalgias, Denies arthralgias and Denies joint swelling Skin/Breast Denies rash Neuro Denies memory loss and Denies seizure-like activity Psych Denies abnormal sleep pattern, Denies anxiety and Denies memory loss Endo Denies excessive sweating, Denies fatigue and Denies heat intolerance Paul/Lymph Denies easy bruising Aller/Immun Denies itchy eyes, Denies seasonal rhinorrhea and Denies wheezing Physical Exam Vital Signs: Last Vital Signs Pulse 73 05/20/24 13:21 BP 104/60 05/20/24 13:21 Pulse Ox 94 05/20/24 13:21 Oxygen Delivery Method Room Air 05/20/24 13:21 BMI result Body Mass Index 33.1 Const General: no acute distress and alert Nutritional Appearance: not obese Orientation/consciousness: Other orientation findings ( oriented) HEENT Head: Yes atraumatic Eyes General: appearance normal, both eyes and all related structures Sclerae: sclerae normal EOM: EOMs intact bilaterally Neck Neck: Yes supple Lymphatic: no lymphadenopathy noted Resp Effort & Inspection: normal respiratory effort and no use of accessory muscles Auscultation: clear to auscultation bilaterally Cardio Rate: regular rate Rhythm: regular rhythm Heart sounds: no gallops, no murmurs and no rubs Skin General skin exam: other ( warm) Extrem General: No clubbing, No cyanosis and Yes edema (1+ bilateral) Assessment & Plan Assessment & Plan (1) Moderate persistent asthma with exacerbation: Code(s): J45.41 - Moderate persistent asthma with (acute) exacerbation Category: Medical Plan: Suboptimal control on Advair 500, albuterol MDI/nebs. Will request Nucala approval. (2) Environmental allergies: Code(s): Z91.09 - Other allergy status, other than to drugs and biological substances Category: Medical Plan: Expect to improve on Nucala. (3) Dyspnea on exertion: Code(s): R06.09 - Other forms of dyspnea Category: Medical Plan: Will obtain 2D echocardiogram for further evaluation. Orders: Orders CA echo transthoracic complete Today R06.09 - Other forms of dyspnea Coding Level of Care Code Est Pt Level 4 (01736) Diagnoses Moderate persistent asthma with exacerbation J45.41 Environmental allergies Z91.09 Dyspnea on exertion R06.09
[2024-05-20 13:21] VITALS: BP 104/60; PULSE 73; O2SAT 94; BMI 33.1
== END 2024-05-20 13:41 | disposition home or self-care (01) ==
PROVIDERS: PCP Family Medicine; Visit Provider Internal Medicine Pulmonary Disease
DX: J45.41 Moderate persistent asthma with (acute) exacerbation (principal); Z91.09 Other allergy status, other than to drugs and biological substances; R06.09 Other forms of dyspnea
CPT/HCPCS: 99214

== ENCOUNTER → 2024-05-20 13:19 | Outpatient (BNVA) | payer OTHER, SELFPAY | PROVIDERS: PCP Family Medicine; Visit Provider Internal Medicine Pulmonary Disease | DX: I83.11 Varicose veins of right lower extremity with inflammation (principal); I83.811 Varicose veins of right lower extremity with pain; I89.0 Lymphedema, not elsewhere classified; J45.41 Moderate persistent asthma with (acute) exacerbation; Z91.09 Other allergy status, other than to drugs and biological substances; R06.09 Other forms of dyspnea; Z87.891 Personal history of nicotine dependence | CPT/HCPCS: 99202; 99212 ==

== ENCOUNTER 2024-05-20 13:54 | Outpatient (AMB) | payer OTHER, SELFPAY ==
--- NOTE | 2024-05-20 14:03 | A.OFFVIS_ITS ---
Intake Visit Reasons: [facility] referral/ VV with pain Intake Note: Patient presents for VV with pain. Patient states she has leg pain, foot pain and swelling. Both legs and ankles are significantly swollen. States they started swelling after she had a fall 3 month ago. Allergies ENVIRONMENTAL Allergy (Unknown, Uncoded 02/12/24 13:39) SNEEZING,SOB HPI HPI [facility] referral/ VV with pain: Details: Very pleasant 68-year-old female patient presents for painful varicose veins. Complaints include pain over varicosities, swelling of lower extremities, cramping, fatigue, and heaviness of the lower extremities. It has been affecting there daily activities including walking. It is noted more so in right leg. Of note she is a diabetic and has significant neuropathy as well. Patient denies any previous venous surgery or injections. Patient denies any history of DVT/ PE. Patient denies any history of phlebitis. Trial of compression includes - [id number] They now present for vascular evaluation regarding their varicose veins. [facility] Medical History Hyperlipidemia Diabetes mellitus HTN (hypertension) CAD (coronary artery disease) Surgical History History of cholecystectomy S/P coronary artery stent placement History of tonsillectomy Family History Father Diabetes HTN (hypertension) CVD (cardiovascular disease) Heart failure Mother CVD (cardiovascular disease) Hypercholesteremia Social History Household Members: Family Housing: House Do you presently have visiting nurse or other home services: No Alcohol intake: former Year quit: 1991 Patient Tobacco Use Status: Former Tobacco user Years Smoked: 20 +/- service: No Review of Systems Const Reports as per HPI ENT Reports no additional complaints Card Denies chest pain, Denies chest pain at rest and Denies chest pain with activity Resp Denies chest congestion and Denies cough GI Reports no additional complaints Musc Details: pain over varicosities, aching of lower extremities, swelling, cramping, heaviness and tiredness, itching Denies abnormal gait Skin/Breast Reports pruritus and Denies wounds Neuro Reports no additional complaints and Denies abnormal gait Psych Denies no additional complaints Physical Exam Const General: cooperative, healthy appearing and comfortable Orientation/consciousness: oriented to person, oriented to place and oriented to time Neck Carotids: no bruits Chest Chest palpation & inspection: normal inspection of the chest and normal palpation of entire chest wall Resp Effort & Inspection: normal respiratory effort and able to speak in complete sentences Cardio Rate: regular rate Heart sounds: S1 normal heart sound present and S2 normal heart sound present Peripheral pulses: Peripheral pulses 2+ throughout GI Inspection: Yes normal to inspection Skin Other: +2 edema, CEAP Classification C4 - skin color changes Ep - Etiology Primary As - superficial veins P - reflux General skin exam: dry skin Neuro General: oriented to person, oriented to place and oriented to time Extrem Right lower extremity: full ROM, normal capillary refill and edema Left lower extremity: full ROM, normal capillary refill and edema Psych Mental Status: mental status grossly normal Assessment & Plan Assessment & Plan (1) Varicose veins of right lower extremity with inflammation: Code(s): I83.11 - Varicose veins of right lower extremity with inflammation Category: Medical Plan: In short patient has significant swelling of bilateral lower extremities. I do believe this may be more lymphedema in nature than venous. I have taken the liberty of ordering venous insufficiency testing to rule that out. In addition the patient has palpable dorsalis pedis pulses. I did discuss routine c onservative measures including compression elevation and exercise. She will follow up with us after venous testing. Thank you for allowing us to assist in her care. (2) Lymphedema: Code(s): I89.0 - Lymphedema, not elsewhere classified Category: Medical Plan: Once again we will evaluate the venous component of this lower extremity edema. Should that prove to be negative may benefit from lymphedema treatment. She will follow up with us. Thank you for allowing us to assist in her care. Should there be any questions or concerns please do not hesitate to contact us. Orders: Orders US venous duplex LE BI 1 Week I83.11 - Varicose veins of right lower extremity with inflammation Coding Level of Care Code New Pt Level 4 (71684) Diagnoses Varicose veins of right lower extremity with inflammation I83.11 Lymphedema I89.0
== END 2024-05-20 14:18 | disposition home or self-care (01) ==
PROVIDERS: PCP Family Medicine; Visit Provider Surgery Vascular Surgery
DX: I83.11 Varicose veins of right lower extremity with inflammation (principal); I89.0 Lymphedema, not elsewhere classified
CPT/HCPCS: 99204

== ENCOUNTER 2024-06-17 12:34 | Outpatient (REF) | payer OTHER, SELFPAY ==
--- NOTE | ~2024-06-17 | US_ITS ---
EXAMINATION: US VENOUS BILATERAL LOWER EXTREMITIES (REFLUX EXAM) CLINICAL INDICATION: Varicose veins of right lower extremity with inflammation COMPARISON: None TECHNIQUE: Color flow triplex imaging and compression Doppler was performed to evaluate both the deep and the superficial systems bilaterally. To evaluate the superficial system, the examination was performed in the upright position. Color-flow Doppler ultrasound and compression ultrasound were utilized. In addition, maneuvers were utilized to demonstrate reflux. FINDINGS: 1. DEEP VENOUS ULTRASOUND OF THE RIGHT LOWER EXTREMITY: Respiratory variation, normal compression and augmented flow are noted in the right common femoral vein as well as the right popliteal vein and there is no evidence of deep venous thrombosis at these locations. There is no evidence of reflux in the deep system in either the common femoral vein or the popliteal vein. There is no evidence of a Novoa's cyst. 2. SUPERFICIAL ULTRASOUND WITH DOPPLER OF RIGHT LOWER EXTREMITY: The right great saphenous vein at the saphenofemoral junction measures 6 mm, at the proximal thigh 4 mm, at the mid thigh 2 mm, above the knee 3 mm, at the knee 2 mm, [id number] 4 mm, midcalf 3 mm and at the ankle measures 4 mm. There is a 1.5 seconds of reflux at the saphenofemoral junction. Duplicated Right Great Saphenous Vein: There is a 3 mm medial accessory saphenous that does not reflux. The right small saphenous vein measures 4 mm and shows no reflux. Accessory Vein of [place]: None Incompetent Perforators: There is a 2 mm incompetent risk assessment analyst in the mid calf with 2.1 seconds of reflux Varices Present: Some varices present in the mid thyroid measuring 0.3 cm show no reflux 3. DEEP VENOUS ULTRASOUND OF THE LEFT LOWER EXTREMITY: Respiratory variation, normal compression and augmented flow are noted in the left common femoral vein as well as the left popliteal vein and there is no evidence of deep venous thrombosis at these locations. There is no evidence of reflux in the deep system in either the common femoral vein or the popliteal vein. There is no evidence of a Novoa's cyst. 4. SUPERFICIAL ULTRASOUND WITH DOPPLER OF LEFT LOWER EXTREMITY: Left great saphenous vein at the saphenofemoral junction measures 6 mm, at the proximal thigh 5 mm, at the mid thigh 4 mm, above the knee 3 mm, at the knee 3 mm, [id number] 2 mm, midcalf 1 mm and at the ankle measures 2 mm. There is no reflux demonstrated in the left great saphenous vein. Duplicated Left Great Saphenous Vein: None The left small saphenous vein measures 2 mm and shows no reflux. Accessory Vein of [place]: None Incompetent Perforators: None. Varices Present: None US/US venous insuf bilat IMPRESSION: 1. No evidence of reflux or thrombus in the common femoral veins or popliteal veins bilaterally. 2. The right great saphenous vein shows reflux at the saphenofemoral junction. 3. The left great saphenous vein shows no reflux. 4. Incompetent risk assessment analyst in the right mid calf. Electronically signed by: Alexandro Camacho MD 06/22/2024 09:51 AM EDT
== END 2024-06-17 12:35 | disposition home or self-care (01) ==
LOC: HO.US 12:34
PROVIDERS: PCP Family Medicine; Visit Provider Surgery Vascular Surgery
DX: I83.11 Varicose veins of right lower extremity with inflammation (principal)
CPT/HCPCS: 93970

== ENCOUNTER → 2024-06-25 12:28 | Outpatient (REF) | payer OTHER, SELFPAY ==
--- NOTE | 2024-06-25 12:31 | CA_ITS ---
Transthoracic Echocardiogram Patient (Last, First, Middle): Malia Romeo, Gender: Female Date of : 1955 Age: 69 Procedure Date: 06/25/2024 Procedure Type: Transthoracic Echocardiogram Location: OP Height: 154.94 cm Weight: 79.38 kg BSA: 1.78 m2 Heart Rate: 69 bpm BP: 110 / 62 mmHg Direct Sales Representative: SB Referring MD: Dean Gutierrez MD Symptoms: R06.09 - Other forms of dyspnea Study Quality: Adequate ECG Rhythm: Sinus Conclusions: - The left ventricular systolic function is normal. The calculated ejection fraction is 67% by biplane method. - No obvious valvular pathology seen on this study. - There is no evidence of pulmonary hypertension. Findings Procedure Information Contrast agent, definity, is being given per protocol without apparent complications. Left Ventricle Normal left ventricular cavity size. There is normal left ventricular wall thickness. The left ventricular systolic function is normal. The calculated ejection fraction is 67% by biplane method. There is no evidence of regional wall motion abnormalities. Diastolic function is normal for age. Right Ventricle Normal right ventricular cavity size and systolic function. Atria Both atria are normal in size. Aortic Valve There is a normal trileaflet aortic valve. There is no aortic valve stenosis. There is trace (trivial) aortic valve regurgitation. Mitral Valve The mitral valve appears normal. There is no mitral valve regurgitation. There is no mitral valve stenosis. Pulmonic Valve The pulmonic valve is likely normal. Tricuspid Valve There is trace tricuspid valve regurgitation. There is no evidence of pulmonary hypertension. Great Vessels The asc aorta is normal in size. Venous The inferior vena cava is normal in size and collapses less than 50% with inspiration. Pericardium/Pleural There is no evidence of pericardial effusion. Prior Study Comparison No significant change compared to prior study dated: 08/23/2020. Recommendations, Care & Conclusions No obvious valvular pathology seen on this study. Measurements 2D Linear Measurements IVSd: 0.96 0.6-0.9/0.6-1.0 cm LVIDd: 4.32 3.9-5.3/4.2-5.9 cm LVIDd Index: 2.43 2.4-3.2/2.2-3.1 cm/m2 LVIDs: 3.16 2.0-3.6 cm LVPWd: 0.68 0.7-1.1 cm LA Diam: 3.30 2.7-3.8/3.0-4.0 cm LAIDs Index: 1.85 1.5-2.3 cm/m2 LV Mass: 136.11 67-162/88-224 g LV Mass Index: 76.47 43-95/49-115 g/m2 LVOT Diam: 2.00 3.0+(-)1.3 cm 2D Systolic Function EF 4C: 72.60 >55% EF 2C: 60.90 >55% EF BiP: 66.90 >55% Mitral Valve MV Pk E: 0.78 MV PK A: 0.90 MV Decel Time: 174.00 E/A: 0.90 E'Lateral: 8.27 E'Medial: 6.85 E/E' Med: 11.30 E/E' Lat: 9.40 PHT: 51.00 MVA PHT: 4.31 Decel Adams: 4.46 Aortic Valve AoV Pk Juan: 1.28 AoV Pk Grad: 7.00 QIAN: 2.74 AI Pk Juan: 3.96 AI Adams: 2.55 LVOT LVOT Pk Juan: 1.10 LVOT Mn Juan: 0.70 LVOT VTI: 0.23 LVOT Pk Grad: 5.00 LVOT Mn Grad: 2.00 LVOT Diam: 2.00 LVOT Area: 3.14 Diastolic Function MV Pk E: 0.78 MV Pk A: 0.90 E/A: 0.90 E'Medial: 6.85 E/E' Med: 11.30 E' Laterial: 8.27 E/E' Lat: 9.40 Right Ventricle TAPSE (mm): 21.90 TVS' Juan: 10.90 Tricuspid Valve TR Pk Juan: 2.22 TR Pk Grad: 20.00 RA Press: 8.00 RVSP: 28.00 Great Vessels Aorta Sinus of Valsalva: 2.30 2.0-3.5 cm Ao Asc: 3.10 2.1-3.4 cm Pulmonary Valve PV Pk Juan: 0.92 Peak PV Grad: 3.00 Updated in Other Vendor System with Status of Final Jama Kyle MD electronically signed on 06/25/2024 3:15:35 PM with status of Final
== END ==
LOC: HO.CARD 12:28
PROVIDERS: PCP Family Medicine; Visit Provider Internal Medicine Pulmonary Disease
DX: R06.09 Other forms of dyspnea (principal)
CPT/HCPCS: 93306; Q9957

== ENCOUNTER → 2024-06-25 12:31 | Outpatient (BNV) | payer OTHER, SELFPAY | PROVIDERS: PCP Family Medicine; Visit Provider Internal Medicine | DX: I35.1 Nonrheumatic aortic (valve) insufficiency (principal) | CPT/HCPCS: 93306 ==

== ENCOUNTER 2024-07-22 12:57 | Outpatient (AMB) | payer OTHER, SELFPAY ==
[2024-07-22 13:08] VITALS: BP 108/60; PULSE 72; O2SAT 94; BMI 33.5
--- NOTE | 2024-07-22 13:08 | MHC.OFFVIS ---
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 She has been using Advair 500 and albuterol MDI / nebs. She is interested in restarting immunologic therapy. She has also been using Singulair and loratadine for underlying environmental allergies. Patient denies having recent pulmonary function testing. Patient denies family history of lung disease. After the last office visit patient did not qualify for Xolair, but was started on Nucala with some improvement in her symptoms. She does complain of worsening orthopnea lower extremity edema as she has not been fully compliant with her diuretic regimen. Her 2D echocardiogram is essentially normal. [facility] Medical History Hyperlipidemia Diabetes mellitus HTN (hypertension) CAD (coronary artery disease) Surgical History History of cholecystectomy S/P coronary artery stent placement History of tonsillectomy Family History Father Diabetes HTN (hypertension) CVD (cardiovascular disease) Heart failure Mother CVD (cardiovascular disease) Hypercholesteremia Social History Household Members: Family Housing: House Do you presently have visiting nurse or other home services: No Alcohol intake: former Year quit: 1991 Patient Tobacco Use Status: Former Tobacco user Years Smoked: 20 +/- service: No Review of Systems Const Denies daytime sleepiness, Denies excessive sweating, Denies fatigue, Denies fever(s), Denies lethargy, Denies malaise, Denies night sweats, Denies snoring and Denies weight loss Eyes Denies blurry vision and Denies itchy eyes ENT Denies nasal congestion, Denies post nasal drip, Denies sinus pain, Denies sinus pressure and Denies other ( Thrush) Card Denies chest pain, Reports pedal edema, Denies dyspnea, Reports orthopnea and Denies paroxysmal nocturnal dyspnea Resp Denies cough, Denies hemoptysis, Denies excessive phlegm production, Denies dyspnea, Denies snoring and Denies wheezing GI Denies abdominal pain and Denies heartburn Musc Denies myalgias, Denies arthralgias and Denies joint swelling Skin/Breast Denies rash Neuro Denies memory loss and Denies seizure-like activity Psych Denies abnormal sleep pattern, Denies anxiety and Denies memory loss Endo Denies excessive sweating, Denies fatigue and Denies heat intolerance Paul/Lymph Denies easy bruising Aller/Immun Denies itchy eyes, Denies seasonal rhinorrhea and Denies wheezing Physical Exam Vital Signs: Last Vital Signs Pulse 72 07/22/24 13:08 BP 108/60 07/22/24 13:08 Pulse Ox 94 07/22/24 13:08 Oxygen Delivery Method Room Air 07/22/24 13:08 BMI result Body Mass Index 33.5 Const General: no acute distress and alert Nutritional Appearance: obese Orientation/consciousness: Other orientation findings ( oriented) HEENT Head: Yes atraumatic Eyes General: appearance normal, both eyes and all related structures Sclerae: sclerae normal EOM: EOMs intact bilaterally Neck Neck: Yes supple Lymphatic: no lymphadenopathy noted Resp Effort & Inspection: normal respiratory effort and no use of accessory muscles Auscultation: clear to auscultation bilaterally Cardio Rate: regular rate Rhythm: regular rhythm Heart sounds: no gallops, no murmurs and no rubs Skin General skin exam: other ( warm) Extrem General: No clubbing, No cyanosis and Yes edema (2+ bilateral) Assessment & Plan Assessment & Plan (1) Environmental allergies: Code(s): Z91.09 - Other allergy status, other than to drugs and biological substances Category: Medical Plan: Improved control on Nucala. Continue current regimen. (2) Severe persistent asthma: Code(s): J45.50 - Severe persistent asthma, uncomplicated Category: Medical Plan: Improved after starting Nucala. Continue Nucala, Advair 500, and albuterol MDI. (3) Orthopnea: Code(s): R06.01 - Orthopnea Category: Medical Plan: Worsening orthopnea lower extremity edema secondary to poor compliance with diuretic therapy. Patient has been encouraged to be more compliant with diuretic therapy. Coding Level of Care Code Est Pt Level 4 (44023) Complex EM visit Add On G2211 Diagnoses Environmental allergies Z91.09 Severe persistent asthma J45.50 Orthopnea R06.01
== END 2024-07-22 13:34 | disposition home or self-care (01) ==
PROVIDERS: PCP Family Medicine; Visit Provider Internal Medicine Pulmonary Disease
DX: Z91.09 Other allergy status, other than to drugs and biological substances (principal); J45.50 Severe persistent asthma, uncomplicated; R06.01 Orthopnea
CPT/HCPCS: 99214; G2211

== ENCOUNTER → 2024-07-22 12:57 | Outpatient (BNVA) | payer OTHER, SELFPAY | PROVIDERS: PCP Family Medicine; Visit Provider Internal Medicine Pulmonary Disease | DX: J45.50 Severe persistent asthma, uncomplicated (principal); R06.01 Orthopnea; Z91.09 Other allergy status, other than to drugs and biological substances | CPT/HCPCS: 99212 ==

== ENCOUNTER 2024-08-20 12:25 | Outpatient (AMB) | payer OTHER, SELFPAY ==
--- NOTE | 2024-08-20 12:51 | MHC.OFFVIS ---
Vital Signs 08/20/24 12:53 Height 5 ft 1 in Weight 165 lb BMI 31.2 BP 131/58 L Blood Pressure Location Lt brachial Position Sitting Pulse 80 Intake Visit Reasons: 6 mnth follow up Intake Note: ESTABLISHED PATIENT Malia presents in office today for a scheduled 6 mos FUV. Patient denes any GI issues for today. Road Mechanic Required: No Accompanied by: Self / Same As Patient Allergies ENVIRONMENTAL Allergy (Unknown, Uncoded 02/12/24 13:39) SNEEZING,SOB HPI HPI 6 mnth follow up: Details: LAST VISIT IBS (irritable bowel syndrome) Chronic idiopathic constipation GERD (gastroesophageal reflux disease) Plan Patient will continue taking pantoprazole in the morning and will continue avoiding dietary triggers and late night snacking. Staying upright for minimum 3 hours after meals discussed with patient. Recent worsening respiratory issues with worsening asthma. Patient will have a pulmonary function test done. She is due to go this year for colonoscopy. However patient currently has been having increased respiratory issues. Hyperplastic polyp seen in 2019, however patient does have a history of tubular adenoma. Patient denies any melena, hematochezia, unintentional weight loss or ribbon like stools. Patient will return in 6 months and we will discuss going for colonoscopy. Patient is agreeable to this plan and verbalizes understanding of instructions. She was given the opportunity to ask questions and all questions answered. ? COLONOSCOPY FROM 04/17/2019 Findings: Terminal Ileum ? Not evaluated Cecum ? Normal Ascending Colon ? Normal Transverse Colon - Normal Descending Colon ? Moderate diverticulosis Sigmoid Colon ? Moderate diverticulosis Rectum ? A few 2-4 mm diminutive polyps - three were removed by cold biopsy. Ano-rectum - Normal Colon preparation: Good Impression and Post Procedure Diagnosis: Colonoscopy Findings: Three polyps removed Moderate diverticulosis seen in the left colon Plan: Repeat Colonoscopy interval based on path results ? in 5 years if polyps are adenomatous and due to past history of adenomatous colon polyps. TODAY'S VISIT Patient is here today for follow-up. Patient reports that she has been feeling fairly well. Denies any abdominal pain or discomfort. Able to eat food without any pain or reflux. Denies melena, hematochezia, unintentional weight loss or ribbon like stools. Patient is due to go for colonoscopy in here today to go over prep. Patient has been following up with pulmonology and Cardiology. Denies any cardiac or respiratory symptoms except for occasional shortness of breath due to severe allergies specially with change of seasons. Patient denies any issues with anesthesia in the past. Denies any chest pain or any chest pressure. Reported orthopnea, however patient had not been compliant with her Lasix noticed when reviewing pulmonology notes from July. Patient denies dyspepsia, dysphagia or odynophagia. Taking pantoprazole daily and her symptoms of acid reflux are suppressed. [facility] Medical History Hyperlipidemia Diabetes mellitus HTN (hypertension) CAD (coronary artery disease) Surgical History History of cholecystectomy S/P coronary artery stent placement History of tonsillectomy Family History Father Diabetes HTN (hypertension) CVD (cardiovascular disease) Heart failure Mother CVD (cardiovascular disease) Hypercholesteremia Social History Household Members: Family Housing: House Do you presently have visiting nurse or other home services: No Alcohol intake: former Year quit: 1991 Patient Tobacco Use Status: Former Tobacco user Years Smoked: 20 +/- service: No Review of Systems Const Denies weight gain and Denies weight loss ENT Reports no additional complaints, Denies dysphagia and Denies odynophagia Card Reports no additional complaints Resp Reports no additional complaints GI Denies abdominal pain, Denies belching, Denies melena, Denies bloating, Denies change in bowel habits, Denies dysphagia, Denies excessive flatus, Denies dyspepsia, Denies heartburn, Denies diarrhea, Denies loose stools, Denies nausea, Denies odynophagia and Denies vomiting Musc Reports no additional complaints Neuro Reports no additional complaints Psych Reports no additional complaints Endo Reports no additional complaints Physical Exam Vital Signs: Last Vital Signs Pulse 80 08/20/24 12:53 BP 131/58 L 08/20/24 12:53 BMI result Body Mass Index 31.2 Const General: healthy appearing and no acute distress Nutritional Appearance: obese Orientation/consciousness: patient oriented x3 Resp Effort & Inspection: normal respiratory effort, able to speak in complete sentences, no tracheal deviation and symmetric chest movement Auscultation: wheezes expiratory wheezes (Faint) Cardio Rate: regular rate GI Inspection: Yes normal to inspection, No distended and Yes obesity Palpation (GI): Soft to palpation, not firm, nontender and No hepatosplenomegaly present Auscultation: normal bowel sounds General: Yes no CVA tenderness Back/Spine/Pelvis Back: no CVA tenderness Skin General skin exam: elasticity normal, turgor normal and dry skin Neuro General: patient oriented x3 Psych Appearance: grossly normal Mental Status: mental status grossly normal Assessment & Plan Assessment & Plan (1) IBS (irritable bowel syndrome): Code(s): K58.9 - Irritable bowel syndrome, unspecified Qualifiers: Irritable bowel syndrome type: without diarrhea Qualified Code(s): K58.9 - Irritable bowel syndrome, unspecified (2) Chronic idiopathic constipation: Code(s): K59.04 - Chronic idiopathic constipation (3) GERD (gastroesophageal reflux disease): Code(s): K21.9 - Gastro-esophageal reflux disease without esophagitis Qualifiers: Esophagitis presence: esophagitis presence not specified Qualified Code(s): K21.9 - Gastro-esophageal reflux disease without esophagitis (4) Screen for colon cancer: Code(s): Z12.11 - Encounter for screening for malignant neoplasm of colon Plan What to expect before during and after colonoscopy discussed with patient. Patient denies any chest pain or shortness of breath, occasional shortness of breath when she has asthma attack, however she states that it has not happen often. Patient was encouraged to be very diligent about taking her inhalers and bring rescue inhaler with her to the procedure. Patient denies any GI concerning symptoms. Patient can continue pantoprazole daily. Avoid dietary triggers and late night snacking. Staying upright for minimum 3 hours after meals discussed with patient. Long discussion with patient about the importance of good bowel prep and clear liquid diet day before procedure. Patient will do split MiraLax prep and Dulcolax. Message sent to surgical schedulers to call patient to book procedure. Currently patient denies having any pulmonary and cardiac symptoms that would warrant clearance from her providers, however if we are booking in 2 later time RN is to see if patient has any symptoms and call Dr. Mccall or doctor Benoit for clearance. Patient is agreeable to current plan of care and verbalizes understanding of instructions. I will see her after the procedure, sooner on as needed basis. Patient was given the opportunity to ask questions and all questions answered. Thank you for allowing me to participate in her care Medications: New bisacodyl (Dulcolax (bisacodyl)) take 4 tabs at noon the day before your colonoscopy 20 mg (4 x 5 mg) PO ONCE 1 day 4 tabs 0RF Z12.11 - Encounter for screening for malignant neoplasm of colon polyethylene glycol 3350 (Miralax) As directed by gastroenterology department at [facility] 238 grams PO ONCE 238 grams 0RF Z12.11 - Encounter for screening for malignant neoplasm of colon Coding Level of Care Code Est Pt Level 4 (10058) Complex EM visit Add On G2211 Diagnoses Irritable bowel syndrome without diarrhea K58.9 Irritable bowel syndrome type: without diarrhea Chronic idiopathic constipation K59.04 Gastroesophageal reflux disease, unspecified whether esophagitis present K21.9 Esophagitis presence: esophagitis presence not specified Screen for colon cancer Z12.11 Time Spent (min) 35 Comment 20 minutes spent with patient and additional 15 minutes spent reviewing her records
[2024-08-20 12:53] VITALS: BP 131/58; PULSE 80; BMI 31.2
== END 2024-08-20 13:36 | disposition home or self-care (01) ==
PROVIDERS: PCP Family Medicine; Visit Provider Nurse Practitioner Family
DX: K58.1 Irritable bowel syndrome with constipation (principal); Z12.11 Encounter for screening for malignant neoplasm of colon; K21.9 Gastro-esophageal reflux disease without esophagitis
CPT/HCPCS: 99214; G2211

== ENCOUNTER → 2024-08-20 12:25 | Outpatient (BNVA) | payer OTHER, SELFPAY | PROVIDERS: PCP Family Medicine; Visit Provider Nurse Practitioner Family | DX: Z12.11 Encounter for screening for malignant neoplasm of colon (principal); K58.9 Irritable bowel syndrome, unspecified; K59.04 Chronic idiopathic constipation; K21.9 Gastro-esophageal reflux disease without esophagitis | CPT/HCPCS: 99212 ==

== ENCOUNTER 2025-02-19 14:52 | Outpatient (AMB) | payer OTHER, SELFPAY ==
--- NOTE | 2025-02-19 14:55 | A.OFFVIS_ITS ---
Intake Visit Reasons: overdue follow up s/p US 06/17/24 Intake Note: follow up US 06/17/24. Pt states Left LE worse than Right LE, does have osteoarthritis and neuropathy. Does get LE swelling. Accompanied by: Self / Same As Patient Allergies ENVIRONMENTAL Allergy (Unknown, Uncoded 02/19/25 15:00) SNEEZING,SOB HPI HPI overdue follow up s/p US 06/17/24: Details: Malia is presenting today, over due for review of US, performed on 06/17/24. She states she has had multiple medical conditions since, including being diagnosed with OA and neuropathy. She states she continues with pain in her knees/calves as well as intermittent lower extremity swelling. She has no new concerns today. [facility] Medical History Hyperlipidemia Diabetes mellitus HTN (hypertension) CAD (coronary artery disease) Surgical History History of cholecystectomy S/P coronary artery stent placement History of tonsillectomy Family History Father Diabetes HTN (hypertension) CVD (cardiovascular disease) Heart failure Mother CVD (cardiovascular disease) Hypercholesteremia Social History Household Members: Family Housing: House Do you presently have visiting nurse or other home services: No Alcohol intake: former Year quit: 1991 Patient Tobacco Use Status: Former Tobacco user Years Smoked: 20 +/- service: No Review of Systems Const Reports as per HPI and Denies weakness ENT Reports Normal hearing present and Denies dizziness Card Reports as per HPI, Denies chest pain, Denies chest pain at rest, Denies chest pain with activity, Denies dyspnea and Denies dyspnea on exertion Resp Reports as per HPI, Denies cough, Denies dyspnea and Denies dyspnea on exertion GI Reports as per HPI, Denies abdominal pain, Denies nausea and Denies vomiting Musc Denies numbness Skin/Breast Reports as per HPI, Denies erythema and Denies wounds Neuro Reports Normal hearing present, Denies dizziness, Denies numbness, Denies Sensory deficit (Neuro) and Denies weakness Psych Reports no additional complaints Endo Reports no additional complaints Physical Exam Const General: healthy appearing and no acute distress Orientation/consciousness: patient oriented x3 HEENT Head: Yes normal to inspection Ears: hearing grossly normal bilaterally Mouth: Normal oral and palatal mucosa present Resp Effort & Inspection: normal respiratory effort and able to speak in complete sentences Auscultation: clear to auscultation bilaterally Cardio Jugular venous distension: no JVD Rate: regular rate Rhythm: regular rhythm Heart sounds: S1 normal heart sound present and S2 normal heart sound present Bruits: no abdominal aortic bruits, no carotid bruits, no femoral bruits and no renal bruits Peripheral pulses: Peripheral pulses 2+ throughout GI Inspection: Yes normal to inspection Palpation (GI): No Abdominal aortic bruit present Skin General skin exam: no rashes or lesions noted Wounds: no wounds Hair: normal Neuro General: patient oriented x3 Cranial nerves: Yes Normal hearing present Cognition (Neuro): normal cognition Gait exam (Neuro): Normal gait present Motor exam (neuro): 5/5 motor strength present throughout Sensory Exam: No Sensory deficit (Neuro) Extrem Other: Bilateral lower extremities: +1 pitting edema noted. No varicosities or tortuosities noted. General: Yes normal to inspection, Yes full ROM, Yes capillary refill normal and Yes normal gait Results Reviewed Results Reviewed: Brief summary of venous insufficiency testing is as follows: right great saphenous vein: negative, except at the SFJ with a vein size of 0.6cm and reflux of 1480 right small saphenous vein: negative right accessory vein: none present left great saphenous vein: negative left small saphenous vein: negative left accessory vein: none present Please note there is no evidence of any venous aneurysms or significant tortuosity Assessment & Plan Assessment & Plan (1) Varicose veins of right lower extremity with inflammation: Code(s): I83.11 - Varicose veins of right lower extremity with inflammation Category: Medical Plan: Malia is presenting today for a follow up to [facility], performed on 06/17/24. She states she was delayed in the follow up due to other medical appts and being diagnosed with OA as well as neuropathy. There was no insufficiency found on US, with the exception of the right SFJ with slight reflux. We discussed continuing with compression socks, elevation, and physical activity. We discussed the importance of a healthy, well balanced diet. We discussed that if she had any vascular concerns in the future, she can reach back out to us. Thank you for allowing us to participate in the patient's care. If there are any questions or concerns, please do not hesitate to reach out. Coding Level of Care Code Est Pt Level 4 (45913) Diagnoses Varicose veins of right lower extremity with inflammation I83.11 Comment review of US
--- OUTSIDE RECORDS SUMMARY | 2025-02-19 16:11 | XMS_ITS | Encounter Summary ---
Author Organization [employer] Address [address] [place] [address] [address] [place] [address] Care Team Providers Care Multiple Pressure Riveter Operator Name Role Phone Jacqui Seaman DO Primary Care Provider Encounter Details Date Type Department Care Team ([facility] st Contact Info) Description 10/04/2022 Orders Only [facility] MEDICINE [address] [place] [address] Lesli Murguia LPN Social History Tobacco Use Types Packs/Day Years Used Date Smoking Tobacco: Never Assessed Comments Unknown Sex and Gender Information Value Date Recorded Sex Assigned at Female 07/03/2022 10:16 AM EDT Legal Sex Female 10:16 AM EDT Gender Identity Female 07/03/2022 10:16 AM EDT Sexual Orientation Choose not to disclose 2021 10:16 AM EDT documented as of this encounter Plan of Treatment Not on file documented as of this encounter Visit Diagnoses Not on filedocumented in this encounter Care Teams Multiple Pressure Riveter Operator Relationship Specialty Start Date End Date Jacqui Seaman DO [address] [place] [address] PCP - General Family Medicine 05/12/13 documented as of this encounter
== END 2025-02-19 15:15 | disposition home or self-care (01) ==
LOC: HO.HVS 14:53
PROVIDERS: PCP Family Medicine; Visit Provider Physician Assistant Surgical
DX: I83.11 Varicose veins of right lower extremity with inflammation (principal)
CPT/HCPCS: 99214

== ENCOUNTER → 2025-02-19 14:52 | Outpatient (BNVA) | payer OTHER, SELFPAY | PROVIDERS: PCP Family Medicine; Visit Provider Physician Assistant Surgical | DX: I83.11 Varicose veins of right lower extremity with inflammation (principal) | CPT/HCPCS: 99212 ==

== ENCOUNTER 2025-02-26 15:29 | Outpatient (REF) | payer OTHER, SELFPAY ==
--- OUTSIDE RECORDS SUMMARY | 2025-02-26 19:08 | XMS_ITS | Encounter Summary ---
Author Organization [employer] Address [address] [place] [address] [address] [place] [address] Care Team Providers Care Chorus Dancer Name Role Phone Jacqui Seaman DO Primary Care Provider Encounter Details Date Type Department Care Team ([facility] st Contact Info) Description 10/04/2022 Orders Only [facility] MEDICINE [address] [place] [address] Lesli Murguia LPN Social History Tobacco Use [...] on filedocumented in this encounter Care Teams Chorus Dancer Relationship Specialty Start Date End Date Jacqui Seaman DO [address] [place] [address] PCP - General Family Medicine 05/12/13 documented as of this encounter
== END 2025-02-26 15:30 | disposition home or self-care (01) ==
LOC: HO.MAMMO 15:29
PROVIDERS: PCP Family Medicine; Visit Provider Family Medicine
DX: Z12.31 Encounter for screening mammogram for malignant neoplasm of breast (principal)
CPT/HCPCS: 77063; 77067

== ENCOUNTER → 2025-02-26 15:45 | Outpatient (BNV) | payer OTHER, SELFPAY | PROVIDERS: PCP Family Medicine; Visit Provider Internal Medicine | DX: Z12.31 Encounter for screening mammogram for malignant neoplasm of breast (principal) | CPT/HCPCS: 77063; 77067 ==

== ENCOUNTER 2025-04-15 12:23 | Outpatient (REF) | payer OTHER, SELFPAY ==
--- OUTSIDE RECORDS SUMMARY | 2025-04-15 13:05 | XMS_ITS | Encounter Summary ---
Author Organization [employer] Address [address] [place] [address] [address] [place] [address] Care Team Providers Care Oceanography Teacher Name Role Phone Jacqui Seaman DO Primary Care Provider Encounter Details Date Type Department Care Team ([facility] st Contact Info) Description 10/04/2022 Orders Only [facility] MEDICINE [address] [place] [address] Lesli Murguia LPN Social History Tobacco Use [...] on filedocumented in this encounter Care Teams Oceanography Teacher Relationship Specialty Start Date End Date Jacqui Seaman DO [address] [place] [address] PCP - General Family Medicine 05/12/13 documented as of this encounter
--- OUTSIDE RECORDS SUMMARY | 2025-04-15 13:05 | XMS_ITS | Clinical Summary ---
Author Organization [address] [facility] Address [address] [place] [address] Phone Care Team Providers Care Cellophane Worker Name Role Phone Jacqui Seaman DO Primary Care Provider [phone] Social History Tobacco Use Types Packs/Day Years Used Date Smoking Tobacco: Never Assessed Comments Unknown Sex and Gender Information Value Date Recorded Sex Assigned at Not on file Legal Sex Female 2:56 PM EST Gender Identity Not on file Sexual Orientation Not on file Plan of Treatment Upcoming Encounters Date Type Department Care Team (Late st Contact Info) Description 06/03/2025 1:45 PM EDT Consult Orthopedic Surgery - [place] [id number] [address] Anjum Younger, DPHetal [address] [address] Health Maintenance Due Date Last Done Comments Breast Cancer Screening 1955 DTaP,Tdap,and Td Vaccines (1 - Tdap) 1975 Pneumococcal Vaccine: 50+ Ye ars (1 of 1 - PCV) 2006 Zoster Vaccines (1 of 2) 2006 COVID-19 Vaccine ( - 2023-2 5 season) 2024 Depression Screening 09/03/2024 Colorectal Cancer Screening: Colonoscopy 01/16/2025 Falls Risk Assessment 01/16/2025 Hepatitis C Screening 01/16/2025 Medicare Annual Wellness Visit 01/16/2025 Osteoporosis Screening (Bone Density Screening) 01/16/2025 Social Influencers of Health Screening 01/16/2025 Influenza Vaccine (#1) 2025 RSV Immunization Adult Patie nts (1 - 1-dose 75+ series) 2031 HIB Vaccines Aged Out No longer eligi ble based on patient's age to complete this topic HPV Vaccines Aged Out No longer eligi ble based on patient's age to complete this topic Hepatitis A Vaccines Aged Out No long er eligible based on patient's age to complete this topic Hepatitis B Vaccines Aged Out No long er eligible based on patient's age to complete this topic IPV Vaccines Aged Out No longer eligi ble based on patient's age to complete this topic MMR Vaccines Aged Out No longer eligi ble based on patient's age to complete this topic Meningococcal ACWY Vaccine Aged Out N o longer eligible based on patient's age to complete this topic Meningococcal B Vaccine Aged Out No l onger eligible based on patient's age to complete this topic RSV Immunization Patients Un tavon 20 months Aged Out No longer eligible b ased on patient's age to complete this topic Varicella Vaccines Aged Out No longer eligible based on patient's age to complete this topic [place] [address] [place] [address] MEDICARE Member Subscriber Plan / Payer (Ef fective 2021-Present) Name:Malia Marrero Relation to Subscriber:Self Name:Malia Marrero Payer ID:[id number] Group ID:[id number] Type:Not on file Address: [facility] [place] [address] Care Teams Cellophane Worker Relationship Specialty Start Date End Date Jacqui Seaman DO [address] [place] [address] PCP - General Family Medicine 01/16/25
--- OUTSIDE RECORDS SUMMARY | 2025-04-15 13:05 | XMS_ITS | Patient Health Record ---
Author Organization [facility] Address [address] [place] [id number] Care Team Providers Care Grazing Aide Name Role Phone Sourav Pruett Jr [phone] Reason For Referral No Information Plan Of Treatment No Information
[2025-04-15 13:16] LABS: MANUAL DIFF FLAG NO
[2025-04-15 13:58] LABS: Hemoglobin A1C 177.0571 umol/L; Total Hemoglobin (HGBA1C) 3573.3290 umol/L
[2025-04-15 14:05] LABS: Hematocrit 40.9 % (37.0-47.0); Hemoglobin 13.4 g/dl (12.0-16.0); Imm Gran Abs Auto 0.02 X10*3/uL (0.00-0.03); Imm Gran Pct Auto 0.2 % (0.0-0.4); Lymphocytes Absolute Auto 1.6 X10*3/uL (1.2-4.9); Mean Corpuscular HGB Conc 32.8 g/dl (31.0-35.0); Mean Corpuscular Hemoglobin 26.9 pg (27.0-33.0); Mean Corpuscular Volume 82.0 fL (80.0-98.0); NRBC Abs Auto 0.000 X10*3/uL (0.0-0.012); NRBC Pct Auto 0.0 /100WBC (0.0-0.2); Platelet Count 213 X10*3/uL (160-400); Red Blood Count 4.99 X10*6/uL (4.20-5.50); White Blood Count 8.3 X10*3/uL (4.8-10.8)
[2025-04-15 14:44] LABS: Free T4 (Free Thyroxine) 1.17 ng/dL (0.71-1.85); Thyroid Stimulating Hormone 2.03 uIU/mL (0.32-4.0)
[2025-04-15 14:52] LABS: Alanine Aminotransferase 20 U/L (0-31); Albumin Level 4.1 g/dL (3.5-5.0); Alkaline Phosphatase 126 U/L (39-117); Anion Gap 14 (12-20); Aspartate Amino Transferase 26 U/L (5-31); Blood Urea Nitrogen 20 mg/dL (9-16); Calcium 9.1 mg/dL (8.4-10.2); Carbon Dioxide 29 mmol/L (22-29); Chloride 105 mmol/L (96-108); Cholesterol 143 mg/dL (<200); Estimated Glomerular Filt Rate > 60; HDL Cholesterol 45 mg/dL (>40); Potassium 2.8 mmol/L (3.3-5.1); Sodium 145 mmol/L (135-145); Total Protein 6.9 g/dL (6.5-8.0); Triglycerides 133 mg/dL (<150)
[2025-04-15 17:18] LABS: Microalbum/Creatinine Ratio Ur 3.9 ug/mg cr (<30)
[2025-04-16 04:21] LABS: HIV Num 1 0.04 S/CO (0.00-0.99); ~HepC Num1 0.14 S/CO (0.00-0.79); ~Hepatitis C Antibody Nonreactive (Nonreactive)
[2025-04-17 09:44] LABS: Anti Nuclear Antibody Screen NEGATIVE (NEGATIVE)
[2025-04-19 14:38] LABS: VITAMIN D (1,25 OH) D3 20 pg/mL; Vit D (1,25-Dihydroxy) Total 20 pg/mL (18-72); Vitamin D (1,25 OH) D2 <8 pg/mL
== END 2025-04-15 12:24 | disposition home or self-care (01) ==
LOC: HO.HHCL 12:23
PROVIDERS: PCP Family Medicine; Visit Provider Family Medicine
DX: Z11.3 Encounter for screening for infections with a predominantly sexual mode of transmission (principal); Z01.84 Encounter for antibody response examination; Z11.59 Encounter for screening for other viral diseases; Z11.4 Encounter for screening for human immunodeficiency virus [HIV]; E11.9 Type 2 diabetes mellitus without complications; M79.18 Myalgia, other site; Z71.3 Dietary counseling and surveillance; Z71.82 Exercise counseling
CPT/HCPCS: 36415; 80048; 80061; 80076; 82043; 82550; 82570; 82652; 83036; 84439; 84443; 85025; 85652; 86038; 86140; 86431; 86592; 86803; 87389

== ENCOUNTER 2025-04-15 17:17 | Emergency (ER) | payer OTHER, SELFPAY ==
--- NOTE | 2025-04-15 17:37 | ED.GENADULT ---
HPI - General Adult General Chief complaint: Recheck/Abnormal Lab/Rx Stated complaint: potassium is 2.8, pcp sent to e.r Time Seen by Provider: 04/15/25 18:15 Source: patient Mode of arrival: ambulatory Limitations: no limitations History of Present Illness ED Provider: HPI narrative: Patient with history of hypertension diabetes hyperlipidemia on diuretics furosemide 40 mg daily does not take any p.o. potassium comes here as the potassium level was 2.9 in the lab tested by the PCP patient denied any symptoms no leg cramps no weakness no shortness a breath Related Data Home Medications ?Medication ?Instructions ?Recorded ?Confirmed aspirin 81 mg tablet,delayed 81 mg PO BEDTIME 07/28/20 04/16/25 release buspirone 7.5 mg tablet 7.5 mg PO TID 07/28/20 04/16/25 clonidine HCl 0.1 mg tablet 0.1 mg PO BEDTIME 07/28/20 04/16/25 fluticasone 500 mcg-salmeterol 50 1 ea PO BID 07/28/20 04/16/25 mcg/dose blistr powdr for inhalation fluticasone propionate 50 2 spray intranasal DAILY PRN 07/28/20 04/16/25 mcg/actuation nasal Congestion spray,suspension lisinopril 40 mg tablet 40 mg PO QAM 07/28/20 04/16/25 metoprolol tartrate 50 mg tablet 50 mg PO BID 07/28/20 04/16/25 montelukast 10 mg tablet 10 mg PO BEDTIME 07/28/20 04/16/25 paroxetine HCl 40 mg tablet 40 mg PO QAM 07/28/20 04/16/25 pregabalin 100 mg capsule 100 mg PO TID 08/01/21 04/16/25 famotidine 40 mg tablet 40 mg PO BEDTIME 09/11/22 04/16/25 cholecalciferol (vitamin D3) 50 50 mcg PO QAM 04/19/23 04/16/25 mcg (2,000 unit) capsule (Vitamin D3) albuterol sulfate 2.5 mg/3 mL 2.5 mg inhalation Q4H PRN 11/15/23 04/16/25 (0.083 %) solution for nebulization Shortness Of Breath Or Wheezing docusate sodium 100 mg capsule 100 mg PO BEDTIME PRN Constipation 11/15/23 04/16/25 loratadine 10 mg tablet 10 mg PO DAILY 11/15/23 04/16/25 azelastine 137 mcg (0.1 %) nasal intranasal 02/20/24 04/16/25 spray fluticasone fur. 200 mcg-umeclid 1 ea inhalation DAILY 02/20/24 04/16/25 62.5 mcg-vilant 25 mcg inhalat.powder (Trelegy Ellipta) hydroxyzine pamoate 25 mg capsule 25 mg PO BID 02/20/24 04/16/25 pantoprazole 40 mg tablet,delayed 40 mg PO DAILY 08/20/24 04/16/25 release Previous Rx's ?Medication ?Instructions ?Recorded albuterol sulfate 90 mcg/actuation 2 puff inhalation Q4-6H PRN 02/06/24 aerosol inhaler shortness of breath or wheezing #8.5 grams furosemide 40 mg tablet (Lasix) 40 mg PO DAILY #4 tabs 02/06/24 bisacodyl 5 mg tablet,delayed 20 mg (4 x 5 mg) PO ONCE 1 day #4 08/20/24 release (Dulcolax (bisacodyl)) tabs polyethylene glycol 3350 17 238 g PO ONCE #238 grams 08/20/24 gram/dose oral powder (Miralax) potassium chloride 20 mEq 20 meq PO DAILY #30 tabs 04/15/25 tablet,extended release(part/cryst) (Klor-Con M) Allergies Allergy/AdvReac Type Severity Reaction Status Date / Time ENVIRONMENTAL Allergy Unknown SNEEZING,SO Uncoded 04/15/25 17:39 B Review of Systems Review of Systems: Yes all other systems are reviewed and are negative [facility] Past Medical History Medical History Hyperlipidemia Diabetes mellitus HTN (hypertension) CAD (coronary artery disease) Surgical History History of cholecystectomy S/P coronary artery stent placement History of tonsillectomy Family History Family History Father Diabetes HTN (hypertension) CVD (cardiovascular disease) Heart failure Mother CVD (cardiovascular disease) Hypercholesteremia Social History Social History Household Members: Family Housing: House Do you presently have visiting nurse or other home services: No Alcohol intake: former Year quit: 1991 Patient Tobacco Use Status: Former Tobacco user Years Smoked: 20 +/- service: No Physical Exam ED Vital Signs: Vital Signs - 24 hr 04/15/25 19:59 04/15/25 22:21 04/15/25 23:25 Temperature 97.8 F 98.3 F 98.3 F Pulse Rate 61 62 62 Respiratory Rate 21 H 16 16 Blood Pressure 154/62 H 151/64 H 151/64 H Pulse Oximetry 100 99 99 Oxygen Delivery Method Nasal Cannula Nasal Cannula Nasal Cannula Oxygen Flow Rate 2 2 2 BMI result Body Mass Index 33.3 Appearance: Alert. Oriented X3. No acute distress. Eyes: PERRLA, No Nystagmus ENT: Pharynx normal. Oral Mucosa moist Neck: Normal inspection. Neck supple. CVS: Normal heart rate and rhythm. Pulses normal. Respiratory: No respiratory distress. Equal air entry bilateral, no wheezing/rales/rhonchi Abdomen: Soft and nontender. Bowel sounds are present, no mass palpable, no CVA tenderness Skin: Skin warm and dry. Normal skin color. Normal skin turgor. Extremities: 1+ lower extremity edema. No calf tenderness Neuro: Oriented X 3. No motor deficit. No sensory deficit.No cerebellar signs , cranial nerves II-XII intact Course Course Course Narrative: This is a rapid medical exam performed by Edith Martinez NP: Additional HPI, ROS, PE not included below will be deferred to primary provider. Patient is a 69-year-old female with history of CAD s/p cardiac cath, HTN, DM, HLD, asthma referred to ED by Dr. Seaman for hypokalemia of 2.8. Patient is asymptomatic. Hypoxic at 90% on room air in triage, does not appear to be her baseline. Plan: EKG, labs, viral panel Medications Administered Discontinued Medications Generic Name Dose Route Start Last Admin Trade Name Freq PRN Reason Stop Dose Admin Potassium Chloride 10 meq in 100 mls @ 100 mls/hr 04/15/25 18:45 04/15/25 22:07 Potassium Chloride/H20 IV 04/15/25 20:44 Infused Q1H MELANIE Infusion Potassium Bicarbonate 50 meq 04/15/25 18:36 04/15/25 18:58 Potassium Bicarbonate/Cit Ac 25 Meq Tablet.Eff PO 04/15/25 18:37 50 meq ONCE ONE Administration Potassium Chloride 20 meq 04/15/25 23:11 04/15/25 23:22 Potassium Chloride Er 20 Meq Tab.Er.Prt PO 04/15/25 23:12 20 meq ONCE ONE Administration Medical Decision Making Lab Data 04/15/25 17:54 04/15/25 22:49 Labs: Lab Results 04/15/25 04/15/25 Range/Units 17:54 22:49 WBC 8.2 (4.8-10.8) X10*3/uL RBC 4.60 (4.20-5.50) X10*6/uL Hgb 12.4 (12.0-16.0) g/dl Hct 36.9 L (37.0-47.0) % MCV 80.2 (80.0-98.0) fL MCH 27.0 (27.0-33.0) pg MCHC 33.6 (31.0-35.0) g/dl RDW 13.8 (11.0-16.0) % Plt Count 208 (160-400) X10*3/uL MPV 11.6 (9.4-12.3) fL Immature Gran % (Auto) 0.2 (0.0-0.4) % Neut % (Auto) 59.2 (45-73) % Lymph % (Auto) 26.9 (20-40) % [place] % (Auto) 7.7 (2-11) % Eos % (Auto) 4.9 H (0-4) % Baso % (Auto) 1.1 (0-2) % Lymph # (Auto) 2.2 (1.2-4.9) X10*3/uL [place] # (Auto) 0.6 (0.1-1.2) X10*3/uL Eos # (Auto) 0.4 (0.0-0.4) X10*3/uL Baso # (Auto) 0.1 (0.0-0.2) X10*3/uL Abs Immat Gran (auto) 0.02 (0.00-0.03) X10*3/uL Absolute Neuts (auto) 4.8 (2.0-8.3) x10*3/uL Absolute Nucleated RBC 0.000 (0.0-0.012) X10*3/uL Nucleated RBC % (auto) 0.0 (0.0-0.2) /100WBC Sodium 144 145 (135-145) mmol/L Potassium 2.8 L* 3.5 D (3.3-5.1) mmol/L Chloride 105 107 (96-108) mmol/L Carbon Dioxide 29 26 (22-29) mmol/L Anion Gap 13 16 (12-20) BUN 20 H (9-16) mg/dL Creatinine 0.95 (0.5-1.4) mg/dL Estim Creat Clear Calc 54.2 Estimated GFR 58 Random Glucose 133 H (60-115) mg/dL Calcium 9.3 (8.4-10.2) mg/dL Magnesium 1.8 (1.6-2.6) mg/dL Influenza Type A (PCR) NEGATIVE (Negative) Influenza Type B (PCR) NEGATIVE (Negative) RSV RNA Qual (PCR) NEGATIVE (Negative) SARS-CoV-2 RNA (RT-PCR) NEGATIVE (Negative) Discharge Plan Discharge Clinical Impression: Acute hypokalemia Patient Disposition: Home, Self-Care Instructions: Potassium Content of Foods List (ED), Hypokalemia (ED) Additional Instructions: Your potassium level was low as you are taking the water pill causing the loss of potassium Start taking potassium tablets daily Follow up with your PCP next week to get rechecked your potassium level Prescriptions: New potassium chloride [Klor-Con M20] 20 mEq tablet,ER particles/crystals 20 meq PO DAILY Qty: 30 0RF No Action albuterol sulfate 2.5 mg /3 mL (0.083 %) solution for nebulization 2.5 mg inhalation Q4H PRN (Reason: Shortness Of Breath Or Wheezing) loratadine 10 mg tablet 10 mg PO DAILY docusate sodium 100 mg capsule 100 mg PO BEDTIME PRN (Reason: Constipation) albuterol sulfate 90 mcg/actuation HFA aerosol inhaler 2 puff inhalation Q4-6H PRN (Reason: shortness of breath or wheezing) Qty: 8.5 1RF furosemide [Lasix] 40 mg tablet 40 mg PO DAILY Qty: 4 0RF pregabalin 100 mg capsule 100 mg PO TID buspirone 7.5 mg tablet 7.5 mg PO TID fluticasone propionate 50 mcg/actuation spray,suspension 2 spray intranasal DAILY PRN (Reason: Congestion) lisinopril 40 mg tablet 40 mg PO QAM paroxetine HCl 40 mg tablet 40 mg PO QAM montelukast 10 mg tablet 10 mg PO BEDTIME metoprolol tartrate 50 mg tablet 50 mg PO BID fluticasone propion-salmeterol 500-50 mcg/dose blister with device 1 ea PO BID aspirin 81 mg tablet,delayed release (DR/EC) 81 mg PO BEDTIME clonidine HCl 0.1 mg tablet 0.1 mg PO BEDTIME famotidine 40 mg tablet 40 mg PO BEDTIME cholecalciferol (vitamin D3) [Vitamin D3] 50 mcg (2,000 unit) capsule 50 mcg PO QAM hydroxyzine pamoate 25 mg capsule 25 mg PO BID azelastine 137 mcg (0.1 %) spray,non-aerosol intranasal Trelegy Ellipta 200-62.5-25 mcg blister with device 1 ea inhalation DAILY pantoprazole 40 mg tablet,delayed release (DR/EC) 40 mg PO DAILY bisacodyl [Dulcolax (bisacodyl)] 5 mg tablet,delayed release (DR/EC) 20 mg PO ONCE 1 Days Qty: 4 0RF Rx Instructions: take 4 tabs at noon the day before your colonoscopy polyethylene glycol 3350 [Miralax] 17 gram/dose powder 238 g PO ONCE Qty: 238 0RF Rx Instructions: As directed by gastroenterology department at [facility] Interventions: ED Discharge Assessment Last Done: 04/15/25 23:25 Discharge Date/Time: 04/15/25 23:33 Print Language: Thai
[2025-04-15 17:38] VITALS: BP 133/61; PULSE 71; RESP 16; TEMP 36.6; O2SAT 90; BMI 33.3
--- NOTE | 2025-04-15 17:40 | ECG_ITS ---
Test Reason : HYPOKLEMIA Blood Pressure : */* mmHG Vent. Rate : 68 BPM Atrial Rate : 68 BPM P-R Int : 172 ms QRS Dur : 90 ms QT Int : 410 ms P-R-T Axes : 57 37 70 degrees QTcB Int : 435 ms Normal sinus rhythm Normal ECG When compared with ECG of 05-Feb-2024 23:18, No significant change was found Referred By: Lila Martinez Electronically Signed By: Vernon Mattson
[2025-04-15 18:04] LABS: MANUAL DIFF FLAG NO
[2025-04-15 18:07] VITALS: BP 125/53; PULSE 68; RESP 12; O2SAT 95
[2025-04-15 18:09] LABS: Hematocrit 36.9 % (37.0-47.0); Hemoglobin 12.4 g/dl (12.0-16.0); Imm Gran Abs Auto 0.02 X10*3/uL (0.00-0.03); Imm Gran Pct Auto 0.2 % (0.0-0.4); Lymphocytes Absolute Auto 2.2 X10*3/uL (1.2-4.9); Mean Corpuscular HGB Conc 33.6 g/dl (31.0-35.0); Mean Corpuscular Hemoglobin 27.0 pg (27.0-33.0); Mean Corpuscular Volume 80.2 fL (80.0-98.0); NRBC Abs Auto 0.000 X10*3/uL (0.0-0.012); NRBC Pct Auto 0.0 /100WBC (0.0-0.2); Platelet Count 208 X10*3/uL (160-400); Red Blood Count 4.60 X10*6/uL (4.20-5.50); White Blood Count 8.2 X10*3/uL (4.8-10.8)
[2025-04-15 18:10] VITALS: RESP 20
--- NOTE | 2025-04-15 18:12 | PC.NURSE ---
Pt comes to ED today as directed by her PCP for an abnormal potassium level of 2.8. Pt reports Hx of low potassium in the past. She also complains minor chest pain d/t her asthma and SOB. Pt requires supplemental O2 on arrival to triage for desat to 90% (O2 not needed at baseline.) She reports coughing up phelgm and has been using her rescue inhaler PRN. Pt denies any current sick contacts. A&Ox3 Skin is warm and dry VSS Awaiting blood lab results.
[2025-04-15 18:25] LABS: Anion Gap 13 (12-20); Blood Urea Nitrogen 20 mg/dL (9-16); Calcium 9.3 mg/dL (8.4-10.2); Carbon Dioxide 29 mmol/L (22-29); Chloride 105 mmol/L (96-108); Creatinine Clr Calc Pharmacy 54.2; Estimated Glomerular Filt Rate 58; Magnesium 1.8 mg/dL (1.6-2.6); Potassium 2.8 mmol/L (3.3-5.1); Sodium 144 mmol/L (135-145)
[2025-04-15 18:44] LABS: Resp Syncy Virus RNA Qual PCR NEGATIVE (Negative); SARS COV2 PCR INHOUSE NEGATIVE (Negative)
[2025-04-15] MEDS: Potassium Chloride/H20 10 MEQ/100 ML PIGGYBACK 100 MEQ IV ×2 (18:58→20:09)
[2025-04-15] MEDS: Potassium Bicarbonate/Cit AC 25 MEQ TABLET.EFF 50 MEQ PO (18:58)
--- NOTE | 2025-04-15 19:30 | PC.NURSE ---
Difficulty tolerating K+ gtt, saline running, rate slowed, heat pack applied. Pt refusing another IV site.
[2025-04-15 19:59] VITALS: BP 154/62; PULSE 61; RESP 21; TEMP 36.6; O2SAT 100
--- NOTE | 2025-04-15 21:03 | PC.NURSE ---
Pt standing, ambulating to restroom independently. K still running.
[2025-04-15 22:21] VITALS: BP 151/64; PULSE 62; RESP 16; TEMP 36.8; O2SAT 99
[2025-04-15 23:08] LABS: Anion Gap 16 (12-20); Carbon Dioxide 26 mmol/L (22-29); Chloride 107 mmol/L (96-108); Potassium 3.5 mmol/L (3.3-5.1); Sodium 145 mmol/L (135-145)
[2025-04-15] MEDS: Potassium Chloride ER 20 MEQ TAB.ER.PRT PO (23:22)
[2025-04-15 23:25] VITALS: BP 151/64; PULSE 62; RESP 16; TEMP 36.8; O2SAT 99
== END 2025-04-15 23:33 | disposition home or self-care (01) ==
PROVIDERS: Registered Nurse Emergency; Emergency Provider Internal Medicine; PCP Family Medicine
DX: E87.6 Hypokalemia (principal); R79.89 Other specified abnormal findings of blood chemistry; Z03.818 Encounter for observation for suspected exposure to other biological agents ruled out; Z79.899 Other long term (current) drug therapy
CPT/HCPCS: 36415; 80048; 80051; 83735; 85025; 87637; 93005; 96365; 96366; 99285; J3480

== ENCOUNTER → 2025-04-15 17:40 | Outpatient (BNV) | payer OTHER, SELFPAY | PROVIDERS: Emergency Provider Internal Medicine; PCP Family Medicine; Visit Provider Internal Medicine Cardiovascular Disease | DX: E87.6 Hypokalemia (principal) | CPT/HCPCS: 93010 ==

== ENCOUNTER 2025-04-16 13:45 | Outpatient (AMB) | payer OTHER, SELFPAY ==
--- NOTE | 2025-04-16 14:05 | A.OFFVIS_ITS ---
Vital Signs 04/16/25 14:06 Height 5 ft 1 in Weight 178 lb 9.191 oz BMI 33.7 BP 130/80 Blood Pressure Location Lt brachial Position Sitting Pulse 72 Intake Visit Reasons: 1 yr follow up Intake Note: 1 year follow-up had ekg yesterday was in ER low K Client Support Representative Required: No Allergies ENVIRONMENTAL Allergy (Unknown, Uncoded 04/15/25 17:39) SNEEZING,SOB Medication List - Last Reconciled 04/16/25 by Geovanni Benoit MD albuterol sulfate 2.5 mg inhalation Q4H PRN albuterol sulfate 90 mcg/actuation 2 puffs inhalation Q4-6H PRN aspirin 81 mg PO BEDTIME azelastine intranasal bisacodyl (Dulcolax (bisacodyl)) 20 mg (4 x 5 mg) PO ONCE 1 day buspirone 7.5 mg PO TID cholecalciferol (vitamin D3) (Vitamin D3) 50 mcg PO QAM clonidine HCl 0.1 mg PO BEDTIME docusate sodium 100 mg PO BEDTIME PRN famotidine 40 mg PO BEDTIME fluticasone propion-salmeterol 500-50 mcg/dose 1 ea PO BID fluticasone propionate 50 mcg/actuation 2 sprays intranasal DAILY PRN gbfdejdiuxg-tpnzqjqyc-bgkyiwoq 200-62.5-25 mcg (Trelegy Ellipta) 1 ea inhalation DAILY furosemide (Lasix) 40 mg PO DAILY hydroxyzine pamoate 25 mg PO BID lisinopril 40 mg PO QAM loratadine 10 mg PO DAILY metoprolol tartrate 50 mg PO BID montelukast 10 mg PO BEDTIME pantoprazole 40 mg PO DAILY paroxetine HCl 40 mg PO QAM polyethylene glycol 3350 (Miralax) 238 grams PO ONCE potassium chloride ER (Klor-Con M) 20 mEq PO DAILY pregabalin 100 mg PO TID HPI Comments Details: Malia comes for follow-up. Patient was in the emergency room yesterday because of low potassium that was done through your office. Potassium level was 2.8 and she was referred to the emergency room.. She says she got 2 bags of IV potassium and oral potassium. She was also prescribed prescription for potassium which I do not see in his chart. Patient's potassium had improved 3.5. She says she was on hydrochlorothiazide as well which I do not see on her list but she is on furosemide 40 mg daily for her leg edema. She has had no cardiac symptoms of chest pain but she has a diffuse muscle aches for which she has been advised to come off the atorvastatin therapy. She is also currently off metformin therapy because she does not want to be on metformin therapy. She denies any heart failure symptoms. PENDING SALE TO [facility] Medical History Hyperlipidemia Diabetes mellitus HTN (hypertension) CAD (coronary artery disease) Surgical History History of cholecystectomy S/P coronary artery stent placement History of tonsillectomy Family History Father Diabetes HTN (hypertension) CVD (cardiovascular disease) Heart failure Mother CVD (cardiovascular disease) Hypercholesteremia Social History Household Members: Family Housing: House Do you presently have visiting nurse or other home services: No Alcohol intake: former Year quit: 1991 Patient Tobacco Use Status: Former Tobacco user Years Smoked: 20 +/- service: No Review of Systems Const Denies chills, Denies fatigue, Denies fever(s), Denies frequent falls, Denies weakness, Denies weight gain and Denies weight loss ENT Denies dizziness Card Denies chest pain, Denies leg edema, Denies lightheadedness, Denies palpitat ions, Denies dyspnea, Denies dyspnea on exertion, Denies orthopnea and Denies other (loss of consciousness) Resp Denies cough, Denies dyspnea and Denies dyspnea on exertion GI Denies hematochezia and Denies change in stool character Musc Denies abnormal gait, Denies muscle weakness, Denies numbness, Denies radiating pain into limb and Denies tingling Neuro Denies abnormal gait, Denies dizziness, Denies frequent falls, Denies numbness, Denies tingling and Denies weakness Endo Denies fatigue and Denies palpitations Physical Exam Vital Signs: Last Vital Signs Pulse 72 04/16/25 14:06 BP 130/80 04/16/25 14:06 BMI result Body Mass Index 33.7 Const General: cooperative, comfortable and no acute distress Orientation/consciousness: patient oriented x3 Neck Neck: Yes normal visual inspection and Yes no JVD Resp Other: Bilateral expiratory wheezes noted Effort & Inspection: normal respiratory effort Auscultation: no rales, no rhonchi and wheezes expiratory wheezes Cardio Rate: regular rate Rhythm: regular rhythm Heart sounds: S1 normal heart sound present, S2 normal heart sound present, no gallops, no murmurs and no rubs GI Inspection: Yes normal to inspection Neuro General: patient oriented x3 Extrem General: Yes normal to inspection Psych Appearance: grossly normal Mental Status: mental status grossly normal Speech and movement: Normal speech and movement present Assessment & Plan Assessment & Plan (1) CAD (coronary artery disease): Code(s): I25.10 - Atherosclerotic heart disease of [place] coronary artery without angina pectoris Category: Medical Plan: CAD with remote coronary artery disease and stent placement with no current symptoms. At this point time continue with aggressive medical therapy. She is currently off statin therapy due to muscle aches. I think it is reasonable to pursue statin holiday for 2-4 weeks and see if her symptoms improve. It is also possible symptom Mibi related to hypokalemia. Other causes of musculoskeletal pain also is likely. However she has complete resolution of her pain off statins can consider alternative statin such as Crestor at a lower dose. Target goal LDL less than 70 mg/dL. If she has muscle aches to all different statins then consider PCSK9 inhibitor therapy to reduce LDL cholesterol. Continue aggressive blood pressure control. Continue low-dose aspirin therapy. Also consider potassium supplement therapy with KCL 20 mEq every day to maintain potassium level above 4. Aggressive control of diabetes goal hemoglobin A1c less than 7%. Consider GLP 1 antagonist. (2) HTN (hypertension): Code(s): I10 - Essential (primary) hypertension Category: Medical Plan: Hypertension which is currently well optimized on current therapy. Importance of good blood pressure control was discussed. Target goal blood pressure less than 130/84. Low-salt diet was discussed. Advised to continue to participate in regular physical activity and weight loss program in his stress mitigation strategies was discussed. Will follow up in the clinic in 1 year's time, sooner p.r.n.. Thank you for allowing me to partake in her care Coding Level of Care Code Est Pt Level 4 (77927) Complex EM visit Add On G2211 Diagnoses CAD (coronary artery disease) I25.10 HTN (hypertension) I10
[2025-04-16 14:06] VITALS: BP 130/80; PULSE 72; BMI 33.7
--- OUTSIDE RECORDS SUMMARY | 2025-04-16 14:40 | XMS_ITS | Encounter Summary ---
Author Organization [employer] Address [address] [place] [address] [address] [place] [address] Care Team Providers Care Compliance Auditor Name Role Phone Jacqui Seaman DO Primary Care Provider Encounter Details Date Type Department Care Team ([facility] st Contact Info) Description 10/04/2022 Orders Only [facility] [address] [place] [address] Lesli Murguia LPN Social History Tobacco Use [...] on filedocumented in this encounter Care Teams Compliance Auditor Relationship Specialty Start Date End Date Jacqui Seaman DO [address] [place] [address] PCP - General Family Medicine 05/12/13 documented as of this encounter
--- OUTSIDE RECORDS SUMMARY | 2025-04-16 14:40 | XMS_ITS | Patient Health Record ---
Author Organization [facility] Address [address] [place] [address] Care Team Providers Care Ob Gyn Name Role Phone Sourav Pruett Jr Reason For Referral No Information Plan Of Treatment No Information
--- OUTSIDE RECORDS SUMMARY | 2025-04-16 14:40 | XMS_ITS | Clinical Summary ---
Author Organization [facility] Address [address] [place] [address] Phone Care Team Providers Care Coating Mixer Supervisor Name Role Phone Jacqui Seaman DO Primary Care Provider [phone]- [phone] Social History Tobacco Use Types Packs/Day Years [...] 1:45 PM EDT Consult Orthopedic Surgery - [place] [id number] [address] Anjum Younger, DPHetal [address] [address] Health Maintenance Due Date Last Done Comments [...] patient's age to complete this topic [place] [address] [address] MEDICARE Member Subscriber Plan / Payer (Ef fective 2021-Present) Name:Malia Marrero Relation to Subscriber:Self Name:Malia Marrero Payer ID:[id number] Group ID:[id number] Type:Not on file Address: [facility] [place] [address] Care Teams Coating Mixer Supervisor Relationship Specialty Start Date End Date Jacqui Seaman DO [address] [place] [address] PCP - General Family Medicine 01/16/25
== END 2025-04-16 14:27 | disposition home or self-care (01) ==
LOC: HO.HCS 13:46
PROVIDERS: PCP Family Medicine; Visit Provider Internal Medicine Cardiovascular Disease
DX: I25.10 Atherosclerotic heart disease of native coronary artery without angina pectoris (principal); I10 Essential (primary) hypertension
CPT/HCPCS: 99214; G2211

== ENCOUNTER → 2025-04-16 13:45 | Outpatient (BNVA) | payer OTHER, SELFPAY | PROVIDERS: PCP Family Medicine; Visit Provider Internal Medicine Cardiovascular Disease | DX: I25.10 Atherosclerotic heart disease of native coronary artery without angina pectoris (principal); I10 Essential (primary) hypertension | CPT/HCPCS: 99212 ==

== ENCOUNTER 2025-08-07 14:26 | Outpatient (AMB) | payer OTHER, SELFPAY ==
--- NOTE | 2025-08-07 14:37 | A.OFFVIS_ITS ---
Vital Signs 08/07/25 14:47 Height 5 ft 1 in Weight 168 lb BMI 31.7 BP 146/62 H Blood Pressure Location Rt brachial Position Sitting Pulse 70 Pulse Source Pulse Oximeter Pulse Oximetry (%) 97 Oxygen Delivery Method Room Air Intake Visit Reasons: 6 mth fUV Intake Note: Est pt for mgmt of GERD + CIC. CC; Pt expressed concern with regard to her procedure. She states that they informed her of the preparation and the date of the procedure; however, when she presented to [facility], the procedure was never actually scheduled. She denies any significant GI sx or changes at this time. Confirms she is taking current Rx as instructed and w/o complication. Engineering Technical Writer Required: No Accompanied by: Self / Same As Patient Allergies ENVIRONMENTAL Allergy (Unknown, Uncoded 04/15/25 17:39) SNEEZING,SOB HPI HPI 6 mth fUV: Details: LAST VISIT: IBS (irritable bowel syndrome) Chronic idiopathic constipation GERD (gastroesophageal reflux disease) Screen for colon cancer Plan What to expect before during and after colonoscopy discussed with patient. Patient denies any chest pain or shortness of breath, occasional shortness of breath when she has asthma attack, however she states that it has not happen often. Patient was encouraged to be very diligent about taking her inhalers and bring rescue inhaler with her to the procedure. Patient denies any GI concerning symptoms. Patient can continue pantoprazole daily. Avoid dietary triggers and late night snacking. Staying upright for minimum 3 hours after meals discussed with patient. Long discussion with patient about the importance of good bowel prep and clear liquid diet day before procedure. Patient will do split MiraLax prep and Dulcolax. Message sent to surgical schedulers to call patient to book procedure. Currently patient denies having any pulmonary and cardiac symptoms that would warrant clearance from her providers, however if we are booking in 2 later time RN is to see if patient has any symptoms and call Dr. Mccall or doctor Benoit for clearance. Patient is agreeable to current plan of care and verbalizes understanding of instructions. I will see her after the procedure, sooner on as needed basis. Patient was given the opportunity to ask questions and all questions answered. ? Thank you for allowing me to participate in her care New bisacodyl (Dulcolax (bisacodyl)) take 4 tabs at noon the day before your colonoscopy 20 mg (4 x 5 mg) PO ONCE 1 day 4 tabs 0RF Z12.11 polyethylene glycol 3350 (Miralax) As directed by gastroenterology department at [facility] 238 grams PO ONCE 238 grams 0RF Z12.11 TODAY'S VISIT Patient reports that she did the prep and went for colonoscopy, however patient states that the colonoscopy with never scheduled the computer was surgical test was. Patient however received in the mail directions and date of the procedure. Somehow there was an miscommunication or Ms. Understanding. Patient reports that she has been doing fairly well. Denies any cardiac or respiratory symptoms. 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 Patient has no concerns about the procedure. Understands the prep. Patient will need to be scheduled again she is [facility] Medical History (Updated 08/07/25 @ 15:05 by Damaris Barron [facility]) GERD (gastroesophageal reflux disease) Hyperlipidemia Diabetes mellitus HTN (hypertension) CAD (coronary artery disease) Surgical History History of cholecystectomy S/P coronary artery stent placement History of tonsillectomy Family History Father Diabetes HTN (hypertension) CVD (cardiovascular disease) Heart failure Mother CVD (cardiovascular disease) Hypercholesteremia Social History Household Members: Family Housing: House Do you presently have visiting nurse or other home services: No Alcohol intake: former Year quit: 1991 Patient Tobacco Use Status: Former Tobacco user Years Smoked: 20 +/- service: No Physical Exam Vital Signs: Last Vital Signs Pulse 70 08/07/25 14:47 BP 146/62 H 08/07/25 14:47 Pulse Ox 97 08/07/25 14:47 Oxygen Delivery Method Room Air 08/07/25 14:47 BMI result Body Mass Index 31.7 Assessment & Plan Assessment & Plan (1) Irritable bowel syndrome: Code(s): K58.9 - Irritable bowel syndrome, unspecified Qualifiers: Irritable bowel syndrome type: with constipation Qualified Code(s): K58.1 - Irritable bowel syndrome with constipation (2) Chronic idiopathic constipation: Code(s): K59.04 - Chronic idiopathic constipation (3) Gastroesophageal reflux disease: Code(s): K21.9 - Gastro-esophageal reflux disease without esophagitis Qualifiers: Esophagitis presence: esophagitis presence not specified Qualified Code(s): K21.9 - Gastro-esophageal reflux disease without esophagitis (4) Encounter for screening for malignant neoplasm of colon: Code(s): Z12.11 - Encounter for screening for malignant neoplasm of colon Plan Message sent to surgical schedulers to look procedure for patient. Patient will also go for upper endoscopy. She will start taking pantoprazole every morning half an hour before breakfast. Patient was encouraged to avoid dietary triggers and late night snacking. Staying upright for minimum 3 hours after meals discussed with patient. She is taking famotidine at bedtime. What to expect before during and after procedure discussed with patient. Stressed the importance of good bowel prep and clear liquid diet day before procedure. I will see patient after the procedure, sooner on as needed basis. Patient is agreeable to this plan and verbalizes understanding of instructions. She was given the opportunity to ask questions and all questions answered. Thank you for allowing me to participate in her care Orders: Referrals GI Procedure Notification Z12.11 - Encounter for screening for malignant neoplasm of colon, K21.9 - Gastro-esophageal reflux disease without esophagitis Medications: New pantoprazole 40 mg PO DAILY 90 tabs 2RF bisacodyl (Dulcolax (bisacodyl)) take 4 tabs at noon the day before your colonoscopy 20 mg (4 x 5 mg) PO ONCE 4 tabs 0RF constipation 1 day Z12.11 - Encounter for screening for malignant neoplasm of colon polyethylene glycol 3350 (Miralax) As directed by gastroenterology department at [facility] 238 grams PO ONCE 238 grams 0RF Z12.11 - Encounter for screening for malignant neoplasm of colon docusate sodium 100 mg PO BEDTIME PRN 90 caps 0RF Constipation famotidine 40 mg PO BEDTIME 90 tabs 3RF Coding Level of Care Code Est Pt Level 3 (58821) Diagnoses Irritable bowel syndrome with constipation K58.1 Irritable bowel syndrome type: with constipation Chronic idiopathic constipation K59.04 Gastroesophageal reflux disease, unspecified whether esophagitis present K21.9 Esophagitis presence: esophagitis presence not specified Encounter for screening for malignant neoplasm of colon Z12.11 Time Spent (min) 30 Comment 20 minutes spent with patient and additional 10 minutes spent reviewing her records
[2025-08-07 14:47] VITALS: BP 146/62; PULSE 70; O2SAT 97; BMI 31.7
--- OUTSIDE RECORDS SUMMARY | 2025-08-07 18:33 | XMS_ITS | Clinical Summary ---
Author Organization [address] [facility] Address [address] [place] [address] Phone Care Team Providers Care Residential Director Name Role Phone Soni Seamanfer Salma CHARLTON Primary Care Provider [phone] Allergies Active Allergy Reactions Criticality Noted Date Comments Other 10/24/2022 Other Reaction(s): SNEEZING,SOB Medications ammonium lactate (AmLactin) 12 % lotion Apply topically if needed for dry skin. 400 g 2 5 06/03/20 26 Active Encounters Date Type Department Care Team Description 06/03/2025 1:45 PM EDT Consult Orthopedic [address] [id number] Anjum Younger DPM Controlled type 2 diabetes with neuropathy (CMS/HCC V24, CMS/HCC V28) (Primary Dx); Pain in toes of both feet; Xerosis cutis; Hammertoes of both feet; PVD (peripheral vascular disease) (CMS/HCC V24); Dermatophytosis, nail from Last 3 Months Social History Tobacco Use Types Packs/Day Years Used Date Smoking Tobacco: Never Assessed Comments Unknown Sex and Gender Information Value Date Recorded Sex Assigned at Not on file Legal Sex Female 2:56 PM EST Gender Identity Not on file Sexual Orientation Not on file Plan of Treatment Upcoming Encounters Date Type Department Care Team ([facility] Contact Info) Description 09/09/2025 2:30 PM EST Office Visit Orthopedic [facility] [address] [phone] Anjum Younger DPM [address] [address] Health Maintenance Due Date Last Done Comments Breast Cancer Screening 1956 Colorectal Cancer Screening: Colonoscopy 1956 Diabetes: Annual Foot Exam 1966 Diabetes: Annual Retina Eye Exam 1966 Hepatitis A Vaccines (1 of 2 - Risk 2-dose series) 1975 RSV Immunization Adult Patients (1 - Risk 50-74 years 1-dose series) 2006 Zoster Vaccines (1 of 2) 2006 Depression Screening 09/03/2024 Falls Risk Assessment 01/16/2025 Medicare Annual Wellness Visit 01/16/2025 Osteoporosis Screening (Bone Density Screening) 01/16/2025 Social Influencers of Health Screening 01/16/2025 COVID-19 Vaccine (4 - 2024-2 6 season) 2025 10/17/2022, 04/19/2021, 03/29/2021 Influenza Vaccine (#1) 2025 08/12/2008 Diabetes: Annual Urine Albumin-Creatinine Ratio (uACR) 06/03/2025 Diabetes: Blood Sugar Contro l Test (HGBA1C) 10/16/2025 04/15/2025, 04/15/2025 Diabetes: Annual GFR (Glomerular Filtration Rate) 04/15/2026 04/15/2025 Hypertension/CHF/CAD Annual BMP Blood Test 04/15/2026 04/15/2025 Cholesterol Screening (Lipid Panel) 04/15/2030 04/15/2025 DTaP,Tdap,and Td Vaccines (4 - Td or Tdap) 11/25/2033 11/26/2023, 05/09/2013, 05/01/2006 Pneumococcal Vaccine: 50+ Years Completed 05/10/2022, 06/28/2017, 07/18/2005 Hepatitis B Vaccines Completed 05/28/2024, 12/27/2023, 11/26/2023 Hepatitis C Screening Completed 04/15/2025 HIB Vaccines Aged Out No longer eligi [...] to complete this topic RSV Immunization Patients Under 20 months Aged Out No longer eligible b ased on patient's age to complete this topic Varicella Vaccines Aged Out No longer eligible based on patient's age to complete this topic Insurance [employer] Member Subscriber Plan / Payer (Ef fective 2021-Present) Name:Malia Marrero Relation to Subscriber:Self Name:Malia Marrero Payer ID:[id number] Group ID:[id number] Type:Not on file Address: [facility] [address] [address] Care Teams Residential Director Relationship Specialty Start Date End Date Jacqui Seaman DO [address] [place], [place] PCP - General Family Medicine 01/16/25
== END 2025-08-07 15:15 | disposition home or self-care (01) ==
LOC: HO.HGI 14:27
PROVIDERS: PCP Family Medicine; Visit Provider Nurse Practitioner Family
DX: Z01.818 Encounter for other preprocedural examination (principal); Z12.11 Encounter for screening for malignant neoplasm of colon; K58.1 Irritable bowel syndrome with constipation; K21.9 Gastro-esophageal reflux disease without esophagitis
CPT/HCPCS: 99213

== ENCOUNTER → 2025-08-07 14:26 | Outpatient (BNVA) | payer OTHER, SELFPAY | PROVIDERS: PCP Family Medicine; Visit Provider Nurse Practitioner Family | DX: Z12.11 Encounter for screening for malignant neoplasm of colon (principal); K58.1 Irritable bowel syndrome with constipation; K21.9 Gastro-esophageal reflux disease without esophagitis | CPT/HCPCS: 99212 ==

== ENCOUNTER 2025-08-10 14:19 | Outpatient (AMB) | payer OTHER, SELFPAY ==
[2025-08-10 14:26] VITALS: BP 125/60; PULSE 82; O2SAT 95; BMI 31.9
--- NOTE | 2025-08-10 14:26 | A.OFFVIS_ITS ---
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 She has been using Advair 500 and albuterol MDI / nebs. She is interested in restarting immunologic therapy. She has also been using Singulair and loratadine for underlying environmental allergies. Patient denies having recent pulmonary function testing. Patient denies family history of lung disease. Patient was started on Nucala with some improvement in her symptoms, however she was not able to receive several injections with worsening symptom control. Her 2D echocardiogram is essentially normal. Her orthopnea is well controlled on current diuretic regimen. [facility] Medical History (Updated 08/07/25 @ 15:05 by Damaris Barron, [facility]) GERD (gastroesophageal reflux disease) Hyperlipidemia Diabetes mellitus HTN (hypertension) CAD (coronary artery disease) Surgical History History of cholecystectomy S/P coronary artery stent placement History of tonsillectomy Family History Father Diabetes HTN (hypertension) CVD (cardiovascular disease) Heart failure Mother CVD (cardiovascular disease) Hypercholesteremia Social History Household Members: Family Housing: House Do you presently have visiting nurse or other home services: No Alcohol intake: former Year quit: 1991 Patient Tobacco Use Status: Former Tobacco user Years Smoked: 20 +/- service: No Review of Systems Const Denies daytime sleepiness, Denies excessive sweating, Denies fatigue, Denies fever(s), Denies lethargy, Denies malaise, Denies night sweats, Denies snoring and Denies weight loss Eyes Denies blurry vision and Denies itchy eyes ENT Denies nasal congestion, Denies post nasal drip, Denies sinus pain, Denies sinus pressure and Denies other ( Thrush) Card Denies chest pain, Denies pedal edema, Denies dyspnea, Denies orthopnea and Denies paroxysmal nocturnal dyspnea Resp Denies cough, Denies hemoptysis, Denies excessive phlegm production, Denies dyspnea, Denies snoring and Reports wheezing GI Denies abdominal pain and Denies heartburn Musc Denies myalgias, Denies arthralgias and Denies joint swelling Skin/Breast Denies rash Neuro Denies memory loss and Denies seizure-like activity Psych Denies abnormal sleep pattern, Denies anxiety and Denies memory loss Endo Denies excessive sweating, Denies fatigue and Denies heat intolerance Paul/Lymph Denies easy bruising Aller/Immun Denies itchy eyes, Denies seasonal rhinorrhea and Reports wheezing Physical Exam Vital Signs: Last Vital Signs Pulse 82 08/10/25 14:26 BP 125/60 08/10/25 14:26 Pulse Ox 95 08/10/25 14:26 Oxygen Delivery Method Room Air 08/10/25 14:26 BMI result Body Mass Index 31.9 Const General: no acute distress and alert Nutritional Appearance: not obese Orientation/consciousness: Other orientation findings ( oriented) HEENT Head: Yes atraumatic Eyes General: appearance normal, both eyes and all related structures Sclerae: sclerae normal EOM: EOMs intact bilaterally Neck Neck: Yes supple Lymphatic: no lymphadenopathy noted Resp Effort & Inspection: normal respiratory effort and no use of accessory muscles Auscultation: wheezes (Mild bilateral expiratory) Cardio Rate: regular rate Rhythm: regular rhythm Heart sounds: no gallops, no murmurs and no rubs Skin General skin exam: other ( warm) Extrem General: No clubbing, No cyanosis and No edema Assessment & Plan Assessment & Plan (1) Severe persistent asthma: Code(s): J45.50 - Severe persistent asthma, uncomplicated Category: Medical Plan: Suboptimal control off Nucala. Restart Nucala. Will treat mild exacerbation with prednisone pulse. Continue baseline regimen of Trelegy, albuterol MDI, and nebs. (2) Bilateral leg edema: Code(s): R60.0 - Localized edema Category: Medical Plan: Well controlled on current diuretic regimen of furosemide 40 mg daily. Continue current regimen. (3) Environmental allergies: Code(s): Z91.09 - Other allergy status, other than to drugs and biological substances Category: Medical Plan: Suboptimal control off Nucala. Restart Nucala. Continue Singulair. Medications: New prednisone 40 mg (2 x 20 mg) PO DAILY 10 tabs 0RF Coding Level of Care Code Est Pt Level 4 (14412) Complex visit Add On G2211 Diagnoses Severe persistent asthma J45.50 Bilateral leg edema R60.0 Environmental allergies Z91.09
--- OUTSIDE RECORDS SUMMARY | 2025-08-10 23:14 | XMS_ITS | Encounter Summary ---
Author Organization [employer] Address [address] [place] [address] [address] [place] [address] Care Team Providers Care Civil Rights Attorney Name Role Phone Jacqui Seaman DO Primary Care Provider [phone] Encounter Details Date Type Department Care Team ([facility] st Contact Info) Description 11/01/2022 Orders Only [facility] [address] [place] [address] Jacqui Ferreira LPN Social History Tobacco Use Types Packs/Day Years Used Date Smoking Tobacco: Former Cigarettes Passive Smoke Exposure: Past Smokeless Tobacco: Never Alcohol Use Standard Drinks/Week Comments Never 0 (1 standard drink = 0.6 oz pur e alcohol) Depression Answer Date Recorded Patient Health Questionnaire-9 Score 9 10/17/2022 Depression Answer Date Recorded Patient Health Questionnaire-2 Score 4 10/17/2022 Comments Unknown Sex and Gender Information Value Date Recorded Sex Assigned at Female 07/03/2022 10:16 AM EDT Legal Sex Female 10:16 AM EDT Gender Identity Female 07/03/2022 10:16 AM EDT Sexual Orientation Choose not to disclose 2021 10:16 AM EDT COVID-19 Exposure Response Date Recorded In the last 10 days, have yo u been in contact with someone who was confirmed or suspected to have Coronavirus/COVID-19? No / Unsure 10/17/2022 11:07 AM EST documented as of this encounter Plan of Treatment Not on file documented as of this encounter Visit Diagnoses Not on filedocumented in this encounter Additional Health Concerns Assessment Noted Time PHQ-9 Depression Total Score: 9 10/17/19 23 12:15 PM EST documented as of this encounter Care Teams Civil Rights Attorney Relationship Specialty Start Date End Date Jacqui Seaman DO [address] [place] [address] PCP - General Family Medicine 05/12/13 documented as of this encounter
--- OUTSIDE RECORDS SUMMARY | 2025-08-10 23:14 | XMS_ITS | Encounter Summary ---
Author Organization [employer] Address [address] [place] [address] [address] [place] [address] Care Team Providers Care Mixer Slagman Name Role Phone Jacqui Seaman DO Primary Care Provider Encounter Details Date Type Department Care Team ([facility] st Contact Info) Description 01/31/2023 Orders Only [facility] PEDS [address] [place], [place] [phone] Jacqui Ferreira LPN Social History Tobacco Use [...] documented as of this encounter Care Teams Mixer Slagman Relationship Specialty Start Date End Date Jacqui Seaman DO [address] [place] [address] PCP - General Family Medicine 05/12/13 documented as of this encounter
--- OUTSIDE RECORDS SUMMARY | 2025-08-10 23:14 | XMS_ITS | Encounter Summary ---
Author Organization [employer] Address [address] [place] [address] [address] [place] [address] Care Team Providers Care Yard Coordinator Name Role Phone Jacqui Seaman DO Primary Care Provider [phone] Encounter Details Date Type Department Care Team ([facility] st Contact Info) Description 01/03/2023 Orders Only [facility] MED [facility] PEDS [address] [place], [place] [phone] Jacqui Ferreira LPN Social History Tobacco Use [...] documented as of this encounter Care Teams Yard Coordinator Relationship Specialty Start Date End Date Jacqui Seaman DO [address] [place] [address] PCP - General Family Medicine 05/12/13 documented as of this encounter
--- OUTSIDE RECORDS SUMMARY | 2025-08-10 23:14 | XMS_ITS | Clinical Summary ---
Author Organization [employer] Address [address] [place] [address] [address] [place] [address] Care Team Providers Care Telephone Solicitor Supervisor Name Role Phone Soni Seamanfer Primary Care Provider [phone] Allergies Active Allergy Reactions Criticality Noted Date Comments Other 10/24/2022 Other Reaction(s): SNEEZING,SOB Medications busPIRone (Buspar) 7.5 MG tablet 023 Active cloNIDine (Catapres) 0.1 MG tablet 023 Active docusate sodium (Colace) 100 MG capsule Take 100 mg by mouth at bedtime. 023 Active hydrOXYzine pamoate (Vistaril) 25 MG capsule TAKE 1 CAPSULE BY MOUTH AT BEDTIME NEEDED 023 Active pantoprazole (ProtoNix) 40 MG EC tablet TAKE 1 TABLET BY MOUTH 30 MINUTES BEFORE BREAKFAST 023 Active PARoxetine (Paxil) 40 MG tablet 023 Active zolpidem (Ambien) 5 MG tablet Take 5 mg by mouth if needed at bedtime. 023 Active Umeclidinium [place] (Incruse Ellipta) 62.5 MCG/ACT aerosol powder Inhale 1 puff in the morning. INHALE 1 PUFF DAILY AT THE SAME TIME EVERY DAY 90 each 1 024 Active Azelastine HCl 137 MCG/SPRAY solution INHALE 1 SPRAY IN EACH NOSTRIL TWICE DAILY 30 mL 1 024 Active fluticasone (Flonase) 50 MCG/ACT nasal spray INHALE 2 SPRAYS IN EACH NOSTRIL ONCE DAILY 16 g 5 024 Active predniSONE (Deltasone) 10 MG tablet Take 6 tabs PO daily x 2 days then 5 tabs daily x 2 days then 4 tabs daily x 2 days then 3 tabs daily x 2 days then 2 tabs daily x 2 days then 1 tab daily x 2 days then 0.5 tab daily x 2 days 43 tablet Active albuterol (2.5 MG/3ML) 0.083% nebulizer solutionIndications :Chronic obstructive pulmonary disease, unspecified COPD type (CMS/HCC) ([facility]) INHALE 1 AMPULE USING A NEBULIZER EVERY 4 HOURS NEEDED 270 mL 2 Active Trelegy Ellipta 200-62.5-25 MCG/ACT aerosol powder INHALE 1 PUFF BY MOUTH EVERY MORNING. RINSE MOUTH AFTER USING. 60 each Active amitriptyline (Elavil) 10 MG tablet Take 1 tablet (10 mg) by mouth at bedtime. 30 tablet 5 5 4:34 PM EST 025 2024 Active metFORMIN (Glucophage) 500 MG tablet TAKE 1 TABLET BY MOUTH EVERY EVENING WITH FOOD 90 tablet 3 Active metoprolol tartrate (Lopressor) 50 MG tabletIndications:E ssential hypertension TAKE 1 TABLET BY MOUTH TWICE DAILY IN THE MORNING AND IN THE EVENING WITH MEALS 180 tablet 3 5 4:34 PM EST Active loratadine (Claritin) 10 MG tablet TAKE 1 TABLET BY MOUTH EVERY MORNING 90 tablet 3 Active Calcium + Vitamin D3 600-5 MG-MCG tablet TAKE 1 TABLET BY MOUTH TWICE DAILY IN THE MORNING AND IN THE EVENING 180 tablet 3 025 Active Aspirin EC Adult Low Dose 81 MG EC tablet TAKE 1 TABLET BY MOUTH EVERY EVENING 90 tablet 1 Active hydroCHLOROthiazide (HYDRODiuril) 25 MG tablet TAKE 1 TABLET BY MOUTH EVERY MORNING 90 tablet 1 Active montelukast (Singulair) 10 MG tablet TAKE 1 TABLET BY MOUTH EVERY EVENING 90 tablet 1 Active empagliflozin (Jardiance) 10 MG Take 1 tablet (10 mg) by mouth Once per day. 90 tablet 3 5 4:34 PM EST 025 2025 Active rosuvastatin (Crestor) 40 MG tablet Take 1 tablet (40 mg) by mouth Once per day. 90 tablet 3 5 4:34 PM EST 025 2025 Active amLODIPine (Norvasc) 2.5 MG tabletIndications:E ssential hypertension Take 1 tablet (2.5 mg) by mouth Once per day. 30 tablet 11 5 4:34 PM EST 025 2025 Active Ventolin HFA 108 (90 Base) MCG/ACT inhaler INHALE 2 PUFFS BY MOUTH EVERY 4 TO 6 HOURS NEEDED 18 g 1 025 Active pregabalin (Lyrica) 100 MG capsuleIndications: Neuropathy TAKE 1 CAPSULE BY MOUTH THREE TIMES DAILY IN THE MORNING, EVENING, AND BEDTIME 90 capsule 3 5 4:34 PM EST 025 Active lisinopril 40 MG tabletIndications:E ssential hypertension Take 1 tablet (40 mg) by mouth in the morning. 30 tablet 11 5 4:34 PM EST 025 Active famotidine (Pepcid) 40 MG tabletIndications:C hronic gastroesophageal reflux disease TAKE 1 TABLET BY MOUTH AT BEDTIME 90 tablet 3 025 Active D3 Super Strength 50 MCG (2000 UT) capsule TAKE 1 CAPSULE BY MOUTH EVERY MORNING 30 capsule 11 025 Active D3 Super Strength 50 MCG (2000 UT) capsule TAKE 1 CAPSULE BY MOUTH EVERY MORNING 30 capsule 11 024 2024 Discontinued Active Problems Problem Noted Date Diagnosed Date S/P cardiac catheterization 11/26/2023 Healthcare maintenance 11/26/2023 Assessment & Plan (11/26/2023 3:00 PM EDT): -she declines flu vaccine -s/p COVID vaccine APR 2021 + bivalent Oct 2022 -s/p Tdap MAY 2013 -Td today -s/p pneumovax Jun 2017 -s/p PCV20 MAY 2022 -Hep A immune -Hep B #1 today -encouraged Shingrix vaccine -pap smear wnl/HPV neg SEP 2020 -mammo BIRADS 04 MAY 2022, referred for repeat -colonoscopy with hyperplastic polyps Apr 2019, repeat 2023 per GI -15 pack year smoking history, quit 2005 -STI/HIV screen negative JUL 2021 Diabetic neuropathy 10/10/2023 Assessment & Plan (11/26/2023 2:59 PM EDT): -EMG/NCS with axonal neuropathy b/l APR 2020 -cont lyrica TID Fatty liver 10/10/2023 Assessment & Plan (11/26/2023 2:57 PM EDT): -abd US with echogenic liver MAR 2020, referred for repeat -AFP and LFTs normal JUL 2021 -Hep A immune -Hep B #1 today Moderate persistent asthma 10/10/2023 Assessment & Plan (11/26/2023 2:59 PM EDT): with allergic rhinitis and COPD -PFTs with mild COPD AUG 2018 -change advair/spiriva to trelegy -cont singulair and claritin daily -cont flonase and astelin daily -cont albuterol as needed -referred to pulm for eval and xolair recommendations Allergic rhinitis 12/07/2016 Chronic obstructive lung disease 12/07/2016 Coronary arteriosclerosis 12/07/2016 Assessment & Plan (11/26/2023 2:58 PM EDT): s/p NSTEMI 2005 with stent placement, asymptomatic -stress ECHO with no ischemia JUN 2017 -cardiac cath with non-obstructive disease JUL 2018, will get copy of recent results -cont medical mgmt -cont NTG prn -f/u with cardiology as scheduled, due APR 2024 Depressive disorder 12/07/2016 Assessment & Plan (11/26/2023 2:58 PM EDT): -she denies any current SI/HI -she has the number for crisis and contracts for safety -cont med regimen as per psychiatrist -f/u with new therapist and psychiatry as scheduled Hyperlipidemia 12/07/2016 Assessment & Plan (11/26/2023 2:57 PM EDT): LDL at-goal JUL 2021 -cont lipitor nightly -repeat lipids prior to next visit as not yet done Essential hypertension 12/07/2016 Assessment & Plan (11/26/2023 2:56 PM EDT): BP controlled -cont lisinopril and HCTZ daily -cont metorprolol BID -Cr/GFR and urine microalbumin nml JUL 2021 ->repeat prior to next visit as not yet done -there is EKG in chart -optho as above Migraine 12/07/2016 Osteoarthritis 12/07/2016 Tubular adenoma 12/07/2016 BMI 31.0-31.9,adult 12/07/2016 Type 2 diabetes mellitus 12/07/2016 Assessment & Plan (11/26/2023 2:56 PM EDT): A1c at goal -cont metformin daily -cont aspirin, lisinopril and lipitor daily -advised pt that she does not qualify for CGM -s/p optho eval [address] Wu for annual f/u, will get copy of most recent eval -foot exam next visit* Resolved Problems Problem Noted Date Diagnosed Date Resolved Date Asthma 12/07/2016 10/10/2023 Knee pain 12/07/2016 11/26/2023 Encounters Date Type Department Care Team Description 07/30/2025 Refill [facility] MEDIC[facility] [address] [place] [address] Jacqui Seaman DO 06/11/2025 Refill [facility] [address] [place] [address] Jacqui Seaman DO Chronic gastroesophageal reflux disease 06/09/2025 Refill [facility] [address] [place] [address] Jacqui Seaman DO Essential hypertension 05/31/2025 Refill [facility] [address] [place] [address] Jacqui Seaman DO Neuropathy 05/29/2025 Refill [facility] MEDIC[facility] [address] [place] [address] Jacqui Seaman DO from Last 3 Months Immunizations Immunization Administration Dates Next Due Hep B, adult 05/28/2024,12/27/2023,11/26/2023 Influenza, IIV3, injectable 08/12/2008 Pfizer Covid-19 Vaccine 12+ 04/19/2021, Pfizer Covid-19 Vaccine 12+ Bivalent 10/17/2022 Pneumococcal Conjugate PCV 20 05/10/2022 Pneumococcal Polysaccharide PPSV23 06/28/2017, TD (adult), 2 Lf tetanus tox oid, preservative free, adsorbed 11/26/2023,05/01/2006 Tdap 05/09/2013 Social History Tobacco Use Types Packs/Day Years Used Date Smoking Tobacco: Former Cigarettes Passive Smoke Exposure: Past Smokeless Tobacco: Never Tobacco Cessation:Counseling Given: Not Answered Alcohol Use Standard Drinks/Week Comments Never 0 (1 standard drink = 0.6 oz pur e alcohol) Depression Answer Date Recorded Patient Health Questionnaire-9 Score 6 04/15/2025 Patient Health Questionnaire-9 Score 6 04/15/2025 Last PHQ-9: Questionnaire Data Not on file 0 04/15/2025 Housing Stability Answer Date Recorded What is your housing situation today? I have jess drew 12/05/[address] you li ve. Do you have problems with any of the following? None of the above 12/05/2024 Food Insecurity Answer Date Recorded Within the past 12 months, y ou worried that your food would run out before you got money to buy more: Never True 12/05/2024 Within the past 12 months,th e food you bought just didn't last and you didn't have enough money to get more: Never True 12/2024 Transportation Answer Date Recorded In the past 12 months, has l ack of transportation kept you from medical appts, meetings, work or from getting things needed for daily living? No 12/05/2024 Utilities Answer Date Recorded In the past 12 months, has t he electric, gas, oil or water company threatened to shut off services in your home? No 04/15/2025 Depression Answer Date Recorded Patient Health Questionnaire-2 Score 2 04/15/2025 Internet Access Answer Date Recorded Internet Access Q1 Yes 05/02/2024 Internet Access Q2 Not on file 05/02/2024 Comments No Sex and Gender Information Value Date Recorded Sex Assigned at Female 07/03/2022 10:16 AM EDT Legal Sex Female 10:16 AM EDT Gender Identity Female 07/03/2022 10:16 AM EDT Sexual Orientation Choose not to disclose 2021 10:16 AM EDT Last Filed Vital Signs Vital Sign Reading Time Taken Comments Blood Pressure 120/64 04/15/2025 11:37 AM EDT Pulse 72 04/15/2025 11:37 AM EDT Temperature 36.5 C (97.7 F) 04/15/2025 11:37 AM EDT Respiratory Rate 18 04/15/2025 11:37 AM EDT Oxygen Saturation 98% 12/05/2024 11:55 AM EDT Inhaled Oxygen Concentration - - Weight 80.8 kg (178 lb 3.2 oz) 04/15/2025 11:37 AM EDT Height 154.9 cm (5' 1 ) 04/15/2025 11:37 AM EDT Body Mass Index 33.67 04/15/2025 11:37 AM EDT Plan of Treatment Health Maintenance Due Date Last Done Comments CT Colonography 1955 FIT DNA/Cologuard 1955 FIT 1955 FOBT 1955 Sigmoidoscopy 1955 Diabetes: Foot Exam 1966 Eye Exam 1966 Alcohol/Substance Use Screening 1968 Hepatitis A Vaccines (1 of 2 - Risk 2-dose series) 1975 RSV Patients and Patients Aged 60 years or older (1 - Risk 50-74 years 1-dose series) 2006 Zoster Vaccines (1 of 2) 2006 Colonoscopy 04/17/2024 04/17/2019 Colorectal Cancer Screening 04/17/2024 COVID-19 Vaccine ( season) 2025 10/17/2022, 04/19/2021, 03/29/2021 Influenza Vaccine (#1) 2025 08/12/2008 Diabetes: Hemoglobin A1C 10/16/2025 025, 04/15/2025, 12/05/2024, Additional history exists Mammogram 02/26/2026 02/26/2025, 05/0 10/2023, 05/23/2022, Additional history exists Depression Screening 04/15/2026 04/15/2025, 04/15/20 Diabetes: Urine Protein Screening 04/15/2026 04/15/2025, 07/27/2021, 12/31/2019 Lipid Panel 04/15/2026 04/15/2025, 0811/2023, 09/15/2022 SDOH Screening 04/15/2026 04/15/2025 Tobacco Screening 04/15/2026 04/15/2025 DTaP/Tdap/Td Vaccines (3 - Td or Tdap) 11/25/2033 11/26/2023, 05/09/2013, 05/01/2006 Pneumococcal Vaccine: 50+ Years Completed 05/10/2022, 06/28/2017, 07/18/2005 Hepatitis B Vaccines Completed 05/28/2024, 12/27/2023, 11/26/2023 Hepatitis C Screening Completed 04/15/2025 , 07/27/2021, 12/31/2019 HIB Vaccines Aged Out No longer eligi [...] patient's age to complete this topic Meningococcal Vaccine Aged Out No rachael renuka eligible based on patient's age to complete this topic RSV under 20 months Aged Out No longe r eligible based on patient's age to complete this topic Rotavirus Vaccines Aged Out No longer eligible based on patient's age to complete this topic Procedures Procedure Name Priority Date/Time Associated Diagnosis Comments ALBUMIN, RANDOM URINE W/CREATININE Routine 04/15/2025 3:42 PM EDT Type 2 diabetes mellitus without complication, without long-term current use of insulin ([facility]) Dietary counseling Exercise counseling Pain of muscle of lower leg HEPATITIS C AB W/REFL TO HCV RNA, QN, PCR Routine 04/15/2025 12:37 PM EDT Type 2 diabetes mellitus without complication, without long-term current use of insulin ([facility]) Dietary counseling Exercise counseling Pain of muscle of lower leg LIPID PANEL, STANDARD Routine 04/15/2025 12:37 PM EDT Type 2 diabetes mellitus without complication, without long-term current use of insulin (CMS/HCC) Dietary counseling Exercise counseling Pain of muscle of lower leg POCT GLYCATED HEMOGLOBIN, TOTAL Routine 04/15/2025 11:39 AM EDT Type 2 diabetes mellitus without complication, without long-term current use of insulin (CMS/HCC) BI MAMMOGRAM SCREENING TOMOSYNTHESIS BILATERAL Routine 02/26/2025 3:30 PM EDT Encounter for screening mammogram for breast cancer HM COLONOSCOPY Routine 04/17/2019 10:37 AM EDT from Last 3 Months or Most Recently Relevant to Health Maintenance Results * Albumin, Random Urine W/Creatinine (04/15/2025 3:42 PM EDT) Creatinine, Urine 200.24 mg/dL [facility] Microalbumin Urine 8.0 mg/L [facility] Microalbum Creatinine Ratio Ur 3.9 <30 ug/mg cr [facility] Comment:Albumin/Creatinine R atio Reference Ranges: Normal: < 30 ug/mg creatinine Microalbuminuria: 30 - 300 ug/mg creatinineClinical Albuminuria: > 300 ug/mg creatinine Urine (Urine, Random) 04/15/2025 3:42 PM EDT 04/15/2025 4:36 PM EDT us Jacqui Seaman DO LAB URINE ORDERABLES Final R esult [facility] [address] [place] [phone] * Hepatitis C Antibody with Reflex to HCV, RNA, Quantitative, Real-Time PCR (04/15/2025 12:37 PM EDT) Hepatitis C Antibody Nonreactive Nonreactive [facility] Comment:Antibodies to HCV no t detected; does not exclude early acuteHCV infection. Blood Venous blood specimen / Unknown 04/15/2025 12:37 PM EDT 04/15/2025 1:14 PM EDT Jacqui Urszula DO LAB BLOOD ORDERABLES Final R esult Performing Organization Address [facility] Co de Phone Number [facility] [address] [place] [address] [phone] * Lipid Panel, Standard (04/15/2025 12:37 PM EDT) Triglycerides 133 <150 mg/dL [facility] Comment:Desirable Triglyceri de: less than 150 mg/dLBorderline High Triglyceride 150-199 mg/dLHigh Triglyceride: 200-499 mg/dLVery High Triglyceride: greater than or equal to 5OO mg/dL Cholesterol 143 <200 mg/dL [facility] Comment:Desirable Cholestero l: less than 200 mg/dLBorderline High Cholesterol: 200-239 mg/dLHigh Cholesterol: greater than 239 mg/dL LDL Cholesterol Calculated 72 <100 mg/dL [facility] Comment:Desirable LDL: less than 100 mg/dLNear Optimal/Above Optimal LDL: 110- 129 mg/dLBorderline High LDL: 130-159 mg/dLHigh LDL: 160-189 mg/dLVery High LDL: greater than or equal to 190 mg/dL HDL Cholesterol 45 >40 mg/dL [facility] Comment:Desirable HDL: great er than 40 mg/dL Note: This HDL assay may give artificially low results in patients with liver disease. Blood Venous blood specimen / Unknown 04/15/2025 12:37 PM EDT 04/15/2025 1:14 PM EDT Jacqui Seaman DO LAB BLOOD ORDERABLES Final R esult Performing Organization Address City/[facility]/ZIP Co de Phone Number [facility] [address] [place] [phone] [phone] * (ABNORMAL) POCT HGB A1C (04/15/2025 11:39 AM EDT) Hemoglobin A1C 6.5(A) 4.0 - 5.7 % Blood 04/15/2025 11:3 9 AM EDT Jacqui Seaman DO POINT OF CARE TEST ENTER/ANANT T ORDERABLES Final Result * BI Mammogram Screening Tomosynthesis Bilateral (02/26/2025 3:30 PM EDT) Anatomical Region Laterality Modality Breast Bilateral Mammography 02/26/2025 3:30 PM EDT Narrative 03/14/2025 4:52 PM EDT [facility] [address] [place] [address] Mammography Report Signed Patient: Malia Romeo MR#: [id number] : 1955 Acct:[id number] Age/Sex: 69 / F ADM Date: 02/26/25 Loc: TA Attending Dr: Jacqui Seaman DO Ordering Physician: Jacqui Seaman DO Results: 1N egative Date of Service: 02/26/25 Follow Up: 1 Year From Orig inal Mammogram Procedure(s): MM tomosynthesis screening BI Accession Number(s): [id number] cc: Jacqui Seaman DO EXAMINATION: MM SCREENING DIGITAL BREAST TOMOSYNTHESIS, BILATERAL CLINICAL INFORMATION: Screening. Asymptomatic. COMPARISON: Mammography: Comparison is made with available priors TECHNIQUE: Digital breast mammography with tomosynthesis is performed in both the craniocaudal and mediolateral oblique views along with computer-aided detection (CAD). FINDINGS: There are scattered areas of fibroglandular density (ACR BI-RADS breast composition Category b). There are no significant masses, abnormal calcifications, or other abnormalities. MM/MM tomosynthesis screening BI IMPRESSION: No mammographic evidence of malignancy. ASSESSMENT: BI-RADS BI-RADS 1 - Negative RECOMMENDATION: Routine annual mammography screening. 1 year F/U This examination should not preclude the clinical evaluation of a suspicious palpable abnormality. This patient's information was entered into a reminder system with a target due date for their next mammogram. Electronically signed by: Farzaneh Ken DO 03/14/2025 04:50 PM EDT Dictated By: Farzaneh Ken DO Signed By: <Electronically signed by Farzaneh Ken DO in OV> 03/14/25 1650 DD/ 1530 TD/TT: 02/26/25 1555 Buyer Tobacco Head: Procedure Note Donotuseinterpreter, Image - 03/14/2025 Yasmine [facility] [address] [place] [address] Mammography Report Signed Patient: Pierce Romeo#: [id number] : 1955cct:[id number] Age/Sex: 69 / FADM Date: 02/26/25 Loc: [facility] Attending Dr: Jacqui Seaman DO Ordering Physician: Jacqui Seamanults: 1N egative Date of Service: 02/26/25Follow Up: 1 Year From Orig inal Mammogram Procedure(s): MM tomosynthesis screening BI Accession Number(s): [id number] cc: Jacqui Seaman DO EXAMINATION: MM SCREENING DIGITAL BREAST TOMOSYNTHESIS, BILATERAL CLINICAL INFORMATION: Screening. Asymptomatic. COMPARISON: Mammography: Comparison is made with available priors TECHNIQUE: Digital breast mammography with tomosynthesis is performed in both the craniocaudal and mediolateral oblique views along with computer-aided detection (CAD). FINDINGS: There are scattered areas of fibroglandular density (ACR BI-RADS breast composition Category b). There are no significant masses, abnormal calcifications, or other abnormalities. MM/MM tomosynthesis screening BI IMPRESSION: No mammographic evidence of malignancy. ASSESSMENT: BI-RADS BI-RADS 1 - Negative RECOMMENDATION: Routine annual mammography screening. 1 year F/U This examination should not preclude the clinical evaluation of a suspicious palpable abnormality. This patient's information was entered into a reminder system with a target due date for their next mammogram. Electronically signed by: Farzaneh Ken DO 03/14/2025 04:50 PM EDT Dictated By: Farzaneh Ken DO Signed By: <Electronically signed by Farzaneh Ken DO in OV> 03/14/25 1650 DD/ 1530 TD/TT: 02/26/25 1555 Buyer Tobacco Head: Jacqui Seaman DO IMG BI PROCEDURES Edited Res ult - Final * Hm Colonoscopy (04/17/2019 10:37 AM EDT) us Historical Provider HEALTH MAINTENANCE Final Result from Last 3 Months or Most Recently Relevant to Health Maintenance Insurance [facility] [employer] (HMO D-SNP) [place] [id number] Care Teams Telephone Solicitor Supervisor Relationship Specialty Start Date End Date Jacqui Seaman DO [address] [place] [address] PCP - General Family Medicine 05/12/13
--- OUTSIDE RECORDS SUMMARY | 2025-08-10 23:14 | XMS_ITS | Encounter Summary ---
Author Organization [employer] Address [address] [facility] 7t [place] [address] Care Team Providers Care Machine Rope Maker Name Role Phone Jacqui Seaman DO Primary Care Provider + [phone] Encounter Details Date Type Department Care Team ([facility] st Contact Info) Description 12/13/2023 Orders Only [facility] MEDICINE [address] [place] [address] ProviderToya MD Social History Tobacco Use Types Packs/Day Years Used Date Smoking Tobacco: Former Cigarettes Passive Smoke Exposure: Past Smokeless Tobacco: Never Alcohol Use Standard Drinks/Week Comments Never 0 (1 standard drink = 0.6 oz pur e alcohol) Depression Answer Date Recorded Patient Health Questionnaire-9 Score 9 10/17/2022 Housing Stability Answer Date Recorded What is your housing situation today? I have jess drew 07/11/[address] you li ve. Do you have problems with any of the following? None of the above 07/11/2023 Food Insecurity Answer Date Recorded Within the past 12 months, y ou worried that your food would run out before you got money to buy more: Never True 07/11/2023 Within the past 12 months,th e food you bought just didn't last and you didn't have enough money to get more: Never True 04/2023 Transportation Answer Date Recorded In the past 12 months, has l ack of transportation kept you from medical appts, meetings, work or from getting things needed for daily living? No 07/11/2023 Utilities Answer Date Recorded In the past 12 months, has t he electric, gas, oil or water company threatened to shut off services in your home? No 07/11/2023 Depression Answer Date Recorded Patient Health Questionnaire-2 Score 2 11/26/2023 Comments Unknown Sex and Gender Information Value Date Recorded Sex Assigned at Female 07/03/2022 10:16 AM EDT Legal Sex Female 10:16 AM EDT Gender Identity Female 07/03/2022 10:16 AM EDT Sexual Orientation Choose not to disclose 2021 10:16 AM EDT documented as of this encounter Plan of Treatment Not on file documented as of this encounter Procedures Procedure Name Priority Date/Time Associated Diagnosis Comments BI MAMMOGRAM SCREENING TOMOSYNTHESIS BILATERAL Routine 01/03/2024 1:25 PM EDT HM COLONOSCOPY Routine 04/17/2019 10:37 AM EDT documented in this encounter Results * BI Mammogram Screening Tomosynthesis Bilateral (01/03/2024 1:25 PM EDT) Anatomical Region Laterality Modality Breast Bilateral Mammography 01/03/2024 1:25 PM EDT Narrative 01/28/2024 12:44 PM EDT [facility] [address] [place] [address] Mammography Report Signed Patient: Malia [place]o MR#: [id number] : 1955 Acct:[id number] Age/Sex: 68 / F ADM Date: 01/03/24 Loc: HO.MAMMO Attending Dr: Jacqui Seaman DO Ordering Physician: Jacqui Seaman DO Results: 1N egative Date of Service: 01/03/24 Follow Up: 1 Year From Orig ina Mammogram Procedure(s): MM tomosynthesis screening BI Accession Number(s): [id number] cc: Jacqui Seaman DO EXAMINATION: MM SCREENING DIGITAL BREAST TOMOSYNTHESIS, BILATERAL CLINICAL INFORMATION: Screening. Asymptomatic. COMPARISON: Mammography: This study is compared with prior exams dating back to 2015. TECHNIQUE: Digital breast tomosynthesis is performed in both the craniocaudal and mediolateral oblique views along with computer-aided detection (CAD). Synthesized 2D images are generated from the tomosynthesis. FINDINGS: There are scattered areas of fibroglandular [...] target due date for their next mammogram. Dictated By: Мария Ellis MD Signed By: <Electronically signed by Мария Ellis MD in OV> 01/28/24 1240 DD/ 1325 TD/TT: Finisher Hot Strip: Procedure Note Donotuseinterpreter, Image - 01/28/2024 [facility] [address] [place] [address] Mammography Report Signed Patient: Pierce [place]o#: [id number] : 1955cct:[id number] Age/Sex: 68 / FADM Date: 01/03/24 Loc: TA Attending Dr: Jacqui Seaman DO Ordering Physician: Jacqui Seamanults: 1N egative Date of Service: 01/03/24Follow Up: 1 Year From Orig inal Mammogram Procedure(s): MM tomosynthesis screening BI Accession Number(s): [id number] cc: Jacqui Seaman DO EXAMINATION: MM SCREENING DIGITAL BREAST TOMOSYNTHESIS, BILATERAL CLINICAL INFORMATION: Screening. Asymptomatic. COMPARISON: Mammography: This study is compared with prior exams dating back to 2015. TECHNIQUE: Digital breast tomosynthesis is performed in both the craniocaudal and mediolateral oblique views along with computer-aided detection (CAD). Synthesized 2D images are generated from the tomosynthesis. FINDINGS: There are scattered areas of fibroglandular [...] target due date for their next mammogram. Dictated By: Мария Ellis MD Signed By: <Electronically signed by Мария Ellis MD in OV> 01/28/24 1240 DD/ 1325 TD/TT: Finisher Hot Strip: us Jacqui Seaman DO IMG BI PROCEDURES Final Resu lt * Hm Colonoscopy (04/17/2019 10:37 AM EDT) us Historical Provider HEALTH MAINTENANCE Final Result documented in this encounter Visit Diagnoses Not on filedocumented in this encounter Additional Health Concerns Assessment Noted Time PHQ-9 Depression Total Score: 9 10/17/19 23 12:15 PM EST documented as of this encounter Care Teams Machine Rope Maker Relationship Specialty Start Date End Date Jacqui Seaman DO [address] [place] [address] PCP - General Family Medicine 05/12/13 documented as of this encounter
--- OUTSIDE RECORDS SUMMARY | 2025-08-10 23:14 | XMS_ITS | Encounter Summary ---
Author Organization [employer] Address [address] [place] [address] 7 [place] [address] Care Team Providers Care Algology Teacher Name Role Phone Jacqui Seaman DO Primary Care Provider [phone] Encounter Details Date Type Department Care Team ([facility] st Contact Info) Description 10/04/2022 Orders Only [facility] MEDICINE [address] [place] [address] Lesli Murguia LPN Social History Tobacco Use [...] on filedocumented in this encounter Care Teams Algology Teacher Relationship Specialty Start Date End Date Jacqui Seaman DO [address] [place] [address] PCP - General Family Medicine 05/12/13 documented as of this encounter
--- OUTSIDE RECORDS SUMMARY | 2025-08-10 23:14 | XMS_ITS | Encounter Summary ---
Author Organization [employer] Address [address] [place] [address] 7 [place] [address] Care Team Providers Care Poultry Scalder Name Role Phone Jacqui Seaman DO Primary Care Provider [phone] Encounter Details Date Type Department Care Team ([facility] st Contact Info) Description 04/13/[address] [facility] CHC MED & PEDS [address] [place], [place] [id number] Jacqui Ferreira LPN Social History Tobacco Use [...] documented as of this encounter Care Teams Poultry Scalder Relationship Specialty Start Date End Date Jacqui Seaman DO [address] [place] [address] PCP - General Family Medicine 05/12/13 documented as of this encounter
--- OUTSIDE RECORDS SUMMARY | 2025-08-10 23:14 | XMS_ITS | Encounter Summary ---
Author Organization [employer] Address [address] [place] [address] 7 [place] [address] Care Team Providers Care Conveyor Belt Installer Name Role Phone Jacqui Seaman DO Primary Care Provider + [phone] Reason for Visit * Reason Comments Med Refill Encounter Details Date Type Department Care Team ([facility] st Contact Info) Description 11/04/2024 Refill [facility] MEDICINE [address] [place] [address] Jacqui Seaman DO [address] [place] [address] Social History Tobacco Use Types Packs/Day Years [...] Recorded Patient Health Questionnaire-2 Score 2 11/26/2023 Internet Access Answer Date Recorded Internet Access Q1 Yes 05/02/2024 Internet Access Q2 Not on file 05/02/2024 Comments Unknown Sex and Gender Information Value [...] documented as of this encounter Care Teams Conveyor Belt Installer Relationship Specialty Start Date End Date Jacqui Seaman DO [address] [place] [address] PCP - General Family Medicine 05/12/13 documented as of this encounter
--- OUTSIDE RECORDS SUMMARY | 2025-08-10 23:14 | XMS_ITS | Encounter Summary ---
Author Organization [employer] Address [address] [facility] 7 [place] [address] Care Team Providers Care Architectural Draftsperson Name Role Phone Jacqui Seaman DO Primary Care Provider + [phone] Reason for Visit * Reason Comments Med Refill Encounter Details Date Type Department Care Team ([facility] st Contact Info) Description 07/30/2025 Refill [facility] MEDICINE [address] [place] [address] Jacqui Seaman DO [address] [place] [address] Social History Tobacco Use Types Packs/Day Years [...] Assessment Noted Time PHQ-9 Depression Total Score: 6 04/15/20 25 11:41 AM EDT documented as of this encounter Care Teams Architectural Draftsperson Relationship Specialty Start Date End Date Jacqui Seaman DO [address] [place] [address] PCP - General Family Medicine 05/12/13 documented as of this encounter
--- OUTSIDE RECORDS SUMMARY | 2025-08-10 23:14 | XMS_ITS | Clinical Summary ---
Author Organization [address] [facility] Address [address] [place] [address] Phone Care Team Providers Care Antique Finisher Name Role Phone Soni Seamanfer Salma CHARLTON Primary Care Provider [phone] Allergies Active Allergy Reactions Criticality Noted Date Comments Other 10/24/2022 Other Reaction(s): SNEEZING,SOB Medications ammonium lactate (AmLactin) 12 % lotion Apply topically if needed for dry skin. 400 g 2 5 06/03/20 26 Active Encounters Date Type Department Care Team Description 06/03/2025 1:45 PM EDT Consult Orthopedic [address] [address] Anjum Younger DPM Controlled type [...] Upcoming Encounters Date Type Department Care Team ([facility] Contact Info) Description 09/09/2025 2:30 PM EST Office Visit [facility] [address] [phone] Anjum Younger DPM [address] [address] Health Maintenance Due Date Last Done Comments [...] ID:[id number] Group ID:[id number] Type:Not on file Address: [facility] [address] [address] Care Teams Antique Finisher Relationship Specialty Start Date End Date Jacqui Seaman DO [address] [place], [place] PCP - General Family Medicine 01/16/25
--- OUTSIDE RECORDS SUMMARY | 2025-08-10 23:14 | XMS_ITS | Encounter Summary ---
Author Organization [employer] Address [address] [place] [address] [place] [address] Care Team Providers Care Cabin Agent Name Role Phone Jacqui Seaman DO Primary Care Provider [phone] Reason for Visit * Reason Comments Med Refill Encounter Details Date Type Department Care Team ([facility] st Contact Info) Description 06/08/2023 Refill [facility] MEDICINE [address] [place] [address] Norah Huitron MD [address] [place] [address] Neuropathy Social History Tobacco Use Types Packs/Day Years [...] documented as of this encounter Visit Diagnoses Diagnosis Neuropathy Mononeuritis of unspecified site documented in this encounter Additional Health Concerns Assessment Noted Time PHQ-9 Depression Total Score: 9 10/17/19 23 12:15 PM EST documented as of this encounter Care Teams Cabin Agent Relationship Specialty Start Date End Date Jacqui Seaman DO [address] [place] [address] PCP - General Family Medicine 05/12/13 documented as of this encounter
--- OUTSIDE RECORDS SUMMARY | 2025-08-10 23:14 | XMS_ITS | Encounter Summary ---
Author Organization [employer] Address [address] [facility] 7t [place] [address] Care Team Providers Care Corrugator Operator Name Role Phone Jacqui Seaman DO Primary Care Provider [phone] Reason for Visit * Reason Comments Med Refill Encounter Details Date Type Department Care Team ([facility] st Contact Info) Description 12/18/2024 Refill [facility] CHC MED & PEDS [address] [place] [address] Jacqui Seaman DO [address] [place] [address] Neuropathy Social History Tobacco Use Types Packs/Day Years Used Date Smoking Tobacco: Former Cigarettes Passive Smoke Exposure: Past Smokeless Tobacco: Never Alcohol Use Standard Drinks/Week Comments Never 0 (1 standard drink = 0.6 oz pur e alcohol) Depression Answer Date Recorded Patient Health Questionnaire-9 Score 7 12/05/2024 Patient Health Questionnaire-9 Score 7 12/05/2024 Last PHQ-9: Questionnaire Data Not on file 0 12/05/2024 Housing Stability Answer Date Recorded What is [...] Date Recorded Patient Health Questionnaire-2 Score 2 12/05/2024 Internet Access Answer Date Recorded Internet Access [...] Assessment Noted Time PHQ-9 Depression Total Score: 7 12/06/19 25 12:00 PM EDT documented as of this encounter Care Teams Corrugator Operator Relationship Specialty Start Date End Date Jacqui Seaman DO [address] [place] [address] PCP - General Family Medicine 05/12/13 documented as of this encounter
--- OUTSIDE RECORDS SUMMARY | 2025-08-10 23:14 | XMS_ITS | Encounter Summary ---
Author Organization [employer] Address [address] [place] [address] 7 [place] [address] Care Team Providers Care Tool Carrier Name Role Phone UrszulaJacqui Primary Care Provider + [phone] Reason for Visit * Reason Comments Med Refill Encounter Details Date Type Department Care Team ([facility] st Contact Info) Description 09/29/2023 Refill [facility] MEDICINE [address] [place] [address] Norah Huitron MD [address] [place] [address] Social History Tobacco Use Types Packs/Day Years [...] documented as of this encounter Care Teams Tool Carrier Relationship Specialty Start Date End Date Jacqui Seaman DO [address] [place] [address] PCP - General Family Medicine 05/12/13 documented as of this encounter
--- OUTSIDE RECORDS SUMMARY | 2025-08-10 23:14 | XMS_ITS | Encounter Summary ---
Author Organization [employer] Address [address] [facility] 7 [place] [address] Care Team Providers Care Teaching Specialists Name Role Phone Jacqui Seaman DO Primary Care Provider [phone] Reason for Visit * Reason Comments Med Refill Encounter Details Date Type Department Care Team ([facility] st Contact Info) Description 05/23/2024 Refill [facility] CHC MED & PEDS [address] [place] [address] Jacqui Seaman DO [address] [place] [address] Neuropathy Social History Tobacco Use Types Packs/Day [...] documented as of this encounter Care Teams Teaching Specialists Relationship Specialty Start Date End Date Jacqui Seaman DO [address] [place] [address] PCP - General Family Medicine 05/12/13 documented as of this encounter
== END 2025-08-10 14:46 | disposition home or self-care (01) ==
LOC: HO.HPS 14:19
PROVIDERS: PCP Family Medicine; Visit Provider Internal Medicine Pulmonary Disease
DX: J45.50 Severe persistent asthma, uncomplicated (principal); R60.0 Localized edema; Z91.09 Other allergy status, other than to drugs and biological substances
CPT/HCPCS: 99214; G2211

== ENCOUNTER → 2025-08-10 14:19 | Outpatient (BNVA) | payer OTHER, SELFPAY | PROVIDERS: PCP Family Medicine; Visit Provider Internal Medicine Pulmonary Disease | DX: J45.50 Severe persistent asthma, uncomplicated (principal); R06.00 Dyspnea, unspecified; Z91.09 Other allergy status, other than to drugs and biological substances; Z87.891 Personal history of nicotine dependence; Z79.899 Other long term (current) drug therapy | CPT/HCPCS: 99212 ==